=== PATIENT | male | born 1970 | race African-American/Black ===

== ENCOUNTER 2019-03-04 04:07 | Inpatient (IN) | payer BC ==
[~2019-03-04] VITALS: Ht 185.4 cm; Wt 105.3 kg
[2019-03-04] VITALS (9 sets, daily range): BP systolic 148–221; BP diastolic 85–113
[2019-03-04] MEDS ORDERED: IPRATRPIUM/ALBUTEROL 0.5/2.5MG 3 ML NEBU. NEB ONE (04:15)
[2019-03-04] MEDS ORDERED: NITROGLYCERIN OINT 1 GM PACKET. TP ONE (04:30)
[2019-03-04] MEDS ORDERED: ASPIRIN 325 MG TABLET PO ONE (04:30)
[2019-03-04 04:34] LABS: BASO # 0.1 x10^3/uL (0.0-0.2); BASO % 1 % (0-3); EOS # 0.1 x10^3/uL (0.0-0.7); EOS % 2 % (0-3); HEMATOCRIT 35.3 % (39.0-53.0); HEMOGLOBIN 11.3 g/dL (13.0-17.5); LYMPH # 1.9 x10^3/uL (1.0-4.8); LYMPH % 24 % (24-48); MEAN CORPUSCULAR HEMOGLOBIN 27 pg (25-35); MEAN CORPUSCULAR HGB CONC 32 g/dL (31-37); MEAN CORPUSCULAR VOLUME 83 fL (79-100); MONO # 0.6 x10^3/uL (0.0-1.1); MONO % 8 % (0-9); NEUT # 5.3 x10^3uL (1.8-7.7); NEUT % 66 % (31-73); PLATELET COUNT 142 x10^3/uL (140-400); RED BLOOD COUNT 4.25 x10^6/uL (4.30-5.70); WHITE BLOOD COUNT 8.1 x10^3/uL (4.0-11.0)
[2019-03-04 04:44] LABS: CALCIUM 8.5 mg/dL (8.5-10.1); CREATININE 5.4 mg/dL (0.7-1.3); GFR 11.3; POTASSIUM 3.1 mmol/L (3.5-5.1)
--- NOTE | 2019-03-04 04:50 | PHYS DOC ---
Past Medical History Past Medical History: Diabetes-Type II, Hypertension Past Surgical History: No Surgical History Smoking: Cigarettes Alcohol Use: Occasionally Drug Use: None Adult General Chief Complaint Chief Complaint: SHORTNESS OF BREATH HPI HPI Patient is a 48 year old male who presents with acute onset shortness of breath. Approximately 40 minutes ago, patient was watching TV when he had immediate difficulty breathing. He denies experiencing any chest pain or cough but does remember feeling fairly faint at onset. He is in visible distress with audible crackling during his respirations. Per report of patient's friend, patient is noncompliant with his "water pill" and does not manage his hypertension well. He is a smoker but denies any COPD or asthma. Patient has not had recent sick contacts and denies any complaints aside from shortness of breath at this time. Review of Systems Review of Systems Constitutional: Denies fever or chills [] Eyes: Denies blurred vision or diplopia [] HENT: Denies nasal congestion or sore throat [] Respiratory: Reports shortness of breath and dyspnea. Denies cough. [] Cardiovascular: Denies chest pain or palpitations [] GI: Denies abdominal pain, nausea, vomiting, or diarrhea [] Integument: Denies rash or skin lesions [] Neurologic: Denies headache, focal weakness or sensory changes [] Complete review of systems found to be within normal limits, except as documented in this note. Current Medications Current Medications Current Medications Medications (Trade) Dose Ordered Sig/Sakshi Start Time Stop Time Status Last Admin Dose Admin Albuterol/ Ipratropium (Duoneb) 3 ml 1X ONCE 03/04/19 04:15 03/04/19 04:26 DC 03/04/19 04:20 3 ML Aspirin (Karime Aspirin) 325 mg 1X ONCE 03/04/19 04:30 03/04/19 04:31 DC 03/04/19 04:30 325 MG Bumetanide (Bumex) 1 mg 1X ONCE 03/04/19 05:15 03/04/19 05:16 DC 03/04/19 05:23 1 MG Dextrose (Dextrose 50%-Water Syringe) 12.5 gm PRN Q15MIN PRN 03/04/19 05:00 Fentanyl Citrate (Fentanyl 2ml Vial) 50 mcg PRN Q2HR PRN 03/04/19 05:00 Heparin Sodium (Porcine) (Heparin Sodium) 4,000 unit 1X ONCE 03/04/19 05:15 03/04/19 05:16 DC 03/04/19 05:24 4,000 UNIT Heparin Sodium/ Dextrose 500 ml @ 0 mls/hr CONT PRN 03/04/19 05:15 03/04/19 05:25 20 MLS/HR Hydralazine HCl (Apresoline Inj) 20 mg 1X ONCE 03/04/19 05:15 03/04/19 05:16 DC Labetalol HCl (Normodyne Iv Push) 10 mg 1X ONCE 03/04/19 05:00 03/04/19 05:01 DC 03/04/19 05:40 10 MG Nitroglycerin (Nitro-Bid Oint) 1 inch 1X ONCE 03/04/19 04:30 03/04/19 04:31 DC 03/04/19 04:31 1 INCH Ondansetron HCl (Zofran) 4 mg PRN Q8HRS PRN 03/04/19 05:00 03/05/19 04:59 Potassium Chloride (Klor-Con) 20 meq 1X ONCE 03/04/19 05:15 03/04/19 05:16 DC 03/04/19 05:25 20 MEQ Allergies Allergies Allergies Coded Allergies Type Severity Reaction Last Updated Verified No Known Drug Allergies 03/04/19 No Physical Exam Physical Exam Constitutional: Patient with audible crackles during respiration and in obvious acute distress [] HENT: Normocephalic, atraumatic. [] Eyes: EOMI, conjunctiva normal, no discharge. [] Neck: Normal range of motion, no stridor. [] Cardiovascular: Tachycardia with regular rhythm and no murmur[] Lungs & Thorax: Diffuse crackles throughout b/l lung roche. [] Abdomen: Protuberant, soft and nontender [] Skin: Warm, dry, no erythema, no rash. [] Extremities: Radial pulses +2 b/l, cap refill < 2 seconds. [] Neurologic: Alert and oriented, normal motor function, normal sensory function, no focal deficits noted. [] Psychologic: Affect normal, judgement normal, mood anxious. [] Current Patient Data Vital Signs Vital Signs Date Time Temp Pulse Resp B/P (MAP) Pulse Ox O2 Delivery O2 Flow Rate FiO2 03/04/19 05:34 102 27 212/130 (157) 97 Nasal Cannula 2.0 03/04/19 04:15 98.0 98.0 Lab Values Laboratory Tests Test 03/04/19 04:25 White Blood Count 8.1 x10^3/uL (4.0-11.0) Red Blood Count 4.25 x10^6/uL (4.30-5.70) L Hemoglobin 11.3 g/dL (13.0-17.5) L Hematocrit 35.3 % (39.0-53.0) L Mean Corpuscular Volume 83 fL (79-100) Mean Corpuscular Hemoglobin 27 pg (25-35) Mean Corpuscular Hemoglobin Concent 32 g/dL (31-37) Red Cell Distribution Width 14.0 % (11.5-14.5) Platelet Count 142 x10^3/uL (140-400) Neutrophils (%) (Auto) 66 % (31-73) Lymphocytes (%) (Auto) 24 % (24-48) Monocytes (%) (Auto) 8 % (0-9) Eosinophils (%) (Auto) 2 % (0-3) Basophils (%) (Auto) 1 % (0-3) Neutrophils # (Auto) 5.3 x10^3uL (1.8-7.7) Lymphocytes # (Auto) 1.9 x10^3/uL (1.0-4.8) Monocytes # (Auto) 0.6 x10^3/uL (0.0-1.1) Eosinophils # (Auto) 0.1 x10^3/uL (0.0-0.7) Basophils # (Auto) 0.1 x10^3/uL (0.0-0.2) Sodium Level 143 mmol/L (136-145) Potassium Level 3.1 mmol/L (3.5-5.1) L Chloride Level 105 mmol/L (98-107) Carbon Dioxide Level 23 mmol/L (21-32) Anion Gap 15 (6-14) H Blood Urea Nitrogen 53 mg/dL (8-26) H Creatinine 5.4 mg/dL (0.7-1.3) H Estimated GFR (Cockcroft-Gault) 11.3 BUN/Creatinine Ratio 10 (6-20) Glucose Level 121 mg/dL (70-99) H Lactic Acid Level 1.4 mmol/L (0.4-2.0) Calcium Level 8.5 mg/dL (8.5-10.1) Magnesium Level 2.0 mg/dL (1.8-2.4) Total Bilirubin 0.3 mg/dL (0.2-1.0) Aspartate Amino Transferase (AST) 23 U/L (15-37) Alanine Aminotransferase (ALT) 29 U/L (16-63) Alkaline Phosphatase 84 U/L (46-116) Creatine Kinase 490 U/L (39-308) H Creatine Kinase MB (Mass) 5.6 ng/mL (0.0-3.6) H Creatine Kinase MB Relative Index 1.1 % (0-4) Troponin I Quantitative 0.192 ng/mL (0.000-0.055) GR-Awr-P-Type Natriuretic Peptide 6302 pg/mL (0-124) H Total Protein 8.2 g/dL (6.4-8.2) Albumin 3.5 g/dL (3.4-5.0) Albumin/Globulin Ratio 0.7 (1.0-1.7) L Laboratory Tests 03/04/19 04:25 Laboratory Tests 03/04/19 04:25 EKG EKG @ 0418: Sinus tachycardia with rate of 113. Normal axis. No Q waves present. ST depression and T inversions in leads I, II, aVL, V5 and V6. No ST elevation. [] Radiology/Procedures Radiology/Procedures Chest AP Only: Cardiomegaly with cephalization of pulmonary vasculature and prominent lung markings. Initial interpretation provided by ED physician. [] Course & Med Decision Making Course & Med Decision Making Pertinent Labs and Imaging studies reviewed. (See chart for details) Patient is a 48 year old male who presents to the ED with acute onset shortness of breath. Lung auscultation revealed diffuse crackles in both lung roche. EKG showed sinus tachycardia with rate of [address] depression and T inversion in I, II, aVL, V5 and V6 suggestive of ischemia. Troponin 0.192. CK-MB of 5.6. Pro-BNP 6302. Chest X-ray showed cardiomegaly with cephalization of pulmonary vasculature and prominent lung markings. Creatinine 5.4. K of 3.1. CBC unremarkable. Patient given labetalol without adequate reduction of blood pressure and was thus given hydralazine. Blood pressure currently 199/124 with HR of 88. Bumex given. Cardiology consulted who recommended initiation of heparin given elevated troponin. Discussed with patient that his symptoms and results likely represent flash pulmonary edema and myocardial strain. Patient requiring admission for further evaluation and treatment. Discussed with Dr. Cobian who is in agreement with admission. Discussed findings and plan with patient and family, who acknowledge understanding and agreement. [] Dragon Disclaimer Dragon Disclaimer This electronic medical record was generated, in whole or in part, using a voice recognition dictation system. Departure Departure Impression: Primary Impression: Shortness of breath Additional Impressions: Hypoxia Elevated troponin Hypokalemia Elevated serum creatinine Disposition: ADMITTED INPATIENT Admitting Physician: Other (Aranza) Condition: GUARDED Problem Qualifiers AGGIE ROSE DO March 04, 2019 04:49
[2019-03-04 04:52] LABS: ALBUMIN 3.5 g/dL (3.4-5.0); ALBUMIN/GLOBULIN RATIO 0.7 (1.0-1.7); TOTAL BILIRUBIN 0.3 mg/dL (0.2-1.0); TOTAL PROTEIN 8.2 g/dL (6.4-8.2)
[2019-03-04] MEDS ORDERED: LABETALOL 20 MG/4 ML DISP.SYRIN. IVP ONE (05:00)
[2019-03-04] MEDS ORDERED: ONDANSETRON PF 4 MG/2 ML VIAL. IV PRN (05:00)
[2019-03-04] MEDS ORDERED: DEXTROSE 50% 25 GM / 50ML DISP.SYRIN. IV PRN (05:00)
[2019-03-04] MEDS ORDERED: BUMETANIDE 1 MG/4 ML VIAL. IV ONE (05:15)
[2019-03-04] MEDS ORDERED: hydrALAZINE 20 MG/ML VIAL. IVP ONE (05:15)
[2019-03-04] MEDS ORDERED: HEPARIN for IV BOLUS 10,000 UNIT/10 ML VIAL. IV ONE (05:15)
[2019-03-04] MEDS ORDERED: POTASSIUM CHLORIDE 20 MEQ TABLET.ER. PO ONE (05:15)
[2019-03-04] MEDS: HEPARIN 25,000UTS/500ML PREMIX 500 ML IV PRN (05:25)
[2019-03-04 06:36] LABS: BILIRUBIN,URINE NEGATIVE (NEG); CLARITY,URINE CLEAR; COLOR,URINE YELLOW; NITRITE,URINE NEGATIVE (NEG); PH,URINE 5.5; PROTEIN,URINE 100 mg/dL (NEG-TRACE); UROBILINOGEN,URINE 0.2 mg/dL (0.2 mg/dL)
--- NOTE | 2019-03-04 06:48 | RAD ---
CHEST AP ONLY Clinical Indication: Dyspnea Comparison: None. Findings: Mildly tortuous thoracic aorta. Cardiac size upper limits of normal. Lungs are clear. There is no pneumothorax. No pleural effusion is appreciated. No acute bone abnormality. IMPRESSION: No acute cardiopulmonary process. Electronically signed by: Galileo Tinoco MD (03/04/2019 6:45 AM) [facility]
[2019-03-04 06:59] LABS: BARBITURATES NEG (NEG); BENZODIAZEPINES NEG (NEG); CANNABINOIDS NEG (NEG); COCAINE NEG (NEG); METHADONE NEG (NEG); OPIATES NEG (NEG); PHENCYCLIDINE NEG (NEG)
[2019-03-04 07:01] LABS: AMPHETAMINE/METHAMPHETAMINE NEG (NEG)
[2019-03-04 07:11] LABS: BACTERIA,URINE 0 /HPF (0-FEW); HYALINE CASTS, URINE OCCASIONAL /HPF; SQUAMOUS EPITHELIAL CELL,UR OCC /LPF; WBC,URINE OCC /HPF (0-4)
[2019-03-04] MEDS: IPRATRPIUM/ALBUTEROL 0.5/2.5MG 3 ML NEBU. NEB SCH ×2 (07:57→12:12)
[2019-03-04] MEDS: INSULIN LISPRO 300 UNITS/3 ML INSULN.PEN. SQ SCH ×3 (08:00→17:00)
--- NOTE | 2019-03-04 08:59 | NUR ---
nursing note patient states he has no history diabetes and does not want his blood sugar checked or insulin administered
[2019-03-04] MEDS: fentaNYL PF VIAL 100 MCG/2 ML VIAL IV PRN (09:41)
--- NOTE | 2019-03-04 09:52 | PDOC1 ---
History and Physical Date of Admission Date of Admission DATE: 03/04/19 TIME: 09:52 Identification/Chief Complaint Chief Complaint SEEN IN ER THIS AM ,,Patient is a 48 year old male who presents to the ED with acute onset shortness of breath. Lung auscultation revealed diffuse crackles in both lung roche. EKG showed sinus tachycardia with rate of [address] depression and T inversion in I, II, aVL, V5 and V6 suggestive of ischemia. Troponin 0.192. CK-MB of 5.6. Pro-BNP 6302. Chest X-ray showed cardiomegaly with cephalization of pulmonary vasculature and prominent lung markings. Creatinine 5.4. K of 3.1. CBC unremarkable. Patient given labetalol without adequate reduction of blood pressure and was thus given hydralazine. Blood pressure currently 199/124 with HR of 88. Bumex given. Cardiology consulted patient was watching TV when he had immediate difficulty breathing. He denies experiencing any chest pain or cough but does remember feeling fairly faint at onset. Per report of patient's friend, patient is noncompliant with his "water pill" and does not manage his hypertension well. He is a smoker but denies any COPD or asthma. 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[employer] Psych: Addictions Renal/: Chronic renal insuff, Chronic renal failure Dermatology: No pertinent hx Family History Family History: Alcohol Abuse, Hypertension Social History Smoke: <1 pack per day ALCOHOL: heavy Drugs: None Current Problem List Problem List Problems Medical Problems: (1) Elevated serum creatinine Status: Acute (2) Elevated troponin Status: Acute (3) Hypokalemia Status: Acute (4) Shortness of breath Status: Acute Current Medications Current Medications Current Medications Albuterol/ Ipratropium (Duoneb) 3 ml 1X ONCE NEB Last administered on 03/04/19at 04:20; Start 03/04/19 at 04:15; Stop 03/04/19 at 04:26; Status DC Nitroglycerin (Nitro-Bid Oint) 1 inch 1X ONCE TP Last administered on 03/04/19at 04:31; Start 03/04/19 at 04:30; Stop 03/04/19 at 04:31; Status DC Aspirin (Karime Aspirin) 325 mg 1X ONCE PO Last administered on 03/04/19 04:30; Start 03/04/19 at 04:30; Stop 03/04/19 at 04:31; Status DC Labetalol HCl (Normodyne Iv Push) 10 mg 1X ONCE IVP Last administered on 03/04/19at 05:40; Start 03/04/19 at 05:00; Stop 03/04/19 at 05:01; Status DC Ondansetron HCl (Zofran) 4 mg PRN Q8HRS PRN IV NAUSEA/VOMITING; Start 03/04/19 at 05:00; Stop 03/05/19 at 04:59 Fentanyl Citrate (Fentanyl 2ml Vial) 50 mcg PRN Q2HR PRN IV PAIN Last administered on 03/04/19at 09:41; Start 03/04/19 at 05:00 Albuterol/ Ipratropium (Duoneb) 3 ml RTQID NEB Last administered on 03/04/19at 07:57; Start 03/04/19 at 08:00; Stop 03/05/19 at 07:59 Insulin Human Lispro (HumaLOG) 0-5 UNITS TIDWMEALS SQ ; Start 03/04/19 at 08:00 Dextrose (Dextrose 50%-Water Syringe) 12.5 gm PRN Q15MIN PRN IV SEE COMMENTS; Start 03/04/19 at 05:00 Hydralazine HCl (Apresoline Inj) 20 mg 1X ONCE IVP Last administered on 03/04/19at 06:09; Start 03/04/19 at 05:15; Stop 03/04/19 at 05:16; Status DC Heparin Sodium (Porcine) (Heparin Sodium) 4,000 unit 1X ONCE IV Last administered on 03/04/19 05:24; Start 03/04/19 at 05:15; Stop 03/04/19 at 05:16; Status DC Heparin Sodium/ Dextrose 500 ml @ 0 mls/hr CONT PRN IV SEE I/O RECORD Last administered on 03/04/19at 05:25; Start 03/04/19 at 05:15 Potassium Chloride (Klor-Con) 20 meq 1X ONCE PO Last administered on 5/18/19at 05:25; Start 03/04/19 at 05:15; Stop 03/04/19 at 05:16; Status DC Bumetanide (Bumex) 1 mg 1X ONCE IV Last administered on 03/04/19at 05:23; Start 03/04/19 at 05:15; Stop 03/04/19 at 05:16; Status DC Allergies Allergies: Coded Allergies: No Known Drug Allergies (Unverified , 03/04/19) ROS Review of System Review of Systems Review of Systems Constitutional: Denies fever or chills [] Eyes: Denies blurred vision or diplopia [] HENT: Denies nasal congestion or sore throat [] Respiratory: Reports shortness of breath and dyspnea. Denies cough. [] Cardiovascular: Denies chest pain or palpitations [] GI: Denies abdominal pain, nausea, vomiting, or diarrhea [] Integument: Denies rash or skin lesions [] Neurologic: Denies headache, focal weakness or sensory changes [] 14 PT review of systems found to be within normal limits, except as documented Physical Exam Physical Exam Physical Exam Physical Exam Constitutional: Patient with audible crackles during respiration and in obvious acute distress [] HENT: Normocephalic, atraumatic. [] Eyes: EOMI, conjunctiva normal, no discharge. [] Neck: Normal range of motion, no stridor. [] Cardiovascular: Tachycardia with regular rhythm and no murmur[] Lungs & Thorax: Diffuse crackles throughout b/l lung roche. [] Abdomen: Protuberant, soft and nontender [] Skin: Warm, dry, no erythema, no rash. [] Extremities: Radial pulses +2 b/l, cap refill < 2 seconds. [] Neurologic: Alert and oriented, normal motor function, normal sensory function, no focal deficits noted. [] Psychologic: Affect normal, judgement normal, mood anxious. [] General: Alert, Oriented X3, Cooperative, mild distress HEENT: Atraumatic, EOMI, Mucous membr. moist/pink Heart: no thrills Breasts: Not examined Abdomen: Normal bowel sounds, Soft Rectal Exam: not examined Extremities: No cyanosis Neuro: Normal speech, Cranial nerves 3-12 NL Psych/Mental Status: Mental status NL, Mood NL Vitals Vitals Vital Signs Date Time Temp Pulse Resp B/P (MAP) Pulse Ox O2 Delivery O2 Flow Rate FiO2 03/04/19 09:41 16 95 Room Air 03/04/19 08:00 98.6 92 152/85 (107) 2.0 98.6 Labs Labs Laboratory Tests Test 03/04/19 04:25 03/04/19 06:10 03/04/19 07:35 White Blood Count 8.1 x10^3/uL (4.0-11.0) Red Blood Count 4.25 x10^6/uL (4.30-5.70) Hemoglobin 11.3 g/dL (13.0-17.5) Hematocrit 35.3 % (39.0-53.0) Mean Corpuscular Volume 83 fL (79-100) Mean Corpuscular Hemoglobin 27 pg (25-35) Mean Corpuscular Hemoglobin Concent 32 g/dL (31-37) Red Cell Distribution Width 14.0 % (11.5-14.5) Platelet Count 142 x10^3/uL (140-400) Neutrophils (%) (Auto) 66 % (31-73) Lymphocytes (%) (Auto) 24 % (24-48) Monocytes (%) (Auto) 8 % (0-9) Eosinophils (%) (Auto) 2 % (0-3) Basophils (%) (Auto) 1 % (0-3) Neutrophils # (Auto) 5.3 x10^3uL (1.8-7.7) Lymphocytes # (Auto) 1.9 x10^3/uL (1.0-4.8) Monocytes # (Auto) 0.6 x10^3/uL (0.0-1.1) Eosinophils # (Auto) 0.1 x10^3/uL (0.0-0.7) Basophils # (Auto) 0.1 x10^3/uL (0.0-0.2) Sodium Level 143 mmol/L (136-145) Potassium Level 3.1 mmol/L (3.5-5.1) Chloride Level 105 mmol/L (98-107) Carbon Dioxide Level 23 mmol/L (21-32) Anion Gap 15 (6-14) Blood Urea Nitrogen 53 mg/dL (8-26) Creatinine 5.4 mg/dL (0.7-1.3) Estimated GFR (Cockcroft-Gault) 11.3 BUN/Creatinine Ratio 10 (6-20) Glucose Level 121 mg/dL (70-99) Lactic Acid Level 1.4 mmol/L (0.4-2.0) Calcium Level 8.5 mg/dL (8.5-10.1) Magnesium Level 2.0 mg/dL (1.8-2.4) Total Bilirubin 0.3 mg/dL (0.2-1.0) Aspartate Amino Transf (AST/SGOT) 23 U/L (15-37) Alanine Aminotransferase (ALT/SGPT) 29 U/L (16-63) Alkaline Phosphatase 84 U/L (46-116) Creatine Kinase 490 U/L (39-308) Creatine Kinase MB (Mass) 5.6 ng/mL (0.0-3.6) Creatine Kinase MB Relative Index 1.1 % (0-4) Troponin I Quantitative 0.192 ng/mL (0.000-0.055) 0.175 ng/mL (0.000-0.055) XI-Brc-S-Type Natriuretic Peptide 6302 pg/mL (0-124) Total Protein 8.2 g/dL (6.4-8.2) Albumin 3.5 g/dL (3.4-5.0) Albumin/Globulin Ratio 0.7 (1.0-1.7) Urine Collection Type Unknown Urine Color Yellow Urine Clarity Clear Urine pH 5.5 Urine Specific [place] 1.010 Urine Protein 100 mg/dL (NEG-TRACE) Urine Glucose (UA) Negative mg/dL (NEG) Urine Ketones (Stick) Negative mg/dL (NEG) Urine Blood Small (NEG) Urine Nitrite Negative (NEG) Urine Bilirubin Negative (NEG) Urine Urobilinogen Dipstick 0.2 mg/dL (0.2 mg/dL) Urine Leukocyte Esterase Negative (NEG) Urine RBC 1-2 /HPF (0-2) Urine WBC Occ /HPF (0-4) Urine Squamous Epithelial Cells Occ /LPF Urine Bacteria 0 /HPF (0-FEW) Urine Hyaline Casts Occasional /HPF Urine Opiates Screen Neg (NEG) Urine Methadone Screen Neg (NEG) Urine Barbiturates Neg (NEG) Urine Phencyclidine Screen Neg (NEG) Urine Amphetamine/Methamphetamine Neg (NEG) Urine Benzodiazepines Screen Neg (NEG) Urine Cocaine Screen Neg (NEG) Urine Cannabinoids Screen Neg (NEG) Urine Ethyl Alcohol Pos (NEG) Laboratory Tests Test 03/04/19 04:25 03/04/19 06:10 03/04/19 07:35 White Blood Count 8.1 x10^3/uL (4.0-11.0) Red Blood Count 4.25 x10^6/uL (4.30-5.70) Hemoglobin 11.3 g/dL (13.0-17.5) Hematocrit 35.3 % (39.0-53.0) Mean Corpuscular Volume 83 fL (79-100) Mean Corpuscular Hemoglobin 27 pg (25-35) Mean Corpuscular Hemoglobin Concent 32 g/dL (31-37) Red Cell Distribution Width 14.0 % (11.5-14.5) Platelet Count 142 x10^3/uL (140-400) Neutrophils (%) (Auto) 66 % (31-73) Lymphocytes (%) (Auto) 24 % (24-48) Monocytes (%) (Auto) 8 % (0-9) Eosinophils (%) (Auto) 2 % (0-3) Basophils (%) (Auto) 1 % (0-3) Neutrophils # (Auto) 5.3 x10^3uL (1.8-7.7) Lymphocytes # (Auto) 1.9 x10^3/uL (1.0-4.8) Monocytes # (Auto) 0.6 x10^3/uL (0.0-1.1) Eosinophils # (Auto) 0.1 x10^3/uL (0.0-0.7) Basophils # (Auto) 0.1 x10^3/uL (0.0-0.2) Sodium Level 143 mmol/L (136-145) Potassium Level 3.1 mmol/L (3.5-5.1) Chloride Level 105 mmol/L (98-107) Carbon Dioxide Level 23 mmol/L (21-32) Anion Gap 15 (6-14) Blood Urea Nitrogen 53 mg/dL (8-26) Creatinine 5.4 mg/dL (0.7-1.3) Estimated GFR (Cockcroft-Gault) 11.3 BUN/Creatinine Ratio 10 (6-20) Glucose Level 121 mg/dL (70-99) Lactic Acid Level 1.4 mmol/L (0.4-2.0) Calcium Level 8.5 mg/dL (8.5-10.1) Magnesium Level 2.0 mg/dL (1.8-2.4) Total Bilirubin 0.3 mg/dL (0.2-1.0) Aspartate Amino Transf (AST/SGOT) 23 U/L (15-37) Alanine Aminotransferase (ALT/SGPT) 29 U/L (16-63) Alkaline Phosphatase 84 U/L (46-116) Creatine Kinase 490 U/L (39-308) Creatine Kinase MB (Mass) 5.6 ng/mL (0.0-3.6) Creatine Kinase MB Relative Index 1.1 % (0-4) Troponin I Quantitative 0.192 ng/mL (0.000-0.055) 0.175 ng/mL (0.000-0.055) TA-Itf-E-Type Natriuretic Peptide 6302 pg/mL (0-124) Total Protein 8.2 g/dL (6.4-8.2) Albumin 3.5 g/dL (3.4-5.0) Albumin/Globulin Ratio 0.7 (1.0-1.7) Urine Collection Type Unknown Urine Color Yellow Urine Clarity Clear Urine pH 5.5 Urine Specific [place] 1.010 Urine Protein 100 mg/dL (NEG-TRACE) Urine Glucose (UA) Negative mg/dL (NEG) Urine Ketones (Stick) Negative mg/dL (NEG) Urine Blood Small (NEG) Urine Nitrite Negative (NEG) Urine Bilirubin Negative (NEG) Urine Urobilinogen Dipstick 0.2 mg/dL (0.2 mg/dL) Urine Leukocyte Esterase Negative (NEG) Urine RBC 1-2 /HPF (0-2) Urine WBC Occ /HPF (0-4) Urine Squamous Epithelial Cells Occ /LPF Urine Bacteria 0 /HPF (0-FEW) Urine Hyaline Casts Occasional /HPF Urine Opiates Screen Neg (NEG) Urine Methadone Screen Neg (NEG) Urine Barbiturates Neg (NEG) Urine Phencyclidine Screen Neg (NEG) Urine Amphetamine/Methamphetamine Neg (NEG) Urine Benzodiazepines Screen Neg (NEG) Urine Cocaine Screen Neg (NEG) Urine Cannabinoids Screen Neg (NEG) Urine Ethyl Alcohol Pos (NEG) Images Images CHEST AP ONLY Clinical Indication: Dyspnea Comparison: None. Findings: Mildly tortuous thoracic aorta. Cardiac size upper limits of normal. Lungs are clear. There is no pneumothorax. No pleural effusion is appreciated. No acute bone abnormality. IMPRESSION: No acute cardiopulmonary process. Electronically signed by: Galileo Tinoco MD (03/04/2019 6:45 AM) [facility] VTE Prophylaxis Ordered VTE Prophylaxis Devices: Yes VTE Pharmacological Prophylaxi: Yes Assessment/Plan Assessment/Plan Assessment 1. Congestive heart failure, acute on chronic, flash nature of pulmonary edema, . Check 2-D echo to assess LV systolic function. 2. Non-STEMI most probably type II but significant coronary artery disease needs to be ruled out. Telemetry did not show any significant arrhythmias. We will consider cardiac catheterization pending nephrology clearance. If he is deemed high risk from their standpoint, we will plan for stress test. 3. Accelerated hypertension: Start Norvasc 4. Diabetes mellitus type 2: 5. END STAGE RENAL DISEASEnephrology consultation. 6. TOBACCO ABUSE 7. OBESITY BMI 31 plan renal arterial duplex scan to rule out renal artery stenosis LEONIE cardiac catheterization pending nephrology clearance begin dialysis LEONIE D/W DR PATRICK Check 2-D echo CARDIOLOGY CONSULT NEPHROLOGY CONSULT 114 MIN CC TIME VINCENT BRADFORD MD March 04, 2019 09:52
--- NOTE | 2019-03-04 09:59 | EKG ---
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
--- NOTE | 2019-03-04 10:40 | PDOC2 ---
CONSULT Date of Consult Date of Consult DATE: 03/04/19 TIME: 10:40 Reason for Consult Reason for Consult: CHF, elevated troponin level Referring Physician Referring Physician: Dr. Watson Identification/Chief Complaint Chief Complaint Shortness of breath Source Source: Chart review, Patient History of Present Illness Reason for Visit: 48-year-old male presented with sudden onset shortness of breath and retrosternal chest pressure that started while he was watching television. He denied any previous history of chest pain or dyspnea. He also denied any orthopnea/PND, palpitations or syncope. Past Medical History Past Medical History Hypertension Chronic renal insufficiency Diabetes mellitus type 2 Past Surgical History Past Surgical History: No pertinent history Family History Family History: Hypertension Social History Social History Patient admitted to smoking cigarettes and occasional use of alcohol but denied any drug abuse Current Problem List Problem List Problems Medical Problems: (1) Elevated serum creatinine Status: Acute (2) Elevated troponin Status: Acute (3) Hypokalemia Status: Acute (4) Shortness of breath Status: Acute Current Medications Current Medications Current Medications Albuterol/ Ipratropium (Duoneb) 3 ml 1X ONCE NEB Last administered on 03/04/19at 04:20; Start 03/04/19 at 04:15; Stop 03/04/19 at 04:26; Status DC Nitroglycerin (Nitro-Bid Oint) 1 inch 1X ONCE TP Last administered on 03/04/19at 04:31; Start 03/04/19 at 04:30; Stop 03/04/19 at 04:31; Status DC Aspirin (Karime Aspirin) 325 mg 1X ONCE PO Last administered on 03/04/19at 04:30; Start 03/04/19 at 04:30; Stop 03/04/19 at 04:31; Status DC Labetalol HCl (Normodyne Iv Push) 10 mg 1X ONCE IVP Last administered on 03/04/19at 05:40; Start 03/04/19 at 05:00; Stop 03/04/19 at 05:01; Status DC Ondansetron HCl (Zofran) 4 mg PRN Q8HRS PRN IV NAUSEA/VOMITING; Start 03/04/19 at 05:00; Stop 03/05/19 at 04:59 Fentanyl Citrate (Fentanyl 2ml Vial) 50 mcg PRN Q2HR PRN IV PAIN Last administered on 03/04/19at 09:41; Start 03/04/19 at 05:00 Albuterol/ Ipratropium (Duoneb) 3 ml RTQID NEB Last administered on 03/04/19at 07:57; Start 03/04/19 at 08:00; Stop 03/05/19 at 07:59 Insulin Human Lispro (HumaLOG) 0-5 UNITS TIDWMEALS SQ ; Start 03/04/19 at 08:00 Dextrose (Dextrose 50%-Water Syringe) 12.5 gm PRN Q15MIN PRN IV SEE COMMENTS; Start 03/04/19 at 05:00 Hydralazine HCl (Apresoline Inj) 20 mg 1X ONCE IVP Last administered on 03/04/19at 06:09; Start 03/04/19 at 05:15; Stop 03/04/19 at 05:16; Status DC Heparin Sodium (Porcine) (Heparin Sodium) 4,000 unit 1X ONCE IV Last administered on 03/04/19at 05:24; Start 03/04/19 at 05:15; Stop 03/04/19 at 05:16; Status DC Heparin Sodium/ Dextrose 500 ml @ 0 mls/hr CONT PRN IV SEE I/O RECORD Last administered on 03/04/19at 05:25; Start 03/04/19 at 05:15 Potassium Chloride (Klor-Con) 20 meq 1X ONCE PO Last administered on 03/04/19at 05:25; Start 03/04/19 at 05:15; Stop 03/04/19 at 05:16; Status DC Bumetanide (Bumex) 1 mg 1X ONCE IV Last administered on 03/04/19at 05:23; Start 03/04/19 at 05:15; Stop 03/04/19 at 05:16; Status DC Allergies Allergies: Coded Allergies: No Known Drug Allergies (Unverified , 03/04/19) ROS PSYCHOLOGICAL ROS: No: Hallucinations Eyes: No Loss of vision HEENT: No: Epistaxis Respiratory: No: Hemoptysis Cardiovascular: yes Chest Pain Gastrointestinal: No Vomiting Genitourinary: No Hematuria Neurological: No Seizures Skin: No Rash Physical Exam General: Alert, Oriented X3 HEENT: Atraumatic, PERRLA Lungs: Clear to auscultation Heart: Regular rate Abdomen: Soft, No tenderness Extremities: No edema Neuro: Normal speech Psych/Mental Status: Mood NL Vitals VITALS Vital Signs Date Time Temp Pulse Resp B/P (MAP) Pulse Ox O2 Delivery O2 Flow Rate FiO2 03/04/19 09:41 16 95 Room Air 03/04/19 08:00 98.6 92 152/85 (107) 2.0 98.6 Labs Labs Laboratory Tests Test 03/04/19 04:25 03/04/19 06:10 03/04/19 07:35 White Blood Count 8.1 x10^3/uL (4.0-11.0) Red Blood Count 4.25 x10^6/uL (4.30-5.70) Hemoglobin 11.3 g/dL (13.0-17.5) Hematocrit 35.3 % (39.0-53.0) Mean Corpuscular Volume 83 fL (79-100) Mean Corpuscular Hemoglobin 27 pg (25-35) Mean Corpuscular Hemoglobin Concent 32 g/dL (31-37) Red Cell Distribution Width 14.0 % (11.5-14.5) Platelet Count 142 x10^3/uL (140-400) Neutrophils (%) (Auto) 66 % (31-73) Lymphocytes (%) (Auto) 24 % (24-48) Monocytes (%) (Auto) 8 % (0-9) Eosinophils (%) (Auto) 2 % (0-3) Basophils (%) (Auto) 1 % (0-3) Neutrophils # (Auto) 5.3 x10^3uL (1.8-7.7) Lymphocytes # (Auto) 1.9 x10^3/uL (1.0-4.8) Monocytes # (Auto) 0.6 x10^3/uL (0.0-1.1) Eosinophils # (Auto) 0.1 x10^3/uL (0.0-0.7) Basophils # (Auto) 0.1 x10^3/uL (0.0-0.2) Sodium Level 143 mmol/L (136-145) Potassium Level 3.1 mmol/L (3.5-5.1) Chloride Level 105 mmol/L (98-107) Carbon Dioxide Level 23 mmol/L (21-32) Anion Gap 15 (6-14) Blood Urea Nitrogen 53 mg/dL (8-26) Creatinine 5.4 mg/dL (0.7-1.3) Estimated GFR (Cockcroft-Gault) 11.3 BUN/Creatinine Ratio 10 (6-20) Glucose Level 121 mg/dL (70-99) Lactic Acid Level 1.4 mmol/L (0.4-2.0) Calcium Level 8.5 mg/dL (8.5-10.1) Magnesium Level 2.0 mg/dL (1.8-2.4) Total Bilirubin 0.3 mg/dL (0.2-1.0) Aspartate Amino Transf (AST/SGOT) 23 U/L (15-37) Alanine Aminotransferase (ALT/SGPT) 29 U/L (16-63) Alkaline Phosphatase 84 U/L (46-116) Creatine Kinase 490 U/L (39-308) Creatine Kinase MB (Mass) 5.6 ng/mL (0.0-3.6) Creatine Kinase MB Relative Index 1.1 % (0-4) Troponin I Quantitative 0.192 ng/mL (0.000-0.055) 0.175 ng/mL (0.000-0.055) DS-Bnt-K-Type Natriuretic Peptide 6302 pg/mL (0-124) Total Protein 8.2 g/dL (6.4-8.2) Albumin 3.5 g/dL (3.4-5.0) Albumin/Globulin Ratio 0.7 (1.0-1.7) Urine Collection Type Unknown Urine Color Yellow Urine Clarity Clear Urine pH 5.5 Urine Specific [place] 1.010 Urine Protein 100 mg/dL (NEG-TRACE) Urine Glucose (UA) Negative mg/dL (NEG) Urine Ketones (Stick) Negative mg/dL (NEG) Urine Blood Small (NEG) Urine Nitrite Negative (NEG) Urine Bilirubin Negative (NEG) Urine Urobilinogen Dipstick 0.2 mg/dL (0.2 mg/dL) Urine Leukocyte Esterase Negative (NEG) Urine RBC 1-2 /HPF (0-2) Urine WBC Occ /HPF (0-4) Urine Squamous Epithelial Cells Occ /LPF Urine Bacteria 0 /HPF (0-FEW) Urine Hyaline Casts Occasional /HPF Urine Opiates Screen Neg (NEG) Urine Methadone Screen Neg (NEG) Urine Barbiturates Neg (NEG) Urine Phencyclidine Screen Neg (NEG) Urine Amphetamine/Methamphetamine Neg (NEG) Urine Benzodiazepines Screen Neg (NEG) Urine Cocaine Screen Neg (NEG) Urine Cannabinoids Screen Neg (NEG) Urine Ethyl Alcohol Pos (NEG) Laboratory Tests Test 03/04/19 04:25 03/04/19 06:10 03/04/19 07:35 White Blood Count 8.1 x10^3/uL (4.0-11.0) Red Blood Count 4.25 x10^6/uL (4.30-5.70) Hemoglobin 11.3 g/dL (13.0-17.5) Hematocrit 35.3 % (39.0-53.0) Mean Corpuscular Volume 83 fL (79-100) Mean Corpuscular Hemoglobin 27 pg (25-35) Mean Corpuscular Hemoglobin Concent 32 g/dL (31-37) Red Cell Distribution Width 14.0 % (11.5-14.5) Platelet Count 142 x10^3/uL (140-400) Neutrophils (%) (Auto) 66 % (31-73) Lymphocytes (%) (Auto) 24 % (24-48) Monocytes (%) (Auto) 8 % (0-9) Eosinophils (%) (Auto) 2 % (0-3) Basophils (%) (Auto) 1 % (0-3) Neutrophils # (Auto) 5.3 x10^3uL (1.8-7.7) Lymphocytes # (Auto) 1.9 x10^3/uL (1.0-4.8) Monocytes # (Auto) 0.6 x10^3/uL (0.0-1.1) Eosinophils # (Auto) 0.1 x10^3/uL (0.0-0.7) Basophils # (Auto) 0.1 x10^3/uL (0.0-0.2) Sodium Level 143 mmol/L (136-145) Potassium Level 3.1 mmol/L (3.5-5.1) Chloride Level 105 mmol/L (98-107) Carbon Dioxide Level 23 mmol/L (21-32) Anion Gap 15 (6-14) Blood Urea Nitrogen 53 mg/dL (8-26) Creatinine 5.4 mg/dL (0.7-1.3) Estimated GFR (Cockcroft-Gault) 11.3 BUN/Creatinine Ratio 10 (6-20) Glucose Level 121 mg/dL (70-99) Lactic Acid Level 1.4 mmol/L (0.4-2.0) Calcium Level 8.5 mg/dL (8.5-10.1) Magnesium Level 2.0 mg/dL (1.8-2.4) Total Bilirubin 0.3 mg/dL (0.2-1.0) Aspartate Amino Transf (AST/SGOT) 23 U/L (15-37) Alanine Aminotransferase (ALT/SGPT) 29 U/L (16-63) Alkaline Phosphatase 84 U/L (46-116) Creatine Kinase 490 U/L (39-308) Creatine Kinase MB (Mass) 5.6 ng/mL (0.0-3.6) Creatine Kinase MB Relative Index 1.1 % (0-4) Troponin I Quantitative 0.192 ng/mL (0.000-0.055) 0.175 ng/mL (0.000-0.055) PH-Phq-G-Type Natriuretic Peptide 6302 pg/mL (0-124) Total Protein 8.2 g/dL (6.4-8.2) Albumin 3.5 g/dL (3.4-5.0) Albumin/Globulin Ratio 0.7 (1.0-1.7) Urine Collection Type Unknown Urine Color Yellow Urine Clarity Clear Urine pH 5.5 Urine Specific [place] 1.010 Urine Protein 100 mg/dL (NEG-TRACE) Urine Glucose (UA) Negative mg/dL (NEG) Urine Ketones (Stick) Negative mg/dL (NEG) Urine Blood Small (NEG) Urine Nitrite Negative (NEG) Urine Bilirubin Negative (NEG) Urine Urobilinogen Dipstick 0.2 mg/dL (0.2 mg/dL) Urine Leukocyte Esterase Negative (NEG) Urine RBC 1-2 /HPF (0-2) Urine WBC Occ /HPF (0-4) Urine Squamous Epithelial Cells Occ /LPF Urine Bacteria 0 /HPF (0-FEW) Urine Hyaline Casts Occasional /HPF Urine Opiates Screen Neg (NEG) Urine Methadone Screen Neg (NEG) Urine Barbiturates Neg (NEG) Urine Phencyclidine Screen Neg (NEG) Urine Amphetamine/Methamphetamine Neg (NEG) Urine Benzodiazepines Screen Neg (NEG) Urine Cocaine Screen Neg (NEG) Urine Cannabinoids Screen Neg (NEG) Urine Ethyl Alcohol Pos (NEG) Assessment/Plan Assessment/Plan 1. Congestive heart failure, most probably acute on chronic, sudden onset. Presently better compensated. Continue gentle diuresis in lieu of elevated creatinine level. Due to the flash nature of pulmonary edema, we will obtain renal arterial duplex scan to rule out renal artery stenosis. Check 2-D echo to assess LV systolic function. 2. Non-STEMI most probably type II but significant coronary artery disease needs to be ruled out. Telemetry did not show any significant arrhythmias. We will consider cardiac catheterization pending nephrology clearance. If he is deemed high risk from their standpoint, we will plan for stress test. 3. Accelerated hypertension: Start Norvasc for better control. Rule out renal artery stenosis as stated above. 4. Diabetes mellitus type 2: Treat per IM 5. Renal insufficiency, most probably acute on chronic. Consider nephrology consultation. Thank you for your consultation ENA NORRIS MD March 04, 2019 10:40
[2019-03-04] MEDS: amLODIPine BESYLATE 10 MG TABLET PO SCH (11:35)
[2019-03-04] MEDS: hydrALAZINE 20 MG/ML VIAL. IVP PRN ×3 (11:36→21:36)
[2019-03-04] MEDS ORDERED: ANTI-COAG MONITOR BY PHARMACY. MC PRN (12:30)
[2019-03-05] MEDS: HEPARIN 25,000UTS/500ML PREMIX 500 ML IV PRN ×2 (01:06→16:50)
--- NOTE | 2019-03-05 01:08 | CONS ---
DATE OF CONSULTATION: NEPHROLOGY CONSULTATION REASON FOR CONSULTATION: Renal failure. REQUESTING PHYSICIAN: Dr. Watson. HISTORY OF PRESENT ILLNESS: This is a 48-year-old gentleman with history of known severe hypertension. He was followed by Dr. Florentino Parham's practice at [facility]. He states that he last saw Dr. Florentino Parham one year prior to this evaluation. He failed to follow up since then. At that time, his GFR was apparently 20 by his report. No diabetes. No nephrolithiasis or gross hematuria. The patient currently presents with hypertension, accelerated blood pressure, EKG changes and increased troponin, suggestive of ischemic cardiomyopathy. He is in need of cardiac catheterization. Current GFR is 11 mL per minute. PAST MEDICAL HISTORY: Hypertension, chronic kidney disease stage 4. ALLERGIES: None. MEDICATIONS: Reviewed. FAMILY HISTORY: Noncontributory. SOCIAL HISTORY: The patient resides with . Occasional alcohol use, smokes cigarettes. REVIEW OF SYSTEMS: No headache, sinus problem, nasal drainage, epistaxis or change in vision or hearing. No difficulty swallowing. No fever, chills, cough, sputum production or hemoptysis. No chest pain. He does have shortness of breath and dyspnea on exertion. No abdominal pain. No nausea, vomiting or diarrhea. No seizure or malignancies. PHYSICAL EXAMINATION: GENERAL APPEARANCE: The patient awake, conversant. HEENT: Clear. NECK: No increased JVD. No thyromegaly, mass or adenopathy. LUNGS: Decreased breath sounds at the bases; otherwise, clear. CARDIAC: Without S3 or rub. ABDOMEN: Soft, nontender. No bruits, obese. EXTREMITIES: With 1+ bilateral lower extremity edema, pitting. NEUROLOGIC: Nonfocal, nonlocalized. PSYCHIATRIC: Fair attention to detail, appropriate affect. LABORATORY DATA: Sodium 143, potassium 3.1, chloride 105, CO2 of 23, BUN 53, creatinine 5.4 and GFR is 11. Mag 2.0. Hemoglobin , hematocrit 35%. Urinalysis, specific gravity 1.010 and 100 mg percent protein. IMPRESSION: 1. Chronic kidney disease secondary to hypertension and nephrosclerosis, currently end-stage renal disease status. 2. Hypertension with poor control on presentation. 3. Possible ischemic cardiomyopathy. DISCUSSION AND RECOMMENDATIONS: The patient is currently in end-stage renal disease status. Discussed need for initiation of dialysis or earlier . Also discussed that when cardiac catheterization is pursued, it will worsen his renal function further. He is undecided. If he is not willing to proceed with dialysis, we would recommend not proceeding with cardiac catheterization. AGGIE PATRICK MD DR: RICK/nkechi JOB#: [id number] / [id number]
[2019-03-05 03:17] VITALS: BP 184/96
[2019-03-05] MEDS: hydrALAZINE 20 MG/ML VIAL. IVP PRN ×2 (03:20→08:27)
[2019-03-05 04:26] LABS: BASO % 0 % (0-3); EOS # 0.1 x10^3/uL (0.0-0.7); EOS % 1 % (0-3); HEMATOCRIT 32.7 % (39.0-53.0); HEMOGLOBIN 10.4 g/dL (13.0-17.5); LYMPH # 1.4 x10^3/uL (1.0-4.8); LYMPH % 17 % (24-48); MEAN CORPUSCULAR HEMOGLOBIN 27 pg (25-35); MEAN CORPUSCULAR HGB CONC 32 g/dL (31-37); MEAN CORPUSCULAR VOLUME 83 fL (79-100); MONO # 0.9 x10^3/uL (0.0-1.1); MONO % 11 % (0-9); NEUT # 5.9 x10^3uL (1.8-7.7); NEUT % 71 % (31-73); PLATELET COUNT 140 x10^3/uL (140-400); RED BLOOD COUNT 3.92 x10^6/uL (4.30-5.70); RED CELL DISTRIBUTION WIDTH 14.4 % (11.5-14.5); WHITE BLOOD COUNT 8.3 x10^3/uL (4.0-11.0)
[2019-03-05 04:46] LABS: ALBUMIN 3.1 g/dL (3.4-5.0); ALBUMIN/GLOBULIN RATIO 0.8 (1.0-1.7); CALCIUM 8.8 mg/dL (8.5-10.1); POTASSIUM 3.6 mmol/L (3.5-5.1); TOTAL BILIRUBIN 0.4 mg/dL (0.2-1.0); TOTAL PROTEIN 6.8 g/dL (6.4-8.2)
[2019-03-05 04:52] LABS: CHOLESTEROL/HDL RATIO 3.5
[2019-03-05] MEDS ORDERED: HEPARIN for IV BOLUS 10,000 UNIT/10 ML VIAL. IV PRN (05:00)
[2019-03-05 08:00] VITALS: BP 201/110
[2019-03-05] MEDS: INSULIN LISPRO 300 UNITS/3 ML INSULN.PEN. SQ SCH ×3 (08:00→17:00)
[2019-03-05] MEDS: amLODIPine BESYLATE 10 MG TABLET PO SCH (08:27)
--- NOTE | 2019-03-05 08:56 | PDOC ---
PROGRESS NOTES History of Present Illness History of Present Illness VTE Prophylaxis Ordered VTE Prophylaxis Devices: Yes VTE Pharmacological Prophylaxi: Yes Assessment/Plan Assessment/Plan Assessment 1. Congestive heart failure, acute on chronic, flash nature of pulmonary edema, . Check 2-D echo to assess LV systolic function. 2. Non-STEMI most probably type II but significant coronary artery disease needs to be ruled out. Telemetry did not show any significant arrhythmias. We will consider cardiac catheterization pending nephrology clearance. If he is deemed high risk from their standpoint, we will plan for stress test. 3. Accelerated hypertension: Start Norvasc 4. Diabetes mellitus type 2: 5. END STAGE RENAL DISEASEnephrology consultation. 6. TOBACCO ABUSE 7. OBESITY BMI 31 8. hypertensive urgency 9. hx noncompliance 10. alcohol binge drinking hx plan renal arterial duplex scan to rule out renal artery stenosis LEONIE cardiac catheterization pending nephrology clearance begin dialysis LEONIE D/W DR PATRICK Check 2-D echo CARDIOLOGY CONSULT NEPHROLOGY CONSULT add catapress 0.2mg po tid hydralazine 20mg iv q 4 hrs prn bp support alcohol withdrawal precautions 43 MIN CC TIME Vitals Vitals Vital Signs Date Time Temp Pulse Resp B/P (MAP) Pulse Ox O2 Delivery O2 Flow Rate FiO2 03/05/19 08:27 102 201/110 03/05/19 08:00 98.4 17 98 Room Air 98.4 03/04/19 08:00 2.0 Physical Exam General: Alert, Oriented X3, Cooperative, mild distress Heart: Regular rate, Normal S1 Lungs: Clear Abdomen: Normal bowel sounds, Soft Extremities: No clubbing, No cyanosis Labs LABS Laboratory Tests Test 03/04/19 10:35 03/04/19 18:35 03/05/19 04:00 Heparin Anti-Xa Act, Unfractionated 0.38 IU/mL (0.30-0.70) 0.34 IU/mL (0.30-0.70) 0.14 IU/mL (0.30-0.70) Troponin I Quantitative 0.172 ng/mL (0.000-0.055) White Blood Count 8.3 x10^3/uL (4.0-11.0) Red Blood Count 3.92 x10^6/uL (4.30-5.70) Hemoglobin 10.4 g/dL (13.0-17.5) Hematocrit 32.7 % (39.0-53.0) Mean Corpuscular Volume 83 fL (79-100) Mean Corpuscular Hemoglobin 27 pg (25-35) Mean Corpuscular Hemoglobin Concent 32 g/dL (31-37) Red Cell Distribution Width 14.4 % (11.5-14.5) Platelet Count 140 x10^3/uL (140-400) Neutrophils (%) (Auto) 71 % (31-73) Lymphocytes (%) (Auto) 17 % (24-48) Monocytes (%) (Auto) 11 % (0-9) Eosinophils (%) (Auto) 1 % (0-3) Basophils (%) (Auto) 0 % (0-3) Neutrophils # (Auto) 5.9 x10^3uL (1.8-7.7) Lymphocytes # (Auto) 1.4 x10^3/uL (1.0-4.8) Monocytes # (Auto) 0.9 x10^3/uL (0.0-1.1) Eosinophils # (Auto) 0.1 x10^3/uL (0.0-0.7) Basophils # (Auto) 0.0 x10^3/uL (0.0-0.2) Sodium Level 143 mmol/L (136-145) Potassium Level 3.6 mmol/L (3.5-5.1) Chloride Level 106 mmol/L (98-107) Carbon Dioxide Level 23 mmol/L (21-32) Anion Gap 14 (6-14) Blood Urea Nitrogen 51 mg/dL (8-26) Creatinine 5.0 mg/dL (0.7-1.3) Estimated GFR (Cockcroft-Gault) 15.0 BUN/Creatinine Ratio 10 (6-20) Glucose Level 116 mg/dL (70-99) Calcium Level 8.8 mg/dL (8.5-10.1) Total Bilirubin 0.4 mg/dL (0.2-1.0) Aspartate Amino Transf (AST/SGOT) 19 U/L (15-37) Alanine Aminotransferase (ALT/SGPT) 22 U/L (16-63) Alkaline Phosphatase 71 U/L (46-116) Total Protein 6.8 g/dL (6.4-8.2) Albumin 3.1 g/dL (3.4-5.0) Albumin/Globulin Ratio 0.8 (1.0-1.7) Triglycerides Level 115 mg/dL (0-150) Cholesterol Level 184 mg/dL (0-200) LDL Cholesterol, Calculated 108 mg/dL (0-100) VLDL Cholesterol, Calculated 23 mg/dL (0-40) Non-HDL Cholesterol Calculated 131 mg/dL (0-129) HDL Cholesterol 53 mg/dL (40-60) Cholesterol/HDL Ratio 3.5 Assessment and Plan Assessmemt and Plan Problems Medical Problems: (1) Elevated serum creatinine Status: Acute (2) Elevated troponin Status: Acute (3) Hypokalemia Status: Acute (4) Shortness of breath Status: Acute Comment Review of Relevant I have reviewed the following items susan (where applicable) has been applied. Labs Laboratory Tests Test 03/04/19 04:25 03/04/19 06:10 03/04/19 07:35 03/04/19 10:35 White Blood Count 8.1 x10^3/uL (4.0-11.0) Red Blood Count 4.25 x10^6/uL (4.30-5.70) Hemoglobin 11.3 g/dL (13.0-17.5) Hematocrit 35.3 % (39.0-53.0) Mean Corpuscular Volume 83 fL (79-100) Mean Corpuscular Hemoglobin 27 pg (25-35) Mean Corpuscular Hemoglobin Concent 32 g/dL (31-37) Red Cell Distribution Width 14.0 % (11.5-14.5) Platelet Count 142 x10^3/uL (140-400) Neutrophils (%) (Auto) 66 % (31-73) Lymphocytes (%) (Auto) 24 % (24-48) Monocytes (%) (Auto) 8 % (0-9) Eosinophils (%) (Auto) 2 % (0-3) Basophils (%) (Auto) 1 % (0-3) Neutrophils # (Auto) 5.3 x10^3uL (1.8-7.7) Lymphocytes # (Auto) 1.9 x10^3/uL (1.0-4.8) Monocytes # (Auto) 0.6 x10^3/uL (0.0-1.1) Eosinophils # (Auto) 0.1 x10^3/uL (0.0-0.7) Basophils # (Auto) 0.1 x10^3/uL (0.0-0.2) Sodium Level 143 mmol/L (136-145) Potassium Level 3.1 mmol/L (3.5-5.1) Chloride Level 105 mmol/L (98-107) Carbon Dioxide Level 23 mmol/L (21-32) Anion Gap 15 (6-14) Blood Urea Nitrogen 53 mg/dL (8-26) Creatinine 5.4 mg/dL (0.7-1.3) Estimated GFR (Cockcroft-Gault) 11.3 BUN/Creatinine Ratio 10 (6-20) Glucose Level 121 mg/dL (70-99) Lactic Acid Level 1.4 mmol/L (0.4-2.0) Calcium Level 8.5 mg/dL (8.5-10.1) Magnesium Level 2.0 mg/dL (1.8-2.4) Total Bilirubin 0.3 mg/dL (0.2-1.0) Aspartate Amino Transf (AST/SGOT) 23 U/L (15-37) Alanine Aminotransferase (ALT/SGPT) 29 U/L (16-63) Alkaline Phosphatase 84 U/L (46-116) Creatine Kinase 490 U/L (39-308) Creatine Kinase MB (Mass) 5.6 ng/mL (0.0-3.6) Creatine Kinase MB Relative Index 1.1 % (0-4) Troponin I Quantitative 0.192 ng/mL (0.000-0.055) 0.175 ng/mL (0.000-0.055) 0.172 ng/mL (0.000-0.055) ES-Wur-P-Type Natriuretic Peptide 6302 pg/mL (0-124) Total Protein 8.2 g/dL (6.4-8.2) Albumin 3.5 g/dL (3.4-5.0) Albumin/Globulin Ratio 0.7 (1.0-1.7) Urine Collection Type Unknown Urine Color Yellow Urine Clarity Clear Urine pH 5.5 Urine Specific [place] 1.010 Urine Protein 100 mg/dL (NEG-TRACE) Urine Glucose (UA) Negative mg/dL (NEG) Urine Ketones (Stick) Negative mg/dL (NEG) Urine Blood Small (NEG) Urine Nitrite Negative (NEG) Urine Bilirubin Negative (NEG) Urine Urobilinogen Dipstick 0.2 mg/dL (0.2 mg/dL) Urine Leukocyte Esterase Negative (NEG) Urine RBC 1-2 /HPF (0-2) Urine WBC Occ /HPF (0-4) Urine Squamous Epithelial Cells Occ /LPF Urine Bacteria 0 /HPF (0-FEW) Urine Hyaline Casts Occasional /HPF Urine Opiates Screen Neg (NEG) Urine Methadone Screen Neg (NEG) Urine Barbiturates Neg (NEG) Urine Phencyclidine Screen Neg (NEG) Urine Amphetamine/Methamphetamine Neg (NEG) Urine Benzodiazepines Screen Neg (NEG) Urine Cocaine Screen Neg (NEG) Urine Cannabinoids Screen Neg (NEG) Urine Ethyl Alcohol Pos (NEG) Heparin Anti-Xa Act, Unfractionated 0.38 IU/mL (0.30-0.70) Test 03/04/19 18:35 03/05/19 04:00 Heparin Anti-Xa Act, Unfractionated 0.34 IU/mL (0.30-0.70) 0.14 IU/mL (0.30-0.70) White Blood Count 8.3 x10^3/uL (4.0-11.0) Red Blood Count 3.92 x10^6/uL (4.30-5.70) Hemoglobin 10.4 g/dL (13.0-17.5) Hematocrit 32.7 % (39.0-53.0) Mean Corpuscular Volume 83 fL (79-100) Mean Corpuscular Hemoglobin 27 pg (25-35) Mean Corpuscular Hemoglobin Concent 32 g/dL (31-37) Red Cell Distribution Width 14.4 % (11.5-14.5) Platelet Count 140 x10^3/uL (140-400) Neutrophils (%) (Auto) 71 % (31-73) Lymphocytes (%) (Auto) 17 % (24-48) Monocytes (%) (Auto) 11 % (0-9) Eosinophils (%) (Auto) 1 % (0-3) Basophils (%) (Auto) 0 % (0-3) Neutrophils # (Auto) 5.9 x10^3uL (1.8-7.7) Lymphocytes # (Auto) 1.4 x10^3/uL (1.0-4.8) Monocytes # (Auto) 0.9 x10^3/uL (0.0-1.1) Eosinophils # (Auto) 0.1 x10^3/uL (0.0-0.7) Basophils # (Auto) 0.0 x10^3/uL (0.0-0.2) Sodium Level 143 mmol/L (136-145) Potassium Level 3.6 mmol/L (3.5-5.1) Chloride Level 106 mmol/L (98-107) Carbon Dioxide Level 23 mmol/L (21-32) Anion Gap 14 (6-14) Blood Urea Nitrogen 51 mg/dL (8-26) Creatinine 5.0 mg/dL (0.7-1.3) Estimated GFR (Cockcroft-Gault) 15.0 BUN/Creatinine Ratio 10 (6-20) Glucose Level 116 mg/dL (70-99) Calcium Level 8.8 mg/dL (8.5-10.1) Total Bilirubin 0.4 mg/dL (0.2-1.0) Aspartate Amino Transf (AST/SGOT) 19 U/L (15-37) Alanine Aminotransferase (ALT/SGPT) 22 U/L (16-63) Alkaline Phosphatase 71 U/L (46-116) Total Protein 6.8 g/dL (6.4-8.2) Albumin 3.1 g/dL (3.4-5.0) Albumin/Globulin Ratio 0.8 (1.0-1.7) Triglycerides Level 115 mg/dL (0-150) Cholesterol Level 184 mg/dL (0-200) LDL Cholesterol, Calculated 108 mg/dL (0-100) VLDL Cholesterol, Calculated 23 mg/dL (0-40) Non-HDL Cholesterol Calculated 131 mg/dL (0-129) HDL Cholesterol 53 mg/dL (40-60) Cholesterol/HDL Ratio 3.5 Laboratory Tests Test 03/04/19 10:35 03/04/19 18:35 03/05/19 04:00 Heparin Anti-Xa Act, Unfractionated 0.38 IU/mL (0.30-0.70) 0.34 IU/mL (0.30-0.70) 0.14 IU/mL (0.30-0.70) Troponin I Quantitative 0.172 ng/mL (0.000-0.055) White Blood Count 8.3 x10^3/uL (4.0-11.0) Red Blood Count 3.92 x10^6/uL (4.30-5.70) Hemoglobin 10.4 g/dL (13.0-17.5) Hematocrit 32.7 % (39.0-53.0) Mean Corpuscular Volume 83 fL (79-100) Mean Corpuscular Hemoglobin 27 pg (25-35) Mean Corpuscular Hemoglobin Concent 32 g/dL (31-37) Red Cell Distribution Width 14.4 % (11.5-14.5) Platelet Count 140 x10^3/uL (140-400) Neutrophils (%) (Auto) 71 % (31-73) Lymphocytes (%) (Auto) 17 % (24-48) Monocytes (%) (Auto) 11 % (0-9) Eosinophils (%) (Auto) 1 % (0-3) Basophils (%) (Auto) 0 % (0-3) Neutrophils # (Auto) 5.9 x10^3uL (1.8-7.7) Lymphocytes # (Auto) 1.4 x10^3/uL (1.0-4.8) Monocytes # (Auto) 0.9 x10^3/uL (0.0-1.1) Eosinophils # (Auto) 0.1 x10^3/uL (0.0-0.7) Basophils # (Auto) 0.0 x10^3/uL (0.0-0.2) Sodium Level 143 mmol/L (136-145) Potassium Level 3.6 mmol/L (3.5-5.1) Chloride Level 106 mmol/L (98-107) Carbon Dioxide Level 23 mmol/L (21-32) Anion Gap 14 (6-14) Blood Urea Nitrogen 51 mg/dL (8-26) Creatinine 5.0 mg/dL (0.7-1.3) Estimated GFR (Cockcroft-Gault) 15.0 BUN/Creatinine Ratio 10 (6-20) Glucose Level 116 mg/dL (70-99) Calcium Level 8.8 mg/dL (8.5-10.1) Total Bilirubin 0.4 mg/dL (0.2-1.0) Aspartate Amino Transf (AST/SGOT) 19 U/L (15-37) Alanine Aminotransferase (ALT/SGPT) 22 U/L (16-63) Alkaline Phosphatase 71 U/L (46-116) Total Protein 6.8 g/dL (6.4-8.2) Albumin 3.1 g/dL (3.4-5.0) Albumin/Globulin Ratio 0.8 (1.0-1.7) Triglycerides Level 115 mg/dL (0-150) Cholesterol Level 184 mg/dL (0-200) LDL Cholesterol, Calculated 108 mg/dL (0-100) VLDL Cholesterol, Calculated 23 mg/dL (0-40) Non-HDL Cholesterol Calculated 131 mg/dL (0-129) HDL Cholesterol 53 mg/dL (40-60) Cholesterol/HDL Ratio 3.5 Microbiology 03/04/19 Blood Culture - Preliminary, Resulted NO GROWTH AFTER 1 DAY Medications Current Medications Albuterol/ Ipratropium (Duoneb) 3 ml 1X ONCE NEB Last administered on 03/04/19at 04:20; Start 03/04/19 at 04:15; Stop 03/04/19 at 04:26; Status DC Nitroglycerin (Nitro-Bid Oint) 1 inch 1X ONCE TP Last administered on 03/04at 04:31; Start 03/04/19 at 04:30; Stop 03/04/19 at 04:31; Status DC Aspirin (Karime Aspirin) 325 mg 1X ONCE PO Last administered on 03/04/19at 04:30; Start 03/04/19 at 04:30; Stop 03/04/19 at 04:31; Status DC Labetalol HCl (Normodyne Iv Push) 10 mg 1X ONCE IVP Last administered on 03/04/19at 05:40; Start 03/04/19 at 05:00; Stop 03/04/19 at 05:01; Status DC Ondansetron HCl (Zofran) 4 mg PRN Q8HRS PRN IV NAUSEA/VOMITING; Start 03/04/19 at 05:00; Stop 03/05/19 at 04:59; Status DC Fentanyl Citrate (Fentanyl 2ml Vial) 50 mcg PRN Q2HR PRN IV PAIN Last administered on 03/04/19at 09:41; Start 03/04/19 at 05:00 Albuterol/ Ipratropium (Duoneb) 3 ml RTQID NEB Last administered on 03/04/19at 07:57; Start 03/04/19 at 08:00; Stop 03/04/19 at 12:15; Status DC Insulin Human Lispro (HumaLOG) 0-5 UNITS TIDWMEALS SQ ; Start 03/04/19 at 08:00 Dextrose (Dextrose 50%-Water Syringe) 12.5 gm PRN Q15MIN PRN IV SEE COMMENTS; Start 03/04/19 at 05:00 Hydralazine HCl (Apresoline Inj) 20 mg 1X ONCE IVP Last administered on at 06:09; Start 03/04/19 at 05:15; Stop 03/04/19 at 05:16; Status DC Heparin Sodium (Porcine) (Heparin Sodium) 4,000 unit 1X ONCE IV Last administered on 03/04/19at 05:24; Start 03/04/19 at 05:15; Stop 03/04/19 at 05:16; Status DC Heparin Sodium/ Dextrose 500 ml @ 0 mls/hr CONT PRN IV SEE I/O RECORD Last administered on 03/05/19at 01:06; Start 03/04/19 at 05:15 Potassium Chloride (Klor-Con) 20 meq 1X ONCE PO Last administered on 03/04/19at 05:25; Start 03/04/19 at 05:15; Stop 03/04/19 at 05:16; Status DC Bumetanide (Bumex) 1 mg 1X ONCE IV Last administered on 03/04/19at 05:23; Start 03/04/19 at 05:15; Stop 03/04/19 at 05:16; Status DC Amlodipine Besylate (Norvasc) 10 mg DAILY PO Last administered on 03/05/19at 08:27; Start 03/04/19 at 11:30 Hydralazine HCl (Apresoline Inj) 10 mg PRN Q6HRS PRN IVP ELEVATED BP Last administered on 03/04/19at 17:24; Start 03/04/19 at 11:30; Stop 03/04/19 at 18:28; Status DC Info (Anti-Coagulation Monitoring By Pharmacy) 1 each PRN DAILY PRN MC SEE COMMENTS; Start 03/04/19 at 12:30 Hydralazine HCl (Apresoline Inj) 20 mg PRN Q4HRS PRN IVP ELEVATED BP Last administered on 03/05/19at 08:27; Start 03/04/19 at 18:30 Heparin Sodium (Porcine) (Heparin Sodium) 2,650 unit PRN Q6HRS PRN IV FOR UFH LEVEL LESS THAN 0.2 Last administered on 03/05/19at 05:07; Start 03/05/19 at 05:00 Vitals/I & O Vital Sign - Last 24 Hours 03/04/19 03/04/19 03/04/19 03/04/19 09:00 09:41 10:11 11:35 Pulse 92 88 Resp 14 16 14 B/P (MAP) 184/113 Pulse Ox 95 O2 Delivery Room Air Room Air Nasal Cannula 03/04/19 03/04/19 03/04/19 03/04/19 11:36 12:00 16:00 17:24 Temp 98.7 98.5 98.7 98.5 Pulse 86 98 99 94 Resp 14 20 B/P (MAP) 184/113 165/105 (125) 177/105 (129) 183/107 O2 Delivery Room Air Room Air 03/04/19 03/04/19 03/04/19 03/04/19 19:00 20:00 21:00 21:36 Temp 98.1 98.1 Pulse 98 102 108 105 Resp 18 19 B/P (MAP) 167/93 (117) 192/113 (139) 214/103 (140) 234/96 Pulse Ox 99 98 98 O2 Delivery Room Air Room Air Room Air 03/04/19 03/04/19 03/05/19 03/05/19 22:00 23:53 03:17 03:20 Temp 98.3 98.3 Pulse 108 108 104 104 Resp 22 20 16 B/P (MAP) 221/92 (135) 168/97 (120) 184/96 (125) 184/96 Pulse Ox 97 99 98 O2 Delivery Room Air Room Air Room Air 03/05/19 03/05/19 03/05/19 08:00 08:27 08:27 Temp 98.4 98.4 Pulse 102 102 102 Resp 17 B/P (MAP) 201/110 (140) 201/110 201/110 Pulse Ox 98 O2 Delivery Room Air Intake and Output 03/04/19 03/04/19 03/05/19 14:59 22:59 06:59 Intake Total 600 ml 600 ml 973 ml Output Total 500 ml Balance 100 ml 600 ml 973 ml VINCENT BRADFORD MD March 05, 2019 08:56
--- NOTE | 2019-03-05 09:01 | PDOC ---
PROGRESS NOTES Subjective Subjective Denied any chest pain. Dyspnea improved. Objective Objective Vital Signs Date Time Temp Pulse Resp B/P (MAP) Pulse Ox O2 Delivery O2 Flow Rate FiO2 03/05/19 08:27 102 201/110 03/05/19 08:00 98.4 17 98 Room Air 98.4 03/04/19 08:00 2.0 Intake and Output 03/05/19 06:59 Intake Total 2173 ml Output Total 500 ml Balance 1673 ml Intake Oral 1600 ml IV Total 573 ml Output Urine Total 500 ml # Voids 6 Physical Exam Abdomen: Normal bowel sounds, Soft Heart: Regular rate Extremities: No cyanosis General: Alert, Oriented X3, Cooperative, mild distress HEENT: Atraumatic, EOMI, Mucous membr. moist/pink Lungs: Clear to auscultation Neuro: Normal speech, Cranial nerves 3-12 NL Psych/Mental Status: Mental status NL, Mood NL Assessment Assessment 1. Congestive heart failure, most probably acute on chronic, sudden onset. Presently better compensated. Renal arterial duplex scan to rule out renal artery stenosis and 2-D echo to assess LV systolic function are pending. 2. Non-STEMI most probably type II but significant coronary artery disease needs to be ruled out. Telemetry did not show any significant arrhythmias. Plan for cardiac catheterization and possible angioplasty tomorrow. 3. Accelerated hypertension: Blood pressure continues to be elevated. Start labetalol for better control. 4. Diabetes mellitus type 2: Treat per IM 5. Renal insufficiency, most probably acute on chronic. Nephrology team planning initiation of hemodialysis tomorrow. Plan Plan of Care Problems Medical Problems: (1) Elevated serum creatinine Status: Acute (2) Elevated troponin Status: Acute (3) Hypokalemia Status: Acute (4) Shortness of breath Status: Acute Comment Review of Relevant I have reviewed the following items susan (where applicable) has been applied. Labs Laboratory Tests Test 03/04/19 10:35 03/04/19 18:35 03/05/19 04:00 Heparin Anti-Xa Act, Unfractionated 0.38 IU/mL (0.30-0.70) 0.34 IU/mL (0.30-0.70) 0.14 IU/mL (0.30-0.70) Troponin I Quantitative 0.172 ng/mL (0.000-0.055) White Blood Count 8.3 x10^3/uL (4.0-11.0) Red Blood Count 3.92 x10^6/uL (4.30-5.70) Hemoglobin 10.4 g/dL (13.0-17.5) Hematocrit 32.7 % (39.0-53.0) Mean Corpuscular Volume 83 fL (79-100) Mean Corpuscular Hemoglobin 27 pg (25-35) Mean Corpuscular Hemoglobin Concent 32 g/dL (31-37) Red Cell Distribution Width 14.4 % (11.5-14.5) Platelet Count 140 x10^3/uL (140-400) Neutrophils (%) (Auto) 71 % (31-73) Lymphocytes (%) (Auto) 17 % (24-48) Monocytes (%) (Auto) 11 % (0-9) Eosinophils (%) (Auto) 1 % (0-3) Basophils (%) (Auto) 0 % (0-3) Neutrophils # (Auto) 5.9 x10^3uL (1.8-7.7) Lymphocytes # (Auto) 1.4 x10^3/uL (1.0-4.8) Monocytes # (Auto) 0.9 x10^3/uL (0.0-1.1) Eosinophils # (Auto) 0.1 x10^3/uL (0.0-0.7) Basophils # (Auto) 0.0 x10^3/uL (0.0-0.2) Sodium Level 143 mmol/L (136-145) Potassium Level 3.6 mmol/L (3.5-5.1) Chloride Level 106 mmol/L (98-107) Carbon Dioxide Level 23 mmol/L (21-32) Anion Gap 14 (6-14) Blood Urea Nitrogen 51 mg/dL (8-26) Creatinine 5.0 mg/dL (0.7-1.3) Estimated GFR (Cockcroft-Gault) 15.0 BUN/Creatinine Ratio 10 (6-20) Glucose Level 116 mg/dL (70-99) Calcium Level 8.8 mg/dL (8.5-10.1) Total Bilirubin 0.4 mg/dL (0.2-1.0) Aspartate Amino Transf (AST/SGOT) 19 U/L (15-37) Alanine Aminotransferase (ALT/SGPT) 22 U/L (16-63) Alkaline Phosphatase 71 U/L (46-116) Total Protein 6.8 g/dL (6.4-8.2) Albumin 3.1 g/dL (3.4-5.0) Albumin/Globulin Ratio 0.8 (1.0-1.7) Triglycerides Level 115 mg/dL (0-150) Cholesterol Level 184 mg/dL (0-200) LDL Cholesterol, Calculated 108 mg/dL (0-100) VLDL Cholesterol, Calculated 23 mg/dL (0-40) Non-HDL Cholesterol Calculated 131 mg/dL (0-129) HDL Cholesterol 53 mg/dL (40-60) Cholesterol/HDL Ratio 3.5 Microbiology 03/04/19 Blood Culture - Preliminary, Resulted NO GROWTH AFTER 1 DAY Medications Current Medications Amlodipine Besylate (Norvasc) 10 mg DAILY PO Last administered on 03/05/19at 08:27; Start 03/04/19 at 11:30 Clonidine HCl (Catapres) 0.2 mg Q8HRS PO ; Start 03/05/19 at 14:00 Heparin Sodium (Porcine) (Heparin Sodium) 2,650 unit PRN Q6HRS PRN IV FOR UFH LEVEL LESS THAN 0.2 Last administered on 03/05/19at 05:07; Start 03/05/19 at 05:00 Hydralazine HCl (Apresoline Inj) 10 mg PRN Q6HRS PRN IVP ELEVATED BP Last administered on 03/04/19at 17:24; Start 03/04/19 at 11:30; Stop 03/04/19 at 18:28; Status DC Hydralazine HCl (Apresoline Inj) 20 mg PRN Q4HRS PRN IVP ELEVATED BP Last administered on 03/05/19at 08:27; Start 03/04/19 at 18:30 Info (Anti-Coagulation Monitoring By Pharmacy) 1 each PRN DAILY PRN [facility] SEE COMMENTS; Start 03/04/19 at 12:30 Vitals/I & O Vital Sign - Last 24 Hours 03/04/19 03/04/19 03/04/19 03/04/19 09:41 10:11 11:35 11:36 Pulse 88 86 Resp 16 14 B/P (MAP) 184/113 184/113 Pulse Ox 95 O2 Delivery Room Air Nasal Cannula 03/04/19 03/04/19 03/04/19 03/04/19 12:00 16:00 17:24 19:00 Temp 98.7 98.5 98.1 98.7 98.5 98.1 Pulse 98 99 94 98 Resp 18 B/P (MAP) 165/105 (125) 177/105 (129) 183/107 167/93 (117) Pulse Ox 99 O2 Delivery Room Air Room Air Room Air 03/04/19 03/04/19 03/04/19 03/04/19 20:00 21:00 21:36 22:00 Pulse 102 108 105 108 Resp B/P (MAP) 192/113 (139) 214/103 (140) 234/96 221/92 (135) Pulse Ox 98 98 97 O2 Delivery Room Air Room Air Room Air 03/04/19 03/05/19 03/05/19 03/05/19 23:53 03:17 03:20 08:00 Temp 98.3 98.4 98.3 98.4 Pulse 108 104 104 102 Resp 17 B/P (MAP) 168/97 (120) 184/96 (125) 184/96 201/110 (140) Pulse Ox 99 98 98 O2 Delivery Room Air Room Air Room Air 03/05/19 03/05/19 08:27 08:27 Pulse 102 102 B/P (MAP) 201/110 201/110 Intake and Output 03/04/19 03/04/19 03/05/19 14:59 22:59 06:59 Intake Total 600 ml 600 ml 973 ml Output Total 500 ml Balance 100 ml 600 ml 973 ml ENA NORRIS MD March 05, 2019 09:01
--- NOTE | 2019-03-05 09:26 | NUR ---
pt again refused fingerstick. insulin nonadmin
[2019-03-05] MEDS ORDERED: LORazepam 1 MG TABLET PO PRN (11:00)
[2019-03-05 12:00] VITALS: BP 204/108
[2019-03-05] MEDS: LABETALOL HCL 200 MG TABLET PO SCH ×2 (12:07→21:08)
[2019-03-05] MEDS: cloNIDine HCL 0.2 MG TABLET PO SCH ×2 (13:05→22:19)
[2019-03-05 16:02] VITALS: BP 139/77
[2019-03-05 19:00] VITALS: BP 137/84
[2019-03-05 22:35] VITALS: BP 129/83
[2019-03-06] VITALS (13 sets, daily range): BP systolic 110–156; BP diastolic 55–104
[2019-03-06 05:30] LABS: BASO # 0.1 x10^3/uL (0.0-0.2); BASO % 1 % (0-3); EOS # 0.1 x10^3/uL (0.0-0.7); EOS % 2 % (0-3); HEMOGLOBIN 9.5 g/dL (13.0-17.5); LYMPH # 1.7 x10^3/uL (1.0-4.8); LYMPH % 28 % (24-48); MEAN CORPUSCULAR HEMOGLOBIN 27 pg (25-35); MEAN CORPUSCULAR HGB CONC 32 g/dL (31-37); MEAN CORPUSCULAR VOLUME 84 fL (79-100); MONO # 0.8 x10^3/uL (0.0-1.1); MONO % 13 % (0-9); NEUT # 3.4 x10^3uL (1.8-7.7); NEUT % 56 % (31-73); PLATELET COUNT 117 x10^3/uL (140-400); RED BLOOD COUNT 3.57 x10^6/uL (4.30-5.70); RED CELL DISTRIBUTION WIDTH 14.4 % (11.5-14.5); WHITE BLOOD COUNT 6.1 x10^3/uL (4.0-11.0)
[2019-03-06] MEDS: cloNIDine HCL 0.2 MG TABLET PO SCH ×3 (05:30→22:10)
[2019-03-06 05:44] LABS: ALBUMIN 2.7 g/dL (3.4-5.0); ALBUMIN/GLOBULIN RATIO 0.8 (1.0-1.7); CALCIUM 8.6 mg/dL (8.5-10.1); CREATININE 5.4 mg/dL (0.7-1.3); GFR 13.7; POTASSIUM 3.6 mmol/L (3.5-5.1); TOTAL BILIRUBIN 0.3 mg/dL (0.2-1.0); TOTAL PROTEIN 6.3 g/dL (6.4-8.2)
[2019-03-06] MEDS ORDERED: IOHEXOL 300 MG/ML 100ML VIAL. ONE (07:46)
[2019-03-06] MEDS ORDERED: LIDOCAINE 1% PF 2 ML VIAL. ONE (07:46)
[2019-03-06] MEDS: INSULIN LISPRO 300 UNITS/3 ML INSULN.PEN. SQ SCH ×3 (08:00→17:00)
[2019-03-06] MEDS ORDERED: LIDOCAINE WITH 8.4% SOD BICARB 3 ML DISP.SYRIN. INJ ONE (08:15)
--- NOTE | 2019-03-06 08:21 | CARD ---
MR#: [id number] Date of Study: 03/05/2019 Ordering Physician: ENA PEREZ, Referring Physician: DANIA ZELAYA Tech: Ester Ndiaye RDCS APPROVED REPORT EXAM: Two-dimensional and M-mode echocardiogram with Doppler and color Doppler. Other Information Quality : GoodHR: 99bpm Rhythm : NSR INDICATION Congestive Heart Failure 2D DIMENSIONS Left Atrium(2D)6.4 (1.6-4.0cm)IVSd1.8 (0.7-1.1cm) Aortic Root(2D)2.5 (2.0-3.7cm)LVDd6.0 (3.9-5.9cm) LVOT Diameter2.5 (1.8-2.4cm)PWd1.8 (0.7-1.1cm) LVDs3.8 (2.5-4.0cm)FS (%) 37.0 % SV120.5 mlLVEF(%)66.0 (>50%) Aortic Valve AoV Peak Roni.196.0cm/sAoV VTI32.7cm AO Peak GR.15.4mmHgLVOT Peak Roni.169.2cm/s AO Mean GR.10mmHgAVA (VMAX)4.20cm2 Mitral Valve MV E Ibcpmobd578.2cm/sMV DECEL SQCS480vw MV A Deddxolz49.0cm/sE/A Ratio1.5 MV A [id number] TDI Lateral E' P. V5.00cm/sMedial E' P. V5.00cm/s E/Lateral E'23.0E/Medial E'23.0 Pulmonary Valve PV Peak Tnyttysh000.6cm/s Tricuspid Valve TR P. Vhvesmap443lr/sRAP [id number] TR Peak Gr.54uwBmJQEG04evZn Pulmonary Vein S1 Dziozbej52.1cm/sD2 Aczyczvq34.2cm/s LEFT VENTRICLE The Left Ventricle is moderately dilated. There is moderate to severe concentric left ventricular hyp ertrophy. The left ventricular systolic function is normal. The ejection fraction is estimated at 65- 70%. There is normal LV segmental wall motion. Transmitral Doppler flow pattern is Grade II-pseudonor mal filling dynamics. No left ventricle thrombus noted on this study. There is no ventricular septal defect visualized. There is no left ventricular aneurysm. There is no mass noted in the left ventricl e. RIGHT VENTRICLE The right ventricle is normal size. There is normal right ventricular wall thickness. The right ventr icular systolic function is normal. ATRIA The left atrium is severely dilated. The right atrium size is normal. The interatrial septum is intac t with no evidence for an atrial septal defect or patent foramen ovale as noted on 2-D or Doppler [place] ging. AORTIC VALVE The aortic valve is normal in structure and function. Doppler and Color Flow revealed no significant aortic regurgitation. There is no significant aortic valvular stenosis. There is no aortic valvular v egetation. MITRAL VALVE The mitral valve is normal in structure and function. There is no evidence of mitral valve prolapse. There is no mitral valve stenosis. Doppler and Color Flow revealed mild mitral regurgitation. TRICUSPID VALVE The tricuspid valve is normal in structure and function. Doppler and Color Flow revealed mild tricusp id regurgitation. There is no tricuspid valve prolapse or vegetation. There is no tricuspid valve [place] nosis. PULMONIC VALVE The pulmonary valve is normal in structure and function. Doppler and Color Flow revealed no pulmonic valvular regurgitation. There is no pulmonic valvular stenosis. GREAT VESSELS The aortic root is normal in size. The ascending aorta is normal in size. The IVC is normal in size a nd collapses >50% with inspiration. PERICARDIAL EFFUSION There is no pleural effusion. There is no evidence of significant pericardial effusion. Critical Notification Critical Value: No <Conclusion> The left ventricular systolic function is normal. The ejection fraction is estimated at 65-70%. There is normal LV segmental wall motion. There is moderate to severe concentric left ventricular hypertrophy. The left atrium is severely dilated. Moderate left ventricular diastolic dysfunction. Mild mitral regurgitation. Mild tricuspid regurgitation. There is no evidence of significant pericardial effusion. Signed by : Ena Perez, Electronically Approved : 03/06/2019 08:21:04
[2019-03-06] MEDS: HEPARIN 25,000UTS/500ML PREMIX 500 ML IV PRN (08:23)
--- NOTE | 2019-03-06 09:29 | RAD ---
Portable chest, 03/06/2019: HISTORY: Check catheter placement Comparison is made to a study from 03/04/2019. A right jugular dialysis type catheter has been inserted extending into the superior aspect the right atrium. The heart is enlarged with prominence of the left ventricle. There is tortuosity of the thoracic aorta. The pulmonary vascularity is within normal limits. No pulmonary infiltrate is seen. There is no evidence of pleural fluid or pneumothorax. IMPRESSION: 1. A right jugular dialysis type catheter extends into the superior aspect of the right atrium. 2. Cardiomegaly. 3. No acute abnormality Electronically signed by: Twin Richardson MD (03/06/2019 9:26 AM) [facility]
--- NOTE | 2019-03-06 09:49 | PDOC ---
PROGRESS NOTES History of Present Illness History of Present Illness VTE Prophylaxis Ordered VTE Prophylaxis Devices: Yes VTE Pharmacological Prophylaxi: Yes Assessment/Plan Assessment/Plan Assessment 1. Congestive heart failure, acute on chronic, flash nature of pulmonary edema, . Check 2-D echo to assess LV systolic function. 2. Non-STEMI most probably type II but significant coronary artery disease needs to be ruled out. Telemetry did not show any significant arrhythmias. We will consider cardiac catheterization pending nephrology clearance. If he is deemed high risk from their standpoint, we will plan for stress test. 3. Accelerated hypertension: Start Norvasc 4. Diabetes mellitus type 2: 5. END STAGE RENAL DISEASEnephrology consultation. 6. TOBACCO ABUSE 7. OBESITY BMI 31 8. hypertensive urgency 9. hx noncompliance 10. alcohol binge drinking hx 11. Successful ultrasound-guided placement of right internal jugular temporary dialysis catheter 03/06 plan renal arterial duplex scan to rule out renal artery stenosis LEONIE cardiac catheterization 03/06 NO CRITICAL STENOSIS begin dialysis LEONIE D/W DR PATRICK Check 2-D echo CARDIOLOGY CONSULT NEPHROLOGY CONSULT add catapress 0.2mg po tid hydralazine 20mg iv q 4 hrs prn bp support alcohol withdrawal precautions 36 MIN CC TIME Vitals Vitals Vital Signs Date Time Temp Pulse Resp B/P (MAP) Pulse Ox O2 Delivery O2 Flow Rate FiO2 03/06/19 07:30 97.7 80 16 140/88 (105) 97 Room Air 97.7 Physical Exam General: Alert, Oriented X3, Cooperative, No acute distress, mild distress Heart: Regular rate, Normal S1 Lungs: Clear Abdomen: Normal bowel sounds, Soft, No tenderness Extremities: No clubbing, No cyanosis Labs LABS Procedure: Ultrasound-guided placement of right internal jugular temporary dialysis catheter 03/06/2019 10:29 AM Clinical Indication: Acute renal failure Discussion: The risks and benefits of the procedure were discussed the patient and/or their outside dealer sales representative. Informed consent was obtained. A timeout procedure was performed. All elements of maximal sterile barrier technique including the use of a cap, mask, sterile gown, sterile gloves, large sterile sheet, appropriate hand hygiene, and 2% chlorhexidine for cutaneous antisepsis (or acceptable alternative antiseptic per current guidelines) were followed for this procedure. The patient was prepped and draped in the usual sterile fashion. Ultrasound interrogation of the right neck revealed patency and compressibility of the right internal jugular vein. A 21-gauge micropuncture was then used to gain access to this vein under ultrasound guidance. A hard copy ultrasound image was recorded. A guidewire was advanced centrally. 5 [place] sheath was placed. Over a wire following dilatation, a dual-lumen temporary dialysis catheter was advanced centrally. Catheter was found to flush and aspirate normally. Follow-up chest radiograph demonstrates tip at the cavoatrial junction. Catheter secured in place and a sterile dressing was applied. No immediate complications were identified. Impression: Successful ultrasound-guided placement of right internal jugular temporary dialysis catheter DICTATED and SIGNED BY: KE RIOJAS MD Procedures Left heart catheterization Selective coronary angiogram Aortic root injection The patient is a 48-year-old male who was admitted with episodes of chest pain and shortness of breath, renal failure and a mildly elevated troponin. Echocardiogram showed normal LV systolic function. Secondary to the patient's elevated troponin and chest pain a cardiac catheterization was recommended. Risks and benefits were discussed with the patient. He did request anesthesiology assistance secondary to severe anxiety. He agreed to proceed with cardiac catheterization with anesthesiology assistance. After informed consent was obtained the patient was prepared the usual manner with Betadine, sterile draping and local anesthetic. The anesthesiology service was present and administered sedation as required. An 18-gauge needle was used to enter the right femoral artery, a wire placed and a 6 [place] sheath placed over the wire. With all exchanges over a J-wire, a 6 [place] JL4 diagnostic catheter was advanced to the ascending aorta. It proved to be too small to cleanly engage the left main and was replaced with a JL 5. Sequential injections in various views were obtained. A 6 [place] Fletcher right diagnostic catheter was used to engage the right coronary artery system and sequential injections in various views were obtained. A pigtail catheter was advanced to the ascending aorta and then the left ventricle. Pressures were obtained. Pullback pressures were measured. A 30 GREEK aortic root injection was performed. The catheter was removed from the patient. Injection the sheath showed normal placement. The sheath was removed and sealed with an Angio-Seal product. The patient was moved to the holding area in stable condition. Findings. Hemodynamics. LV pressure of 110/14, 26. Aortic root pressure of 108/78. Coronaries. Left main. The left main was a very large vessel with no lesions. Left anterior descending. The LAD was a large vessel with normal distribution. It had no lesions. Left circumflex. The left circumflex is a moderately large vessel. It had no lesions. Right coronary artery. The right coronary was a large dominant vessel. It had no lesions. Aortic root injection. The aortic root showed a mildly dilated aortic root with trace insufficiency. <Conclusion> Large coronary arteries with no angiographic evidence of coronary artery disease. Elevated LVEDP. Mildly dilated aortic root. Laboratory Tests Test 03/05/19 11:15 03/05/19 17:05 03/06/19 04:30 03/06/19 04:36 Heparin Anti-Xa Act, Unfractionated 0.54 IU/mL (0.30-0.70) 0.54 IU/mL (0.30-0.70) 0.56 IU/mL (0.30-0.70) White Blood Count 6.1 x10^3/uL (4.0-11.0) Red Blood Count 3.57 x10^6/uL (4.30-5.70) Hemoglobin 9.5 g/dL (13.0-17.5) Hematocrit 30.0 % (39.0-53.0) Mean Corpuscular Volume 84 fL (79-100) Mean Corpuscular Hemoglobin 27 pg (25-35) Mean Corpuscular Hemoglobin Concent 32 g/dL (31-37) Red Cell Distribution Width 14.4 % (11.5-14.5) Platelet Count 117 x10^3/uL (140-400) Neutrophils (%) (Auto) 56 % (31-73) Lymphocytes (%) (Auto) 28 % (24-48) Monocytes (%) (Auto) 13 % (0-9) Eosinophils (%) (Auto) 2 % (0-3) Basophils (%) (Auto) 1 % (0-3) Neutrophils # (Auto) 3.4 x10^3uL (1.8-7.7) Lymphocytes # (Auto) 1.7 x10^3/uL (1.0-4.8) Monocytes # (Auto) 0.8 x10^3/uL (0.0-1.1) Eosinophils # (Auto) 0.1 x10^3/uL (0.0-0.7) Basophils # (Auto) 0.1 x10^3/uL (0.0-0.2) Sodium Level 141 mmol/L (136-145) Potassium Level 3.6 mmol/L (3.5-5.1) Chloride Level 106 mmol/L (98-107) Carbon Dioxide Level 24 mmol/L (21-32) Anion Gap 11 (6-14) Blood Urea Nitrogen 48 mg/dL (8-26) Creatinine 5.4 mg/dL (0.7-1.3) Estimated GFR (Cockcroft-Gault) 13.7 BUN/Creatinine Ratio 9 (6-20) Glucose Level 111 mg/dL (70-99) Calcium Level 8.6 mg/dL (8.5-10.1) Total Bilirubin 0.3 mg/dL (0.2-1.0) Aspartate Amino Transf (AST/SGOT) 15 U/L (15-37) Alanine Aminotransferase (ALT/SGPT) 19 U/L (16-63) Alkaline Phosphatase 59 U/L (46-116) Total Protein 6.3 g/dL (6.4-8.2) Albumin 2.7 g/dL (3.4-5.0) Albumin/Globulin Ratio 0.8 (1.0-1.7) Test 03/06/19 09:07 Glucose (Fingerstick) 120 mg/dL (70-99) Assessment and Plan Assessmemt and Plan Problems Medical Problems: (1) Elevated serum creatinine Status: Acute (2) Elevated troponin Status: Acute (3) Hypokalemia Status: Acute (4) Shortness of breath Status: Acute Comment Review of Relevant I have reviewed the following items susan (where applicable) has been applied. Labs Laboratory Tests Test 03/04/19 10:35 03/04/19 18:35 03/05/19 04:00 03/05/19 11:15 Heparin Anti-Xa Act, Unfractionated 0.38 IU/mL (0.30-0.70) 0.34 IU/mL (0.30-0.70) 0.14 IU/mL (0.30-0.70) 0.54 IU/mL (0.30-0.70) Troponin I Quantitative 0.172 ng/mL (0.000-0.055) White Blood Count 8.3 x10^3/uL (4.0-11.0) Red Blood Count 3.92 x10^6/uL (4.30-5.70) Hemoglobin 10.4 g/dL (13.0-17.5) Hematocrit 32.7 % (39.0-53.0) Mean Corpuscular Volume 83 fL (79-100) Mean Corpuscular Hemoglobin 27 pg (25-35) Mean Corpuscular Hemoglobin Concent 32 g/dL (31-37) Red Cell Distribution Width 14.4 % (11.5-14.5) Platelet Count 140 x10^3/uL (140-400) Neutrophils (%) (Auto) 71 % (31-73) Lymphocytes (%) (Auto) 17 % (24-48) Monocytes (%) (Auto) 11 % (0-9) Eosinophils (%) (Auto) 1 % (0-3) Basophils (%) (Auto) 0 % (0-3) Neutrophils # (Auto) 5.9 x10^3uL (1.8-7.7) Lymphocytes # (Auto) 1.4 x10^3/uL (1.0-4.8) Monocytes # (Auto) 0.9 x10^3/uL (0.0-1.1) Eosinophils # (Auto) 0.1 x10^3/uL (0.0-0.7) Basophils # (Auto) 0.0 x10^3/uL (0.0-0.2) Sodium Level 143 mmol/L (136-145) Potassium Level 3.6 mmol/L (3.5-5.1) Chloride Level 106 mmol/L (98-107) Carbon Dioxide Level 23 mmol/L (21-32) Anion Gap 14 (6-14) Blood Urea Nitrogen 51 mg/dL (8-26) Creatinine 5.0 mg/dL (0.7-1.3) Estimated GFR (Cockcroft-Gault) 15.0 BUN/Creatinine Ratio 10 (6-20) Glucose Level 116 mg/dL (70-99) Calcium Level 8.8 mg/dL (8.5-10.1) Total Bilirubin 0.4 mg/dL (0.2-1.0) Aspartate Amino Transf (AST/SGOT) 19 U/L (15-37) Alanine Aminotransferase (ALT/SGPT) 22 U/L (16-63) Alkaline Phosphatase 71 U/L (46-116) Total Protein 6.8 g/dL (6.4-8.2) Albumin 3.1 g/dL (3.4-5.0) Albumin/Globulin Ratio 0.8 (1.0-1.7) Triglycerides Level 115 mg/dL (0-150) Cholesterol Level 184 mg/dL (0-200) LDL Cholesterol, Calculated 108 mg/dL (0-100) VLDL Cholesterol, Calculated 23 mg/dL (0-40) Non-HDL Cholesterol Calculated 131 mg/dL (0-129) HDL Cholesterol 53 mg/dL (40-60) Cholesterol/HDL Ratio 3.5 Test 03/05/19 17:05 03/06/19 04:30 03/06/19 04:36 03/06/19 09:07 Heparin Anti-Xa Act, Unfractionated 0.54 IU/mL (0.30-0.70) 0.56 IU/mL (0.30-0.70) White Blood Count 6.1 x10^3/uL (4.0-11.0) Red Blood Count 3.57 x10^6/uL (4.30-5.70) Hemoglobin 9.5 g/dL (13.0-17.5) Hematocrit 30.0 % (39.0-53.0) Mean Corpuscular Volume 84 fL (79-100) Mean Corpuscular Hemoglobin 27 pg (25-35) Mean Corpuscular Hemoglobin Concent 32 g/dL (31-37) Red Cell Distribution Width 14.4 % (11.5-14.5) Platelet Count 117 x10^3/uL (140-400) Neutrophils (%) (Auto) 56 % (31-73) Lymphocytes (%) (Auto) 28 % (24-48) Monocytes (%) (Auto) 13 % (0-9) Eosinophils (%) (Auto) 2 % (0-3) Basophils (%) (Auto) 1 % (0-3) Neutrophils # (Auto) 3.4 x10^3uL (1.8-7.7) Lymphocytes # (Auto) 1.7 x10^3/uL (1.0-4.8) Monocytes # (Auto) 0.8 x10^3/uL (0.0-1.1) Eosinophils # (Auto) 0.1 x10^3/uL (0.0-0.7) Basophils # (Auto) 0.1 x10^3/uL (0.0-0.2) Sodium Level 141 mmol/L (136-145) Potassium Level 3.6 mmol/L (3.5-5.1) Chloride Level 106 mmol/L (98-107) Carbon Dioxide Level 24 mmol/L (21-32) Anion Gap 11 (6-14) Blood Urea Nitrogen 48 mg/dL (8-26) Creatinine 5.4 mg/dL (0.7-1.3) Estimated GFR (Cockcroft-Gault) 13.7 BUN/Creatinine Ratio 9 (6-20) Glucose Level 111 mg/dL (70-99) Calcium Level 8.6 mg/dL (8.5-10.1) Total Bilirubin 0.3 mg/dL (0.2-1.0) Aspartate Amino Transf (AST/SGOT) 15 U/L (15-37) Alanine Aminotransferase (ALT/SGPT) 19 U/L (16-63) Alkaline Phosphatase 59 U/L (46-116) Total Protein 6.3 g/dL (6.4-8.2) Albumin 2.7 g/dL (3.4-5.0) Albumin/Globulin Ratio 0.8 (1.0-1.7) Glucose (Fingerstick) 120 mg/dL (70-99) Laboratory Tests Test 03/05/19 11:15 03/05/19 17:05 03/06/19 04:30 03/06/19 04:36 Heparin Anti-Xa Act, Unfractionated 0.54 IU/mL (0.30-0.70) 0.54 IU/mL (0.30-0.70) 0.56 IU/mL (0.30-0.70) White Blood Count 6.1 x10^3/uL (4.0-11.0) Red Blood Count 3.57 x10^6/uL (4.30-5.70) Hemoglobin 9.5 g/dL (13.0-17.5) Hematocrit 30.0 % (39.0-53.0) Mean Corpuscular Volume 84 fL (79-100) Mean Corpuscular Hemoglobin 27 pg (25-35) Mean Corpuscular Hemoglobin Concent 32 g/dL (31-37) Red Cell Distribution Width 14.4 % (11.5-14.5) Platelet Count 117 x10^3/uL (140-400) Neutrophils (%) (Auto) 56 % (31-73) Lymphocytes (%) (Auto) 28 % (24-48) Monocytes (%) (Auto) 13 % (0-9) Eosinophils (%) (Auto) 2 % (0-3) Basophils (%) (Auto) 1 % (0-3) Neutrophils # (Auto) 3.4 x10^3uL (1.8-7.7) Lymphocytes # (Auto) 1.7 x10^3/uL (1.0-4.8) Monocytes # (Auto) 0.8 x10^3/uL (0.0-1.1) Eosinophils # (Auto) 0.1 x10^3/uL (0.0-0.7) Basophils # (Auto) 0.1 x10^3/uL (0.0-0.2) Sodium Level 141 mmol/L (136-145) Potassium Level 3.6 mmol/L (3.5-5.1) Chloride Level 106 mmol/L (98-107) Carbon Dioxide Level 24 mmol/L (21-32) Anion Gap 11 (6-14) Blood Urea Nitrogen 48 mg/dL (8-26) Creatinine 5.4 mg/dL (0.7-1.3) Estimated GFR (Cockcroft-Gault) 13.7 BUN/Creatinine Ratio 9 (6-20) Glucose Level 111 mg/dL (70-99) Calcium Level 8.6 mg/dL (8.5-10.1) Total Bilirubin 0.3 mg/dL (0.2-1.0) Aspartate Amino Transf (AST/SGOT) 15 U/L (15-37) Alanine Aminotransferase (ALT/SGPT) 19 U/L (16-63) Alkaline Phosphatase 59 U/L (46-116) Total Protein 6.3 g/dL (6.4-8.2) Albumin 2.7 g/dL (3.4-5.0) Albumin/Globulin Ratio 0.8 (1.0-1.7) Test 03/06/19 09:07 Glucose (Fingerstick) 120 mg/dL (70-99) Microbiology 03/04/19 Blood Culture - Preliminary, Resulted NO GROWTH AFTER 2 DAYS Medications Current Medications Albuterol/ Ipratropium (Duoneb) 3 ml 1X ONCE NEB Last administered on 03/04/19at 04:20; Start 03/04/19 at 04:15; Stop 03/04/19 at 04:26; Status DC Nitroglycerin (Nitro-Bid Oint) 1 inch 1X ONCE TP Last administered on 03/04/19at 04:31; Start 03/04/19 at 04:30; Stop 03/04/19 at 04:31; Status DC Aspirin (Karime Aspirin) 325 mg 1X ONCE PO Last administered on 03/04/19at 04:30; Start 03/04/19 at 04:30; Stop 03/04/19 at 04:31; Status DC Labetalol HCl (Normodyne Iv Push) 10 mg 1X ONCE IVP Last administered on 03/04/19at 05:40; Start 03/04/19 at 05:00; Stop 03/04/19 at 05:01; Status DC Ondansetron HCl (Zofran) 4 mg PRN Q8HRS PRN IV NAUSEA/VOMITING; Start 03/04/19 at 05:00; Stop 03/05/19 at 04:59; Status DC Fentanyl Citrate (Fentanyl 2ml Vial) 50 mcg PRN Q2HR PRN IV PAIN Last administered on 03/04/19at 09:41; Start 03/04/19 at 05:00 Albuterol/ Ipratropium (Duoneb) 3 ml RTQID NEB Last administered on 03/04/19at 07:57; Start 03/04/19 at 08:00; Stop 03/04/19 at 12:15; Status DC Insulin Human Lispro (HumaLOG) 0-5 UNITS TIDWMEALS SQ ; Start 03/04/19 at 08:00 Dextrose (Dextrose 50%-Water Syringe) 12.5 gm PRN Q15MIN PRN IV SEE COMMENTS; Start 03/04/19 at 05:00 Hydralazine HCl (Apresoline Inj) 20 mg 1X ONCE IVP Last administered on 03/04/19at 06:09; Start 03/04/19 at 05:15; Stop 03/04/19 at 05:16; Status DC Heparin Sodium (Porcine) (Heparin Sodium) 4,000 unit 1X ONCE IV Last administered on 03/04/19 05:24; Start 03/04/19 at 05:15; Stop 03/04/19 at 05:16; Status DC Heparin Sodium/ Dextrose 500 ml @ 0 mls/hr CONT PRN IV SEE I/O RECORD Last administered on 03/06/19 08:23; Start 03/04/19 at 05:15 Potassium Chloride (Klor-Con) 20 meq 1X ONCE PO Last administered on 03/04/19 05:25; Start 03/04/19 at 05:15; Stop 03/04/19 at 05:16; Status DC Bumetanide (Bumex) 1 mg 1X ONCE IV Last administered on 03/04/19 05:23; S tart 03/04/19 at 05:15; Stop 03/04/19 at 05:16; Status DC Amlodipine Besylate (Norvasc) 10 mg DAILY PO Last administered on 03/05/19 08:27; Start 03/04/19 at 11:30 Hydralazine HCl (Apresoline Inj) 10 mg PRN Q6HRS PRN IVP ELEVATED BP Last administered on 03/04/19 17:24; Start 03/04/19 at 11:30; Stop 03/04/19 at 18:28; Status DC Info (Anti-Coagulation Monitoring By Pharmacy) 1 each PRN DAILY PRN MC SEE COMMENTS Last administered on 03/05/19at 14:30; Start 03/04/19 at 12:30 Hydralazine HCl (Apresoline Inj) 20 mg PRN Q4HRS PRN IVP ELEVATED BP Last administered on 03/05/19 08:27; Start 03/04/19 at 18:30 Heparin Sodium (Porcine) (Heparin Sodium) 2,650 unit PRN Q6HRS PRN IV FOR UFH LEVEL LESS THAN 0.2 Last administered on 03/05/19 05:07; Start 03/05/19 at 05:00 Clonidine HCl (Catapres) 0.2 mg Q8HRS PO Last administered on 03/06/19 05:30; Start 03/05/19 at 14:00 Folic Acid (Folic Acid) 1 mg DAILY PO ; Start 03/06/19 at 09:00 Thiamine HCl 100 mg DAILY IM ; Start 03/06/19 at 09:00; Stop 03/11/19 at 08:59 Lorazepam (Ativan) 4 mg PRN Q1HR PRN PO For CIWA 8-14; Start 03/05/19 at 11:00 Lorazepam (Ativan Inj) 2 mg PRN Q1HR PRN IV For CIWA 8-14; Start 03/05/19 at 11:00 Lorazepam (Ativan Inj) 2 mg PRN Q15MIN PRN IV SEE COMMENTS; Start 03/05/19 at 11:00 Lorazepam (Ativan Inj) 4 mg PRN Q15MIN PRN IV SEE COMMENTS; Start 03/05/19 at 11:00 Labetalol HCl (Trandate) 200 mg BID PO Last administered on 03/05/19at 21:08; Start 03/05/19 at 11:45 Lidocaine HCl (Xylocaine-Mpf 1% 2ml Vial) 2 ml STK-MED ONCE .ROUTE ; Start 02/16 at 07:46; Stop 03/06/19 at 07:47; Status DC Iohexol (Omnipaque 300 Mg/ml) 100 ml STK-MED ONCE .ROUTE ; Start 03/06/19 at 0 7:46; Stop 03/06/19 at 07:47; Status DC Heparin Sodium/ Sodium Chloride 1,000 ml @ As Directed STK-MED ONCE .ROUTE ; Start 03/06/19 at 07:46; Stop 03/06/19 at 07:47; Status DC Lidocaine/Sodium Bicarbonate (Buffered Lidocaine 1%) 3 ml 1X ONCE INJ Last administered on 03/06/19at 08:37; Start 03/06/19 at 08:15; Stop 03/06/19 at 08:18; Status DC Vitals/I & O Vital Sign - Last 24 Hours 03/05/19 03/05/19 03/05/19 03/05/19 12:00 12:07 13:05 16:02 Temp 97.8 98.0 97.8 98.0 Pulse 102 103 103 79 Resp 15 B/P (MAP) 204/108 (140) 204/108 204/108 139/77 (97) Pulse Ox 98 99 O2 Delivery Room Air Room Air 03/05/19 03/05/19 03/05/19 03/05/19 19:00 21:08 22:19 22:35 Temp 98.3 98.2 98.3 98.2 Pulse 84 86 80 74 Resp 18 18 B/P (MAP) 137/84 (101) 137/84 129/83 129/83 (98) Pulse Ox 98 98 O2 Delivery Room Air Room Air 03/06/19 03/06/19 03/06/19 03:30 05:30 07:30 Temp 98.3 97.7 98.3 97.7 Pulse 83 83 80 Resp 16 16 B/P (MAP) 126/69 (88) 126/69 140/88 (105) Pulse Ox 97 97 O2 Delivery Room Air Room Air Intake and Output 03/05/19 03/05/19 03/06/19 15:00 23:00 07:00 Intake Total 300 ml 1348 ml 769 ml Balance 300 ml 1348 ml 769 ml VINCENT BRADFORD MD March 06, 2019 09:49
[2019-03-06] MEDS ORDERED: MIDAZOLAM HCL/PF 5 MG/5 ML VIAL. ONE (10:30)
[2019-03-06] MEDS ORDERED: fentaNYL PF VIAL 100 MCG/2 ML VIAL ONE ×2 (10:30→11:10)
--- NOTE | 2019-03-06 10:36 | RAD ---
Procedure: Ultrasound-guided placement of right internal jugular temporary dialysis catheter 03/06/2019 10:29 AM Clinical Indication: Acute renal failure Discussion: The risks and benefits of the procedure were discussed the patient and/or their entry level marketing representative. Informed consent was obtained. A timeout procedure was performed. All elements of maximal sterile barrier technique including the use of a cap, mask, sterile gown, sterile gloves, large sterile sheet, appropriate hand hygiene, and 2% chlorhexidine for cutaneous antisepsis (or acceptable alternative antiseptic per current guidelines) were followed for this procedure. The patient was prepped and draped in the usual sterile fashion. Ultrasound interrogation of the right neck revealed patency and compressibility of the right internal jugular vein. A 21-gauge micropuncture was then used to gain access to this vein under ultrasound guidance. A hard copy ultrasound image was recorded. A guidewire was advanced centrally. 5 [place] sheath was placed. Over a wire following dilatation, a dual-lumen temporary dialysis catheter was advanced centrally. Catheter was found to flush and aspirate normally. Follow-up chest radiograph demonstrates tip at the cavoatrial junction. Catheter secured in place and a sterile dressing was applied. No immediate complications were identified. Impression: Successful ultrasound-guided placement of right internal jugular temporary dialysis catheter
[2019-03-06] MEDS ORDERED: LIDOCAINE 1% Multi-Dose 20 ML VIAL. ONE (10:44)
--- NOTE | 2019-03-06 10:56 | PDOC ---
SUBJECTIVE ROS s/p cardiac cath earlier today, states he is very hungry . No other complaints OBJECTIVE Vital Signs Vital Signs Date Time Temp Pulse Resp B/P (MAP) Pulse Ox O2 Delivery O2 Flow Rate FiO2 03/06/19 08:00 Room Air 03/06/19 07:30 97.7 80 16 140/88 (105) 97 97.7 I & 0 Intake and Output 03/06/19 06:59 Intake Total 2417 ml Balance 2417 ml Intake Oral 1600 ml IV Total 469 ml Other 348 ml # Voids 7 # Bowel Movements 1 PHYSICAL EXAM Physical Exam GEN: NAD HEN: Om moist NECK: supple CVS: RRR RESP: CTA, No acc muscle use GI: BS + ve, NO Bruit, Non Tender, Non Distended : No Miguel DIAGNOSIS/ASSESSMENT Assessment & Plan Chronic kidney disease secondary to hypertension and nephrosclerosis, currently end-stage renal disease status. Pt has been refusing initiation of HD ,Agreed this am Temp HD cath placed (not Tunnelled as pt was on Heparin ) E-Lytes and acid base stable Initiate HD today , 1st treatment as ordered, No UF Congestive heart failure, most probably acute on chronic, sudden onset. compensated currently NSTEMI- S/P Cardiac cath this am Anemia- Noted drop in Hg Per primary Accelerated hypertension: Blood pressure continues to be elevated. Start labetalol for better control. Renal arterial duplex pending Cardiology managing Diabetes mellitus type 2: Per Primary COMMENT/RELEVANT DATA Meds Current Medications Medications (Trade) Dose Ordered Sig/Sakshi Start Time Stop Time Status Last Admin Dose Admin Albuterol/ Ipratropium (Duoneb) 3 ml RTQID 03/04/19 08:00 03/04/19 12:15 DC 03/04/19 07:57 3 ML Amlodipine Besylate (Norvasc) 10 mg DAILY 03/04/19 11:30 03/05/19 08:27 10 MG Aspirin (Karime Aspirin) 325 mg 1X ONCE 03/04/19 04:30 03/04/19 04:31 DC 03/04/19 04:30 325 MG Bumetanide (Bumex) 1 mg 1X ONCE 03/04/19 05:15 03/04/19 05:16 DC 03/04/19 05:23 1 MG Clonidine HCl (Catapres) 0.2 mg Q8HRS 03/05/19 14:00 03/06/19 05:30 0.2 MG Dextrose (Dextrose 50%-Water Syringe) 12.5 gm PRN Q15MIN PRN 03/04/19 05:00 Fentanyl Citrate (Fentanyl 2ml Vial) 100 mcg STK-MED ONCE 03/06/19 10:30 03/06/19 10:31 DC Folic Acid (Folic Acid) 1 mg DAILY 03/06/19 09:00 Heparin Sodium (Porcine) (Heparin Sodium) 2,650 unit PRN Q6HRS PRN 03/05/19 05:00 03/05/19 05:07 2,650 UNIT Heparin Sodium/ Dextrose 500 ml @ 0 mls/hr CONT PRN 03/04/19 05:15 03/06/19 08:23 30 MLS/HR Heparin Sodium/ Sodium Chloride 1,000 ml @ As Directed STK-MED ONCE 03/06/19 07:46 03/06/19 07:47 DC Hydralazine HCl (Apresoline Inj) 20 mg PRN Q4HRS PRN 03/04/19 18:30 03/05/19 08:27 20 MG Info (Anti-Coagulation Monitoring By Pharmacy) 1 each PRN DAILY PRN 03/04/19 12:30 03/05/19 14:30 1 EACH Insulin Human Lispro (HumaLOG) 0-5 UNITS TIDWMEALS 03/04/19 08:00 Iohexol (Omnipaque 300 Mg/ml) 100 ml STK-MED ONCE 03/06/19 07:46 03/06/19 07:47 DC Labetalol HCl (Normodyne Iv Push) 10 mg 1X ONCE 03/04/19 05:00 03/04/19 05:01 DC 03/04/19 05:40 10 MG Labetalol HCl (Trandate) 200 mg BID 03/05/19 11:45 03/05/19 21:08 200 MG Lidocaine HCl (Lidocaine 1% 20ml Vial) 20 ml STK-MED ONCE 03/06/19 10:44 03/06/19 10:45 DC Lidocaine HCl (Xylocaine-Mpf 1% 2ml Vial) 2 ml STK-MED ONCE 03/06/19 07:46 03/06/19 07:47 DC Lidocaine/Sodium Bicarbonate (Buffered Lidocaine 1%) 3 ml 1X ONCE 03/06/19 08:15 03/06/19 08:18 DC 03/06/19 08:37 3 ML Lorazepam (Ativan Inj) 4 mg PRN Q15MIN PRN 03/05/19 11:00 Lorazepam (Ativan) 4 mg PRN Q1HR PRN 03/05/19 11:00 Midazolam HCl (Versed) 5 mg STK-MED ONCE 03/06/19 10:30 03/06/19 10:31 DC Nitroglycerin (Nitro-Bid Oint) 1 inch 1X ONCE 03/04/19 04:30 03/04/19 04:31 DC 03/04/19 04:31 1 INCH Ondansetron HCl (Zofran) 4 mg PRN Q8HRS PRN 03/04/19 05:00 03/05/19 04:59 DC Potassium Chloride (Klor-Con) 20 meq 1X ONCE 03/04/19 05:15 03/04/19 05:16 DC 03/04/19 05:25 20 MEQ Thiamine HCl 100 mg DAILY 03/06/19 09:00 03/11/19 08:59 Lab Laboratory Tests Test 03/05/19 11:15 03/05/19 17:05 03/06/19 04:30 03/06/19 04:36 Heparin Anti-Xa Act, Unfractionated 0.54 IU/mL (0.30-0.70) 0.54 IU/mL (0.30-0.70) 0.56 IU/mL (0.30-0.70) White Blood Count 6.1 x10^3/uL (4.0-11.0) Red Blood Count 3.57 x10^6/uL (4.30-5.70) Hemoglobin 9.5 g/dL (13.0-17.5) Hematocrit 30.0 % (39.0-53.0) Mean Corpuscular Volume 84 fL (79-100) Mean Corpuscular Hemoglobin 27 pg (25-35) Mean Corpuscular Hemoglobin Concent 32 g/dL (31-37) Red Cell Distribution Width 14.4 % (11.5-14.5) Platelet Count 117 x10^3/uL (140-400) Neutrophils (%) (Auto) 56 % (31-73) Lymphocytes (%) (Auto) 28 % (24-48) Monocytes (%) (Auto) 13 % (0-9) Eosinophils (%) (Auto) 2 % (0-3) Basophils (%) (Auto) 1 % (0-3) Neutrophils # (Auto) 3.4 x10^3uL (1.8-7.7) Lymphocytes # (Auto) 1.7 x10^3/uL (1.0-4.8) Monocytes # (Auto) 0.8 x10^3/uL (0.0-1.1) Eosinophils # (Auto) 0.1 x10^3/uL (0.0-0.7) Basophils # (Auto) 0.1 x10^3/uL (0.0-0.2) Sodium Level 141 mmol/L (136-145) Potassium Level 3.6 mmol/L (3.5-5.1) Chloride Level 106 mmol/L (98-107) Carbon Dioxide Level 24 mmol/L (21-32) Anion Gap 11 (6-14) Blood Urea Nitrogen 48 mg/dL (8-26) Creatinine 5.4 mg/dL (0.7-1.3) Estimated GFR (Cockcroft-Gault) 13.7 BUN/Creatinine Ratio 9 (6-20) Glucose Level 111 mg/dL (70-99) Calcium Level 8.6 mg/dL (8.5-10.1) Total Bilirubin 0.3 mg/dL (0.2-1.0) Aspartate Amino Transf (AST/SGOT) 15 U/L (15-37) Alanine Aminotransferase (ALT/SGPT) 19 U/L (16-63) Alkaline Phosphatase 59 U/L (46-116) Total Protein 6.3 g/dL (6.4-8.2) Albumin 2.7 g/dL (3.4-5.0) Albumin/Globulin Ratio 0.8 (1.0-1.7) Test 03/06/19 09:07 Glucose (Fingerstick) 120 mg/dL (70-99) Results All relevant outside records, renal labs, imaging studies, telemetry/EKG's were reviewed. DON PENNINGTON MD March 06, 2019 10:56
[2019-03-06] MEDS ORDERED: PROPOFOL 60 ML IV ONE (11:09)
--- NOTE | 2019-03-06 11:09 | PDOC ---
MODERATE SEDATION ASSESSMENT RISKS/ALTERNATIVES Risks/Alternatives Risks and alternatives of this type of sedation and procedure discussed with: RISK/ALTERNATIVES: Patient H & P ON CHART H & P H & P on chart and reviewed for co-morbid conditions and appropriate labs. H&P ON CHART: Yes STATUS PREG STATUS ASSESSED: N/A MEDS/ALLERGIES REVIEWED Meds/Allergies Reviewed Medications and Allergies including time and route of recently administered narcotics and sedatives. MEDS/ALLERGIES REVIEWED: Yes ASA RATING ASA RATING: II AIRWAY ASSESSMENT Airway Assessment Airway patency, oral function limitations, presence of caps, crowns, dentures, partials, and ability to extend neck assessed. AIRWAY ASSESSMENT: Yes MALLAMPATI SCORE MALLAMPATI SCORE: II PRE-SEDATION ASSESSMENT PRE-SEDATION ASSESSMENT: Yes TRAVIS GORDILLO MD March 06, 2019 11:09
[2019-03-06] MEDS ORDERED: MIDAZOLAM HCL/PF 2 MG/2 ML VIAL. ONE (11:10)
[2019-03-06] MEDS ORDERED: fentaNYL PF VIAL 100 MCG/2 ML VIAL IV PRN ×2 (11:15)
[2019-03-06] MEDS ORDERED: PROCHLORPERAZINE 10 MG/2 ML VIAL. IV PRN (11:15)
[2019-03-06] MEDS ORDERED: MORPHINE SULFATE 2 MG/ML VIAL. IV PRN (11:15)
[2019-03-06] MEDS ORDERED: ONDANSETRON PF 4 MG/2 ML VIAL. IV PRN (11:15)
[2019-03-06] MEDS ORDERED: HYDROmorphone 2 MG/ML VIAL IV PRN (11:15)
[2019-03-06] MEDS ORDERED: IV RINGERS,LACTATED 1000ML 1,000 ML IV SCH (11:30)
[2019-03-06] MEDS ORDERED: LIDOCAINE 1% Multi-Dose 20 ML VIAL. INJ ONE (11:45)
[2019-03-06] MEDS ORDERED: IOHEXOL 300 MG/ML 100ML VIAL. IART ONE (11:45)
[2019-03-06] MEDS ORDERED: CONTRAST GIVEN. MC PRN (12:00)
--- NOTE | 2019-03-06 13:10 | CARD ---
MR#: [id number] Date of Study: 03/06/2019 Ordering Physician: ENA NORRIS, Referring Physician: Gela CASTRO: Cristine Barnes RT (R) APPROVED REPORT Procedures Left heart catheterization Selective coronary angiogram Aortic root injection The patient is a 48-year-old male who was admitted with episodes of chest pain and shortness of breat h, renal failure and a mildly elevated troponin. Echocardiogram showed normal LV systolic function. S econdary to the patient's elevated troponin and chest pain a cardiac catheterization was recommende d. Risks and benefits were discussed with the patient. He did request anesthesiology assistance chrystal das to severe anxiety. He agreed to proceed with cardiac catheterization with anesthesiology assista jovani. After informed consent was obtained the patient was prepared the usual manner with Betadine, sterile draping and local anesthetic. The anesthesiology service was present and administered sedation as req uired. An 18-gauge needle was used to enter the right femoral artery, a wire placed and a 6 [place] sh eath placed over the wire. With all exchanges over a J-wire, a 6 [place] JL4 diagnostic catheter was advanced to the ascending aorta. It proved to be too small to cleanly engage the left main and was re placed with a JL 5. Sequential injections in various views were obtained. A 6 [place] Fletcher right d iagnostic catheter was used to engage the right coronary artery system and sequential injections in v arious views were obtained. A pigtail catheter was advanced to the ascending aorta and then the left ventricle. Pressures were obtained. Pullback pressures were measured. A 30 AAMNDEEP aortic root injection was performed. The catheter was removed from the patient. Injection the sheath showed normal placeme nt. The sheath was removed and sealed with an Angio-Seal product. The patient was moved to the [facility] in stable condition. Findings. Hemodynamics. LV pressure of 110/14, 26. Aortic root pressure of 108/78. Coronaries. Left main. The left main was a very large vessel with no lesions. Left anterior descending. The LAD was a large vessel with normal distribution. It had no lesions. Left circumflex. The left circumflex is a moderately large vessel. It had no lesions. Right coronary artery. The right coronary was a large dominant vessel. It had no lesions. Aortic root injection. The aortic root showed a mildly dilated aortic root with trace insufficiency. <Conclusion> Large coronary arteries with no angiographic evidence of coronary artery disease. Elevated LVEDP. Mildly dilated aortic root. Signed by : Cezar Vallejo MD Electronically Approved : 03/06/2019 13:10:08
[2019-03-06] MEDS ORDERED: 0.9 % SODIUM CHLORIDE 10 ML DISP.SYRIN. IV PRN ×3 (13:15→14:30)
[2019-03-06] MEDS ORDERED: NITROGLYCERIN SUBLINGUAL 0.4 MG BOTTLE OF 25. SL PRN (13:15)
[2019-03-06] MEDS ORDERED: IV NORMAL SALINE 1000ML BAG 1,000 ML IV PRN ×2 (14:22)
[2019-03-06] MEDS ORDERED: DIALYSIS PATIENT. MC PRN ×2 (14:30)
[2019-03-06] MEDS ORDERED: ALBUMIN HUMAN 25% 200 ML IV PRN (14:30)
--- NOTE | 2019-03-06 14:49 | NUR ---
SS following for discharge planning. SS reviewed pt chart. Pt is from home. No discharge needs noted at this time. SS will continue to follow for discharge planning.
[2019-03-06] MEDS: FOLIC ACID 1 MG TABLET. PO SCH (15:21)
[2019-03-06] MEDS: amLODIPine BESYLATE 10 MG TABLET PO SCH (15:22)
[2019-03-06] MEDS: LABETALOL HCL 200 MG TABLET PO SCH ×2 (15:23→20:48)
[2019-03-06] MEDS: THIAMINE IM 200 MG/2 ML VIAL. IM SCH (15:24)
[2019-03-06] MEDS: fentaNYL PF VIAL 100 MCG/2 ML VIAL IV PRN ×2 (15:37→21:21)
--- NOTE | 2019-03-06 15:52 | NUR ---
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 Will continue to monitor.
--- NOTE | 2019-03-07 00:10 | NUR ---
This should be for 2359 and not 1159. Will document on 9. Addendum: 03/07/19 at 0011 by JALYN GARAY RN RN Amended: Links added.
[2019-03-07] MEDS: fentaNYL PF VIAL 100 MCG/2 ML VIAL IV PRN ×2 (00:30→20:47)
--- NOTE | 2019-03-07 02:32 | NUR ---
Pt Heparin drip was discontinued prior to my shift. Co-signed with Kelly HANDLEY to End infusion.
[2019-03-07 03:03] VITALS: BP 117/77
[2019-03-07 04:45] LABS: BASO % 1 % (0-3); EOS # 0.2 x10^3/uL (0.0-0.7); EOS % 3 % (0-3); HEMATOCRIT 30.5 % (39.0-53.0); HEMOGLOBIN 9.8 g/dL (13.0-17.5); LYMPH # 1.1 x10^3/uL (1.0-4.8); LYMPH % 19 % (24-48); MEAN CORPUSCULAR HEMOGLOBIN 27 pg (25-35); MEAN CORPUSCULAR HGB CONC 32 g/dL (31-37); MEAN CORPUSCULAR VOLUME 84 fL (79-100); MONO # 0.6 x10^3/uL (0.0-1.1); MONO % 11 % (0-9); NEUT # 3.7 x10^3uL (1.8-7.7); NEUT % 66 % (31-73); PLATELET COUNT 108 x10^3/uL (140-400); RED BLOOD COUNT 3.63 x10^6/uL (4.30-5.70); RED CELL DISTRIBUTION WIDTH 14.4 % (11.5-14.5); WHITE BLOOD COUNT 5.6 x10^3/uL (4.0-11.0)
[2019-03-07 05:17] LABS: ALBUMIN 2.7 g/dL (3.4-5.0); ALBUMIN/GLOBULIN RATIO 0.7 (1.0-1.7); CALCIUM 8.8 mg/dL (8.5-10.1); CREATININE 3.9 mg/dL (0.7-1.3); POTASSIUM 3.9 mmol/L (3.5-5.1); TOTAL BILIRUBIN 0.2 mg/dL (0.2-1.0); TOTAL PROTEIN 6.7 g/dL (6.4-8.2)
[2019-03-07] MEDS: cloNIDine HCL 0.2 MG TABLET PO SCH ×3 (05:57→20:46)
[2019-03-07 07:00] VITALS: BP 138/91
[2019-03-07] MEDS ORDERED: IV NORMAL SALINE 1000ML BAG 1,000 ML IV PRN ×2 (07:31)
[2019-03-07] MEDS ORDERED: DIALYSIS PATIENT. MC PRN (07:45)
[2019-03-07] MEDS ORDERED: ALBUMIN HUMAN 25% 200 ML IV PRN (07:45)
[2019-03-07] MEDS ORDERED: 0.9 % SODIUM CHLORIDE 10 ML DISP.SYRIN. IV PRN ×2 (07:45)
[2019-03-07] MEDS ORDERED: diphenhydrAMINE 50 MG/ML VIAL IV PRN ×2 (07:45)
[2019-03-07] MEDS ORDERED: ACETAMINOPHEN 500 MG TABLET PO PRN (07:45)
[2019-03-07] MEDS: INSULIN LISPRO 300 UNITS/3 ML INSULN.PEN. SQ SCH ×3 (08:00→17:00)
[2019-03-07] MEDS: THIAMINE IM 200 MG/2 ML VIAL. IM SCH (09:00)
--- NOTE | 2019-03-07 09:19 | PDOC ---
PROGRESS NOTES History of Present Illness History of Present Illness VTE Prophylaxis Ordered VTE Prophylaxis Devices: Yes VTE Pharmacological Prophylaxi: Yes Assessment/Plan Assessment/Plan Assessment 1. Congestive heart failure, acute on chronic, flash nature of pulmonary edema, . Check 2-D echo to assess LV systolic function. 2. Non-STEMI most probably type II but significant coronary artery disease needs to be ruled out. Telemetry did not show any significant arrhythmias. We will consider cardiac catheterization pending nephrology clearance. If he is deemed high risk from their standpoint, we will plan for stress test. 3. Accelerated hypertension: Start Norvasc 4. Diabetes mellitus type 2: 5. END STAGE RENAL DISEASEnephrology consultation. 6. TOBACCO ABUSE 7. OBESITY BMI 31 8. hypertensive urgency 9. hx noncompliance 10. alcohol binge drinking hx 11. Successful ultrasound-guided placement of right internal jugular temporary dialysis catheter 03/06 plan renal arterial duplex scan to rule out renal artery stenosis LEONIE cardiac catheterization 03/06 NO CRITICAL STENOSIS begin dialysis LEONIE D/W DR PATRICK Check 2-D echo CARDIOLOGY CONSULT NEPHROLOGY CONSULT cont catapress 0.2mg po tid hydralazine 20mg iv q 4 hrs prn bp support alcohol withdrawal precautions HD today( 2nd treatment) , Tolerating well 39 MIN CC TIME Vitals Vitals Vital Signs Date Time Temp Pulse Resp B/P (MAP) Pulse Ox O2 Delivery O2 Flow Rate FiO2 03/07/19 07:00 98.3 76 21 138/91 (107) 95 Room Air 98.3 03/06/19 12:30 2.0 Physical Exam General: Alert, Oriented X3, Cooperative, No acute distress, mild distress Heart: Regular rate, Normal S1 Lungs: Clear Abdomen: Normal bowel sounds, Soft, No tenderness Extremities: No clubbing, No cyanosis Labs LABS Laboratory Tests Test 03/06/19 09:30 03/06/19 13:00 03/06/19 15:21 03/06/19 18:03 Nasal Screen MRSA (PCR) Negative (Negative) Heparin Anti-Xa Act, Unfractionated 0.13 IU/mL (0.30-0.70) Hepatitis B Surface Antigen Nonreactive (Nonreactive) Hepatitis B Surface Antibody Nonreactive Glucose (Fingerstick) 95 mg/dL (70-99) 114 mg/dL (70-99) Test 03/06/19 20:46 03/07/19 04:05 Glucose (Fingerstick) 104 mg/dL (70-99) White Blood Count 5.6 x10^3/uL (4.0-11.0) Red Blood Count 3.63 x10^6/uL (4.30-5.70) Hemoglobin 9.8 g/dL (13.0-17.5) Hematocrit 30.5 % (39.0-53.0) Mean Corpuscular Volume 84 fL (79-100) Mean Corpuscular Hemoglobin 27 pg (25-35) Mean Corpuscular Hemoglobin Concent 32 g/dL (31-37) Red Cell Distribution Width 14.4 % (11.5-14.5) Platelet Count 108 x10^3/uL (140-400) Neutrophils (%) (Auto) 66 % (31-73) Lymphocytes (%) (Auto) 19 % (24-48) Monocytes (%) (Auto) 11 % (0-9) Eosinophils (%) (Auto) 3 % (0-3) Basophils (%) (Auto) 1 % (0-3) Neutrophils # (Auto) 3.7 x10^3uL (1.8-7.7) Lymphocytes # (Auto) 1.1 x10^3/uL (1.0-4.8) Monocytes # (Auto) 0.6 x10^3/uL (0.0-1.1) Eosinophils # (Auto) 0.2 x10^3/uL (0.0-0.7) Basophils # (Auto) 0.0 x10^3/uL (0.0-0.2) Sodium Level 140 mmol/L (136-145) Potassium Level 3.9 mmol/L (3.5-5.1) Chloride Level 103 mmol/L (98-107) Carbon Dioxide Level 27 mmol/L (21-32) Anion Gap 10 (6-14) Blood Urea Nitrogen 30 mg/dL (8-26) Creatinine 3.9 mg/dL (0.7-1.3) Estimated GFR (Cockcroft-Gault) 20.0 BUN/Creatinine Ratio 8 (6-20) Glucose Level 113 mg/dL (70-99) Calcium Level 8.8 mg/dL (8.5-10.1) Total Bilirubin 0.2 mg/dL (0.2-1.0) Aspartate Amino Transf (AST/SGOT) 18 U/L (15-37) Alanine Aminotransferase (ALT/SGPT) 20 U/L (16-63) Alkaline Phosphatase 60 U/L (46-116) Total Protein 6.7 g/dL (6.4-8.2) Albumin 2.7 g/dL (3.4-5.0) Albumin/Globulin Ratio 0.7 (1.0-1.7) Assessment and Plan Assessmemt and Plan Problems Medical Problems: (1) Elevated serum creatinine Status: Acute (2) Elevated troponin Status: Acute (3) Hypokalemia Status: Acute (4) Shortness of breath Status: Acute Comment Review of Relevant I have reviewed the following items susan (where applicable) has been applied. Labs Laboratory Tests Test 03/05/19 11:15 03/05/19 17:05 03/06/19 04:30 03/06/19 04:36 Heparin Anti-Xa Act, Unfractionated 0.54 IU/mL (0.30-0.70) 0.54 IU/mL (0.30-0.70) 0.56 IU/mL (0.30-0.70) White Blood Count 6.1 x10^3/uL (4.0-11.0) Red Blood Count 3.57 x10^6/uL (4.30-5.70) Hemoglobin 9.5 g/dL (13.0-17.5) Hematocrit 30.0 % (39.0-53.0) Mean Corpuscular Volume 84 fL (79-100) Mean Corpuscular Hemoglobin 27 pg (25-35) Mean Corpuscular Hemoglobin Concent 32 g/dL (31-37) Red Cell Distribution Width 14.4 % (11.5-14.5) Platelet Count 117 x10^3/uL (140-400) Neutrophils (%) (Auto) 56 % (31-73) Lymphocytes (%) (Auto) 28 % (24-48) Monocytes (%) (Auto) 13 % (0-9) Eosinophils (%) (Auto) 2 % (0-3) Basophils (%) (Auto) 1 % (0-3) Neutrophils # (Auto) 3.4 x10^3uL (1.8-7.7) Lymphocytes # (Auto) 1.7 x10^3/uL (1.0-4.8) Monocytes # (Auto) 0.8 x10^3/uL (0.0-1.1) Eosinophils # (Auto) 0.1 x10^3/uL (0.0-0.7) Basophils # (Auto) 0.1 x10^3/uL (0.0-0.2) Sodium Level 141 mmol/L (136-145) Potassium Level 3.6 mmol/L (3.5-5.1) Chloride Level 106 mmol/L (98-107) Carbon Dioxide Level 24 mmol/L (21-32) Anion Gap 11 (6-14) Blood Urea Nitrogen 48 mg/dL (8-26) Creatinine 5.4 mg/dL (0.7-1.3) Estimated GFR (Cockcroft-Gault) 13.7 BUN/Creatinine Ratio 9 (6-20) Glucose Level 111 mg/dL (70-99) Calcium Level 8.6 mg/dL (8.5-10.1) Total Bilirubin 0.3 mg/dL (0.2-1.0) Aspartate Amino Transf (AST/SGOT) 15 U/L (15-37) Alanine Aminotransferase (ALT/SGPT) 19 U/L (16-63) Alkaline Phosphatase 59 U/L (46-116) Total Protein 6.3 g/dL (6.4-8.2) Albumin 2.7 g/dL (3.4-5.0) Albumin/Globulin Ratio 0.8 (1.0-1.7) Test 03/06/19 09:07 03/06/19 09:30 03/06/19 13:00 03/06/19 15:21 Glucose (Fingerstick) 120 mg/dL (70-99) 95 mg/dL (70-99) Nasal Screen MRSA (PCR) Negative (Negative) Heparin Anti-Xa Act, Unfractionated 0.13 IU/mL (0.30-0.70) Hepatitis B Surface Antigen Nonreactive (Nonreactive) Hepatitis B Surface Antibody Nonreactive Test 03/06/19 18:03 03/06/19 20:46 03/07/19 04:05 Glucose (Fingerstick) 114 mg/dL (70-99) 104 mg/dL (70-99) White Blood Count 5.6 x10^3/uL (4.0-11.0) Red Blood Count 3.63 x10^6/uL (4.30-5.70) Hemoglobin 9.8 g/dL (13.0-17.5) Hematocrit 30.5 % (39.0-53.0) Mean Corpuscular Volume 84 fL (79-100) Mean Corpuscular Hemoglobin 27 pg (25-35) Mean Corpuscular Hemoglobin Concent 32 g/dL (31-37) Red Cell Distribution Width 14.4 % (11.5-14.5) Platelet Count 108 x10^3/uL (140-400) Neutrophils (%) (Auto) 66 % (31-73) Lymphocytes (%) (Auto) 19 % (24-48) Monocytes (%) (Auto) 11 % (0-9) Eosinophils (%) (Auto) 3 % (0-3) Basophils (%) (Auto) 1 % (0-3) Neutrophils # (Auto) 3.7 x10^3uL (1.8-7.7) Lymphocytes # (Auto) 1.1 x10^3/uL (1.0-4.8) Monocytes # (Auto) 0.6 x10^3/uL (0.0-1.1) Eosinophils # (Auto) 0.2 x10^3/uL (0.0-0.7) Basophils # (Auto) 0.0 x10^3/uL (0.0-0.2) Sodium Level 140 mmol/L (136-145) Potassium Level 3.9 mmol/L (3.5-5.1) Chloride Level 103 mmol/L (98-107) Carbon Dioxide Level 27 mmol/L (21-32) Anion Gap 10 (6-14) Blood Urea Nitrogen 30 mg/dL (8-26) Creatinine 3.9 mg/dL (0.7-1.3) Estimated GFR (Cockcroft-Gault) 20.0 BUN/Creatinine Ratio 8 (6-20) Glucose Level 113 mg/dL (70-99) Calcium Level 8.8 mg/dL (8.5-10.1) Total Bilirubin 0.2 mg/dL (0.2-1.0) Aspartate Amino Transf (AST/SGOT) 18 U/L (15-37) Alanine Aminotransferase (ALT/SGPT) 20 U/L (16-63) Alkaline Phosphatase 60 U/L (46-116) Total Protein 6.7 g/dL (6.4-8.2) Albumin 2.7 g/dL (3.4-5.0) Albumin/Globulin Ratio 0.7 (1.0-1.7) Laboratory Tests Test 03/06/19 09:30 03/06/19 13:00 03/06/19 15:21 03/06/19 18:03 Nasal Screen MRSA (PCR) Negative (Negative) Heparin Anti-Xa Act, Unfractionated 0.13 IU/mL (0.30-0.70) Hepatitis B Surface Antigen Nonreactive (Nonreactive) Hepatitis B Surface Antibody Nonreactive Glucose (Fingerstick) 95 mg/dL (70-99) 114 mg/dL (70-99) Test 03/06/19 20:46 03/07/19 04:05 Glucose (Fingerstick) 104 mg/dL (70-99) White Blood Count 5.6 x10^3/uL (4.0-11.0) Red Blood Count 3.63 x10^6/uL (4.30-5.70) Hemoglobin 9.8 g/dL (13.0-17.5) Hematocrit 30.5 % (39.0-53.0) Mean Corpuscular Volume 84 fL (79-100) Mean Corpuscular Hemoglobin 27 pg (25-35) Mean Corpuscular Hemoglobin Concent 32 g/dL (31-37) Red Cell Distribution Width 14.4 % (11.5-14.5) Platelet Count 108 x10^3/uL (140-400) Neutrophils (%) (Auto) 66 % (31-73) Lymphocytes (%) (Auto) 19 % (24-48) Monocytes (%) (Auto) 11 % (0-9) Eosinophils (%) (Auto) 3 % (0-3) Basophils (%) (Auto) 1 % (0-3) Neutrophils # (Auto) 3.7 x10^3uL (1.8-7.7) Lymphocytes # (Auto) 1.1 x10^3/uL (1.0-4.8) Monocytes # (Auto) 0.6 x10^3/uL (0.0-1.1) Eosinophils # (Auto) 0.2 x10^3/uL (0.0-0.7) Basophils # (Auto) 0.0 x10^3/uL (0.0-0.2) Sodium Level 140 mmol/L (136-145) Potassium Level 3.9 mmol/L (3.5-5.1) Chloride Level 103 mmol/L (98-107) Carbon Dioxide Level 27 mmol/L (21-32) Anion Gap 10 (6-14) Blood Urea Nitrogen 30 mg/dL (8-26) Creatinine 3.9 mg/dL (0.7-1.3) Estimated GFR (Cockcroft-Gault) 20.0 BUN/Creatinine Ratio 8 (6-20) Glucose Level 113 mg/dL (70-99) Calcium Level 8.8 mg/dL (8.5-10.1) Total Bilirubin 0.2 mg/dL (0.2-1.0) Aspartate Amino Transf (AST/SGOT) 18 U/L (15-37) Alanine Aminotransferase (ALT/SGPT) 20 U/L (16-63) Alkaline Phosphatase 60 U/L (46-116) Total Protein 6.7 g/dL (6.4-8.2) Albumin 2.7 g/dL (3.4-5.0) Albumin/Globulin Ratio 0.7 (1.0-1.7) Microbiology 03/04/19 Blood Culture - Preliminary, Resulted NO GROWTH AFTER 3 DAYS Medications Current Medications Albuterol/ Ipratropium (Duoneb) 3 ml 1X ONCE NEB Last administered on 03/04/19at 04:20; Start 03/04/19 at 04:15; Stop 03/04/19 at 04:26; Status DC Nitroglycerin (Nitro-Bid Oint) 1 inch 1X ONCE TP Last administered on 03/04/19at 04:31; Start 03/04/19 at 04:30; Stop 03/04/19 at 04:31; Status DC Aspirin (Karime Aspirin) 325 mg 1X ONCE PO Last administered on 03/04/19at 04:3 0; Start 03/04/19 at 04:30; Stop 03/04/19 at 04:31; Status DC Labetalol HCl (Normodyne Iv Push) 10 mg 1X ONCE IVP Last administered on 03/04/19at 05:40; Start 03/04/19 at 05:00; Stop 03/04/19 at 05:01; Status DC Ondansetron HCl (Zofran) 4 mg PRN Q8HRS PRN IV NAUSEA/VOMITING; Start 03/04/19 at 05:00; Stop 03/05/19 at 04:59; Status DC Fentanyl Citrate (Fentanyl 2ml Vial) 50 mcg PRN Q2HR PRN IV PAIN Last administered on 03/07/19at 00:30; Start 03/04/19 at 05:00 Albuterol/ Ipratropium (Duoneb) 3 ml RTQID NEB Last administered on 03/04/19at 07:57; Start 03/04/19 at 08:00; Stop 03/04/19 at 12:15; Status DC Insulin Human Lispro (HumaLOG) 0-5 UNITS TIDWMEALS SQ ; Start 03/04/19 at 08:00 Dextrose (Dextrose 50%-Water Syringe) 12.5 gm PRN Q15MIN PRN IV SEE COMMENTS; Start 03/04/19 at 05:00 Hydralazine HCl (Apresoline Inj) 20 mg 1X ONCE IVP Last administered on 03/04/19at 06:09; Start 03/04/19 at 05:15; Stop 03/04/19 at 05:16; Status DC Heparin Sodium (Porcine) (Heparin Sodium) 4,000 unit 1X ONCE IV Last admin istered on 03/04/19at 05:24; Start 03/04/19 at 05:15; Stop 03/04/19 at 05:16; Status DC Heparin Sodium/ Dextrose 500 ml @ 0 mls/hr CONT PRN IV SEE I/O RECORD Last administered on 03/06/19at 08:23; Start 03/04/19 at 05:15; Stop 03/06/19 at 15:54; Status DC Potassium Chloride (Klor-Con) 20 meq 1X ONCE PO Last administered on 03/04/19at 05:25; Start 03/04/19 at 05:15; Stop 03/04/19 at 05:16; Status DC Bumetanide (Bumex) 1 mg 1X ONCE IV Last administered on 03/04/19at 05:23; Start 03/04/19 at 05:15; Stop 03/04/19 at 05:16; Status DC Amlodipine Besylate (Norvasc) 10 mg DAILY PO Last administered on 03/06/19at 15:22; Start 03/04/19 at 11:30 Hydralazine HCl (Apresoline Inj) 10 mg PRN Q6HRS PRN IVP ELEVATED BP Last administered on 03/04/19at 17:24; Start 03/04/19 at 11:30; Stop 03/04/19 at 18:28; Status DC Info (Anti-Coagulation Monitoring By Pharmacy) 1 each PRN DAILY PRN MC SEE COMM ENTS Last administered on 03/05/19at 14:30; Start 03/04/19 at 12:30 Hydralazine HCl (Apresoline Inj) 20 mg PRN Q4HRS PRN IVP ELEVATED BP Last administered on 03/05/19 08:27; Start 03/04/19 at 18:30 Heparin Sodium (Porcine) (Heparin Sodium) 2,650 unit PRN Q6HRS PRN IV FOR UFH LEVEL LESS THAN 0.2 Last administered on 03/05/19at 05:07; Start 03/05/19 at 05:00 Clonidine HCl (Catapres) 0.2 mg Q8HRS PO Last administered on 03/07/19 05:57; Start 03/05/19 at 14:00 Folic Acid (Folic Acid) 1 mg DAILY PO Last administered on 03/06/19at 15:21; Start 03/06/19 at 09:00 Thiamine HCl 100 mg DAILY IM ; Start 03/06/19 at 09:00; Stop 03/11/19 at 08:59 Lorazepam (Ativan) 4 mg PRN Q1HR PRN PO For CIWA 8-14; Start 03/05/19 at 11:00 Lorazepam (Ativan Inj) 2 mg PRN Q1HR PRN IV For CIWA 8-14; Start 03/05/19 at 11:00 Lorazepam (Ativan Inj) 2 mg PRN Q15MIN PRN IV SEE COMMENTS; Start 03/05/19 at 11:00 Lorazepam (Ativan Inj) 4 mg PRN Q15MIN PRN IV SEE COMMENTS; Start 03/05/19 at 11:00 Labetalol HCl (Trandate) 200 mg BID PO Last administered on 03/06/19at 20:48; Start 03/05/19 at 11:45 Lidocaine HCl (Xylocaine-Mpf 1% 2ml Vial) 2 ml STK-MED ONCE .ROUTE ; Start 03/06/19 at 07:46; Stop 03/06/19 at 07:47; Status DC Iohexol (Omnipaque 300 Mg/ml) 100 ml STK-MED ONCE .ROUTE ; Start 03/06/19 at 07:46; Stop 03/06/19 at 07:47; Status DC Heparin Sodium/ Sodium Chloride 1,000 ml @ As Directed STK-MED ONCE .ROUTE ; S tart 03/06/19 at 07:46; Stop 03/06/19 at 07:47; Status DC Lidocaine/Sodium Bicarbonate (Buffered Lidocaine 1%) 3 ml 1X ONCE INJ Last administered on 03/06/19at 08:37; Start 03/06/19 at 08:15; Stop 03/06/19 at 08:18; Status DC Midazolam HCl (Versed) 5 mg STK-MED ONCE .ROUTE ; Start 03/06/19 at 10:30; Stop 03/06/19 at 10:31; Status DC Fentanyl Citrate (Fentanyl 2ml Vial) 100 mcg STK-MED ONCE .ROUTE ; Start 03/06/19 at 10:30; Stop 03/06/19 at 10:31; Status DC Lidocaine HCl (Lidocaine 1% 20ml Vial) 20 ml STK-MED ONCE .ROUTE ; Start 03/06/19 at 10:44; Stop 03/06/19 at 10:45; Status DC Heparin Sodium/ Sodium Chloride 500 ml @ As Directed STK-MED ONCE .ROUTE ; Start 03/06/19 at 10:44; Stop 03/06/19 at 10:45; Status DC Ondansetron HCl (Zofran) 4 mg PRN Q6HRS PRN IV NAUSEA/VOMITING; Start 03/06/19 at 11:15; Stop 03/06/19 at 21:00; Status DC Fentanyl Citrate (Fentanyl 2ml Vial) 25 mcg PRN Q5MIN PRN IV MILD PAIN 1-3; Start 03/06/19 at 11:15; Stop 03/06/19 at 21:00; Status DC Fentanyl Citrate (Fentanyl 2ml Vial) 50 mcg PRN Q5MIN PRN IV MODERATE TO SEVERE PAIN; Start 03/06/19 at 11:15; Stop 03/06/19 at 21:00; Status DC Morphine Sulfate (Morphine Sulfate) 1 mg PRN Q10MIN PRN IV SEVERE PAIN 7-10; Start 03/06/19 at 11:15; Stop 03/06/19 at 21:00; Status DC Ringer's Solution 1,000 ml @ 30 mls/hr Q24H IV ; Start 03/06/19 at 11:30; Stop 03/06/19 at 15:51; Status DC Hydromorphone HCl (Dilaudid) 0.5 mg PRN Q10MIN PRN IV SEV PAIN, Second choice; Start 03/06/19 at 11:15; Stop 03/06/19 at 21:00; Status DC Prochlorperazine Edisylate (Compazine) 5 mg PACU PRN PRN IV NAUSEA, MRX1; Start 03/06/19 at 11:15; Stop 03/06/19 at 21:00; Status DC Propofol 60 ml @ As Directed STK-MED ONCE IV ; Start 03/06/19 at 11:09; Stop 03/06/19 at 11:10; Status DC Midazolam HCl (Versed) 2 mg STK-MED ONCE .ROUTE ; Start 03/06/19 at 11:10; Stop 03/06/19 at 11:11; Status DC Fentanyl Citrate (Fentanyl 2ml Vial) 100 mcg STK-MED ONCE .ROUTE ; Start 03/06/19 at 11:10; Stop 03/06/19 at 11:11; Status DC Heparin Sodium/ Sodium Chloride (HEPARIN for ARTERIAL LINE FLUSH) 1,000 unit 1X ONCE IART Last administered on 03/06/19at 11:57; Start 03/06/19 at 11:45; Stop 03/06/19 at 11:48; Status DC Heparin Sodium/ Sodium Chloride (HEPARIN for ARTERIAL LINE FLUSH) 1,000 unit 1X ONCE IART Last administered on 03/06/19at 11:58; Start 03/06/19 at 11:45; Stop 03/06/19 at 11:48; Status DC Iohexol (Omnipaque 300 Mg/ml) 100 ml 1X ONCE IART Last administered on 03/06/19at 11:58; Start 03/06/19 at 11:45; Stop 03/06/19 at 11:48; Status DC Lidocaine HCl (Lidocaine 1% 20ml Vial) 20 ml 1X ONCE INJ Last administered on 03/06/19at 11:58; Start 03/06/19 at 11:45; Stop 03/06/19 at 11:48; Status DC Info (CONTRAST GIVEN -- Rx MONITORING) 1 each PRN DAILY PRN MC SEE COMMENTS; Start 03/06/19 at 12:00; Stop 03/08/19 at 11:59 Sodium Chloride (Normal Saline Flush) 3 ml QSHIFT PRN IV AFTER MEDS AND BLOOD DRAWS; Start 03/06/19 at 13:15 Nitroglycerin (Nitrostat) 0.4 mg PRN Q5MIN PRN SL CHEST PAIN; Start 03/06/19 at 13:15 Sodium Chloride 1,000 ml @ 1,000 mls/hr Q1H PRN IV hypotension; Start 03/06/19 at 14:22; Stop 03/06/19 at 20:21; Status DC Albumin Human 200 ml @ 200 mls/hr 1X PRN PRN IV Hypotension; Start 03/06/19 at 14:30; Stop 03/06/19 at 20:29; Status DC Sodium Chloride (Normal Saline Flush) 10 ml 1X PRN PRN IV AP catheter pack; Start 03/06/19 at 14:30; Stop 03/07/19 at 14:29 Sodium Chloride (Normal Saline Flush) 10 ml 1X PRN PRN IV MATERIAL WORKER catheter pack; Start 03/06/19 at 14:30; Stop 03/07/19 at 14:29 Sodium Chloride 1,000 ml @ 400 mls/hr Q2H30M PRN IV PATENCY; Start 03/06/19 at 14:22; Stop 03/07/19 at 02:21; Status DC Info (PHARMACY MONITORING -- do not chart) 1 each PRN DAILY PRN MC SEE TORY TS; Start 03/06/19 at 14:30; Status UNV Info (PHARMACY MONITORING -- do not chart) 1 each PRN DAILY PRN MC SEE COMMENTS; Start 03/06/19 at 14:30 Sodium Chloride 1,000 ml @ 1,000 mls/hr Q1H PRN IV hypotension; Start 03/07/19 at 07:31; Stop 03/07/19 at 13:30 Albumin Human 200 ml @ 200 mls/hr 1X PRN PRN IV Hypotension; Start 03/07/19 at 07:45; Stop 03/07/19 at 13:44 Acetaminophen (Tylenol) 500 mg 1X PRN PRN PO MILD PAIN / TEMP; Start 03/07/19 at 07:45; Stop 03/08/19 at 07:44 Diphenhydramine HCl (Benadryl) 25 mg 1X PRN PRN IV ITCHING; Start 03/07/19 at 07:45; Stop 03/08/19 at 07:44 Diphenhydramine HCl (Benadryl) 25 mg 1X PRN PRN IV ITCHING; Start 03/07/19 at 07:45; Stop 03/08/19 at 07:44 Sodium Chloride (Normal Saline Flush) 10 ml 1X PRN PRN IV AP catheter pack; Start 03/07/19 at 07:45; Stop 03/08/19 at 07:44 Sodium Chloride (Normal Saline Flush) 10 ml 1X PRN PRN IV MATERIAL WORKER catheter pack; Start 03/07/19 at 07:45; Stop 03/08/19 at 07:44 Sodium Chloride 1,000 ml @ 400 mls/hr Q2H30M PRN IV PATENCY; Start 03/07/19 at 07:31; Stop 03/07/19 at 19:30 Info (PHARMACY MONITORING -- do not chart) 1 each PRN DAILY PRN MC SEE COMMENTS; Start 03/07/19 at 07:45; Status UNV Vitals/I & O Vital Sign - Last 24 Hours 03/06/19 03/06/19 03/06/19 03/06/19 12:00 12:07 12:30 12:30 Temp 97.9 98.1 97.9 98.1 Pulse 78 76 78 Resp 12 14 16 B/P (MAP) 132/84 (100) 132/84 143/95 (111) Pulse Ox 99 97 100 O2 Delivery Nasal Cannula Nasal Cannula Nasal Cannula Nasal Cannula O2 Flow Rate 2.0 2 2.0 2.0 03/06/19 03/06/19 03/06/19 03/06/19 13:00 14:00 15:00 15:22 Temp 98.1 97.9 97.9 98.1 97.9 97.9 Pulse 79 80 80 82 Resp 16 18 18 B/P (MAP) 141/100 (114) 152/101 (118) 149/104 (119) 149/104 Pulse Ox 96 98 97 O2 Delivery Room Air Room Air Room Air 03/06/19 03/06/19 03/06/19 03/06/19 15:23 15:23 15:30 15:37 Temp 98.7 98.7 Pulse 82 82 80 Resp 18 B/P (MAP) 149/104 149/104 156/104 (121) Pulse Ox 99 O2 Delivery Room Air Room Air 03/06/19 03/06/19 03/06/19 03/06/19 16:00 19:00 20:16 20:20 Temp 98.7 98.0 98.7 98.0 Pulse 73 75 78 Resp 18 25 B/P (MAP) 128/87 (101) 136/80 (98) 138/91 (107) Pulse Ox 96 98 O2 Delivery Room Air Room Air Room Air Room Air 03/06/19 03/06/19 03/06/19 03/06/19 20:48 21:21 22:10 23:07 Temp 97.9 97.9 Pulse 78 77 74 Resp 17 B/P (MAP) 138/91 116/79 110/68 (82) Pulse Ox 97 O2 Delivery Room Air Room Air 03/07/19 03/07/19 03/07/19 03/07/19 00:30 01:02 03:03 05:57 Temp 98.1 98.1 Pulse 70 82 Resp 15 15 B/P (MAP) 117/77 (90) 132/73 Pulse Ox 97 O2 Delivery Room Air Room Air Room Air 03/07/19 07:00 Temp 98.3 98.3 Pulse 76 Resp 21 B/P (MAP) 138/91 (107) Pulse Ox 95 O2 Delivery Room Air Intake and Output 03/06/19 03/06/19 03/07/19 14:59 22:59 06:59 Intake Total 20 ml 240 ml 150 ml Output Total 500 ml Balance -480 ml 240 ml 150 ml VINCENT BRADFORD MD March 07, 2019 09:19
--- NOTE | 2019-03-07 09:50 | EKG ---
[facility] [address] [place] [address] Test Date: 2019-03-04 Test Time: 09:37:16 Pat Name: INES BERNAL Department: Room: 111 1 Gender: M Drier: SB : 1970 Requested By: ENA PEREZ Order Number: [id number] Reading MD: Ena Perez Measurements Intervals [place] Rate: 93 P: 116 DE: 166 QRS: 11 QRSD: 96 T: 174 QT: 398 QTc: 498 Interpretive Statements SINUS RHYTHM LVH WITH REPOLARIZATION ABNORMALITY PROLONGED QT ABNORMAL ECG Electronically Signed On 03-24-2019 12:40:55 CDT by Ena Perez
--- NOTE | 2019-03-07 11:25 | PDOC ---
SUBJECTIVE ROS Seen on HD , 2 nd treatment. No concerns or complaints voiced by pt OBJECTIVE Vital Signs Vital Signs Date Time Temp Pulse Resp B/P (MAP) Pulse Ox O2 Delivery O2 Flow Rate FiO2 03/07/19 08:00 Room Air 2.0 03/07/19 07:00 98.3 76 21 138/91 (107) 95 98.3 I & 0 Intake and Output 03/07/19 06:59 Intake Total 410 ml Output Total 500 ml Balance -90 ml Intake Oral 410 ml Output Urine Total 500 ml # Voids 1 PHYSICAL EXAM Physical Exam GEN: NAD HEN: Om moist NECK: supple CVS: RRR RESP: CTA, No acc muscle use GI: BS + ve, NO Bruit, Non Tender, Non Distended : No Miguel DIAGNOSIS/ASSESSMENT Assessment & Plan New Onset ESRD - secondary to hypertension and nephrosclerosis, Initiated HD 03/06, Tolerated well Seen on HD today( 2nd treatment) , Tolerating well Continue as ordered, Dw [employer] Account[employer] Access - currently Temp HD cath Ordered Tunnelled Dialysis cath for tomorrow SW for OP chair time Congestive heart failure, most probably acute on chronic, sudden onset. compensated currently NSTEMI- S/P Cardiac cath 03/06 Large coronary arteries with no angiographic evidence of coronary artery dise ase. Anemia- stable Per primary Accelerated hypertension: Blood pressure continues to be elevated. Start labetalol for better control. Renal arterial duplex report pending Cardiology managing Diabetes mellitus type 2: Per Primary Dw pt and RN COMMENT/RELEVANT DATA Meds Current Medications Medications (Trade) Dose Ordered Sig/Sakshi Start Time Stop Time Status Last Admin Dose Admin Acetaminophen (Tylenol) 500 mg 1X PRN PRN 03/07/19 07:45 03/08/19 07:44 Albumin Human 200 ml @ 200 mls/hr 1X PRN PRN 03/07/19 07:45 03/07/19 13:44 Albuterol/ Ipratropium (Duoneb) 3 ml RTQID 03/04/19 08:00 03/04/19 12:15 DC 03/04/19 07:57 3 ML Amlodipine Besylate (Norvasc) 10 mg DAILY 03/04/19 11:30 03/06/19 15:22 10 MG Aspirin (Karime Aspirin) 325 mg 1X ONCE 03/04/19 04:30 03/04/19 04:31 DC 03/04/19 04:30 325 MG Bumetanide (Bumex) 1 mg 1X ONCE 03/04/19 05:15 03/04/19 05:16 DC 03/04/19 05:23 1 MG Clonidine HCl (Catapres) 0.2 mg Q8HRS 03/05/19 14:00 03/07/19 05:57 0.2 MG Dextrose (Dextrose 50%-Water Syringe) 12.5 gm PRN Q15MIN PRN 03/04/19 05:00 Diphenhydramine HCl (Benadryl) 25 mg 1X PRN PRN 03/07/19 07:45 03/08/19 07:44 Fentanyl Citrate (Fentanyl 2ml Vial) 100 mcg STK-MED ONCE 03/06/19 11:10 03/06/19 11:11 DC Folic Acid (Folic Acid) 1 mg DAILY 03/06/19 09:00 03/06/19 15:21 1 MG Heparin Sodium (Porcine) (Heparin Sodium) 2,650 unit PRN Q6HRS PRN 03/05/19 05:00 03/07/19 11:17 DC 03/05/19 05:07 2,650 UNIT Heparin Sodium/ Dextrose 500 ml @ 0 mls/hr CONT PRN 03/04/19 05:15 03/06/19 15:54 DC 03/06/19 08:23 30 MLS/HR Heparin Sodium/ Sodium Chloride (HEPARIN for ARTERIAL LINE FLUSH) 1,000 unit 1X ONCE 03/06/19 11:45 03/06/19 11:48 DC 03/06/19 11:58 1,000 UNIT Hydralazine HCl (Apresoline Inj) 20 mg PRN Q4HRS PRN 03/04/19 18:30 03/05/19 08:27 20 MG Hydromorphone HCl (Dilaudid) 0.5 mg PRN Q10MIN PRN 03/06/19 11:15 03/06/19 21:00 DC Info (Anti-Coagulation Monitoring By Pharmacy) 1 each PRN DAILY PRN 03/04/19 12:30 03/07/19 11:18 DC 03/05/19 14:30 1 EACH Info (CONTRAST GIVEN -- Rx MONITORING) 1 each PRN DAILY PRN 03/06/19 12:00 03/08/19 11:59 Info (PHARMACY MONITORING -- do not chart) 1 each PRN DAILY PRN 03/07/19 07:45 UNV Insulin Human Lispro (HumaLOG) 0-5 UNITS TIDWMEALS 03/04/19 08:00 Iohexol (Omnipaque 300 Mg/ml) 100 ml 1X ONCE 03/06/19 11:45 03/06/19 11:48 DC 03/06/19 11:58 127 ML Labetalol HCl (Normodyne Iv Push) 10 mg 1X ONCE 03/04/19 05:00 03/04/19 05:01 DC 03/04/19 05:40 10 MG Labetalol HCl (Trandate) 200 mg BID 03/05/19 11:45 03/06/19 20:48 200 MG Lidocaine HCl (Lidocaine 1% 20ml Vial) 20 ml 1X ONCE 03/06/19 11:45 03/06/19 11:48 DC 03/06/19 11:58 18 ML Lidocaine HCl (Xylocaine-Mpf 1% 2ml Vial) 2 ml STK-MED ONCE 03/06/19 07:46 03/06/19 07:47 DC Lidocaine/Sodium Bicarbonate (Buffered Lidocaine 1%) 3 ml 1X ONCE 03/06/19 08:15 03/06/19 08:18 DC 03/06/19 08:37 3 ML Lorazepam (Ativan Inj) 4 mg PRN Q15MIN PRN 03/05/19 11:00 Lorazepam (Ativan) 4 mg PRN Q1HR PRN 03/05/19 11:00 Midazolam HCl (Versed) 2 mg STK-MED ONCE 03/06/19 11:10 03/06/19 11:11 DC Morphine Sulfate (Morphine Sulfate) 1 mg PRN Q10MIN PRN 03/06/19 11:15 03/06/19 21:00 DC Nitroglycerin (Nitro-Bid Oint) 1 inch 1X ONCE 03/04/19 04:30 03/04/19 04:31 DC 03/04/19 04:31 1 INCH Nitroglycerin (Nitrostat) 0.4 mg PRN Q5MIN PRN 03/06/19 13:15 Ondansetron HCl (Zofran) 4 mg PRN Q6HRS PRN 03/06/19 11:15 03/06/19 21:00 DC Potassium Chloride (Klor-Con) 20 meq 1X ONCE 03/04/19 05:15 03/04/19 05:16 DC 03/04/19 05:25 20 MEQ Prochlorperazine Edisylate (Compazine) 5 mg PACU PRN PRN 03/06/19 11:15 03/06/19 21:00 DC Propofol 60 ml @ As Directed STK-MED ONCE 03/06/19 11:09 03/06/19 11:10 DC Ringer's Solution 1,000 ml @ 30 mls/hr Q24H 03/06/19 11:30 03/06/19 15:51 DC Sodium Chloride 1,000 ml @ 400 mls/hr Q2H30M PRN 03/07/19 07:31 03/07/19 19:30 Sodium Chloride (Normal Saline Flush) 10 ml 1X PRN PRN 03/07/19 07:45 03/08/19 07:44 Thiamine HCl 100 mg DAILY 03/06/19 09:00 03/11/19 08:59 Lab Laboratory Tests Test 03/06/19 13:00 03/06/19 15:21 03/06/19 18:03 03/06/19 20:46 Heparin Anti-Xa Act, Unfractionated 0.13 IU/mL (0.30-0.70) Hepatitis B Surface Antigen Nonreactive (Nonreactive) Hepatitis B Surface Antibody Nonreactive Hepatitis B Core Total Antibody Negative (Negative) Glucose (Fingerstick) 95 mg/dL (70-99) 114 mg/dL (70-99) 104 mg/dL (70-99) Test 03/07/19 04:05 White Blood Count 5.6 x10^3/uL (4.0-11.0) Red Blood Count 3.63 x10^6/uL (4.30-5.70) Hemoglobin 9.8 g/dL (13.0-17.5) Hematocrit 30.5 % (39.0-53.0) Mean Corpuscular Volume 84 fL (79-100) Mean Corpuscular Hemoglobin 27 pg (25-35) Mean Corpuscular Hemoglobin Concent 32 g/dL (31-37) Red Cell Distribution Width 14.4 % (11.5-14.5) Platelet Count 108 x10^3/uL (140-400) Neutrophils (%) (Auto) 66 % (31-73) Lymphocytes (%) (Auto) 19 % (24-48) Monocytes (%) (Auto) 11 % (0-9) Eosinophils (%) (Auto) 3 % (0-3) Basophils (%) (Auto) 1 % (0-3) Neutrophils # (Auto) 3.7 x10^3uL (1.8-7.7) Lymphocytes # (Auto) 1.1 x10^3/uL (1.0-4.8) Monocytes # (Auto) 0.6 x10^3/uL (0.0-1.1) Eosinophils # (Auto) 0.2 x10^3/uL (0.0-0.7) Basophils # (Auto) 0.0 x10^3/uL (0.0-0.2) Sodium Level 140 mmol/L (136-145) Potassium Level 3.9 mmol/L (3.5-5.1) Chloride Level 103 mmol/L (98-107) Carbon Dioxide Level 27 mmol/L (21-32) Anion Gap 10 (6-14) Blood Urea Nitrogen 30 mg/dL (8-26) Creatinine 3.9 mg/dL (0.7-1.3) Estimated GFR (Cockcroft-Gault) 20.0 BUN/Creatinine Ratio 8 (6-20) Glucose Level 113 mg/dL (70-99) Calcium Level 8.8 mg/dL (8.5-10.1) Total Bilirubin 0.2 mg/dL (0.2-1.0) Aspartate Amino Transf (AST/SGOT) 18 U/L (15-37) Alanine Aminotransferase (ALT/SGPT) 20 U/L (16-63) Alkaline Phosphatase 60 U/L (46-116) Total Protein 6.7 g/dL (6.4-8.2) Albumin 2.7 g/dL (3.4-5.0) Albumin/Globulin Ratio 0.7 (1.0-1.7) Results All relevant outside records, renal labs, imaging studies, telemetry/EKG's were reviewed. DON PENNINGTON MD March 07, 2019 11:25
[2019-03-07] MEDS: FOLIC ACID 1 MG TABLET. PO SCH (12:18)
[2019-03-07] MEDS: amLODIPine BESYLATE 10 MG TABLET PO SCH (12:20)
[2019-03-07] MEDS: LABETALOL HCL 200 MG TABLET PO SCH ×2 (12:20→20:46)
[2019-03-07 14:56] VITALS: BP 125/69
--- NOTE | 2019-03-07 15:10 | NUR ---
SS following up with discharge planning. SS received notification that pt would need OPHD set up. SS phoned and faxed referral to [facility], ext [phone]; fax [phone]. SS will continue to follow for chair time and discharge planning.
[2019-03-07 16:50] VITALS: BP 109/73
[2019-03-07 19:55] VITALS: BP 122/84
--- NOTE | 2019-03-07 21:53 | RAD ---
MR#: [id number] Date of Study: 03/04/2019 Ordering Physician: ENA NORRIS, Referring Physician: DANIA ZELAYA Tech: Johanny Cerrato BS, RTR, RDMS, RVT APPROVED REPORT Patient Location: IN-PATIENT Indications Uncontrolled HTN Risk Factors Hypertension Renal Artery Doppler Right Renal Artery Left Renal Arter y Proximal Proximal 108.2/19.1 cm/sec Mid 105.4/21.8 cm/secMid Distal 94.6/26.2 cm/secDistal 92.7/31.8 cm/sec Renal/Aorta Ratio 0.70Renal/Aorta Ratio 0.72 Prox. Resistive Index Prox. Resistive Index 0.82 Mid Resistive Index 0.79Mid Resistive Index Distal Resistive Index 0.72Distal Resistive Index 0.66 Renal Measurements RightLeft Kidney Bphvhj77.9 cm cmKidney Rtburb27.4 cm cm Right Additional FindingsLeft Additional Findings Findings Grayscale images of the bilateral kidneys demonstrate increased echogenicity likely related to medica l renal disease. There are 2 simple cyst noted on the right and left kidneys. On the right sided james ures approximately 1 cm and on the left side measures approximately 0.8 cm. Normal renal to aortic ratios are noted. The visualization of the proximal and middle right and left renal arteries respectively is limited. O verall the images are limited due to bowel gas obstruction. Nonetheless, no significant velocity acceleration is noted. Normal renal to aortic ratios. Overall no significant renal artery stenosis. Critical Notification Critical Value: No <Conclusion> 1. No significant renal artery stenosis 2. Simple cysts noted in the kidneys 3. Technically difficult study Signed by : Gildardo Riggs, Electronically Approved : 03/07/2019 21:52:53
[2019-03-07 23:53] VITALS: BP 124/86
[2019-03-08] VITALS (13 sets, daily range): BP systolic 122–158; BP diastolic 80–105
[2019-03-08] MEDS: cloNIDine HCL 0.2 MG TABLET PO SCH ×3 (06:00→19:46)
[2019-03-08 06:50] LABS: BASO # 0.1 x10^3/uL (0.0-0.2); BASO % 1 % (0-3); EOS # 0.2 x10^3/uL (0.0-0.7); EOS % 3 % (0-3); HEMATOCRIT 31.7 % (39.0-53.0); HEMOGLOBIN 10.3 g/dL (13.0-17.5); LYMPH # 1.5 x10^3/uL (1.0-4.8); LYMPH % 20 % (24-48); MEAN CORPUSCULAR HEMOGLOBIN 27 pg (25-35); MEAN CORPUSCULAR HGB CONC 33 g/dL (31-37); MEAN CORPUSCULAR VOLUME 83 fL (79-100); MONO # 0.9 x10^3/uL (0.0-1.1); MONO % 12 % (0-9); NEUT # 4.7 x10^3uL (1.8-7.7); NEUT % 65 % (31-73); PLATELET COUNT 108 x10^3/uL (140-400); WHITE BLOOD COUNT 7.3 x10^3/uL (4.0-11.0)
[2019-03-08 07:53] LABS: ALBUMIN 2.8 g/dL (3.4-5.0); ALBUMIN/GLOBULIN RATIO 0.7 (1.0-1.7); GFR 19.4; POTASSIUM 4.1 mmol/L (3.5-5.1); TOTAL BILIRUBIN 0.3 mg/dL (0.2-1.0)
[2019-03-08] MEDS: INSULIN LISPRO 300 UNITS/3 ML INSULN.PEN. SQ SCH ×3 (08:00→17:00)
[2019-03-08] MEDS ORDERED: ALPRAZolam 0.25 MG TABLET PO PRN (08:15)
[2019-03-08] MEDS: amLODIPine BESYLATE 10 MG TABLET PO SCH (09:00)
[2019-03-08] MEDS: LABETALOL HCL 200 MG TABLET PO SCH ×2 (09:00→19:47)
[2019-03-08 09:07] LABS: PROTHROMBIN TIME PATIENT 13.2 SEC (11.7-14.0)
[2019-03-08] MEDS: fentaNYL PF VIAL 100 MCG/2 ML VIAL IV PRN ×2 (09:19→18:13)
--- NOTE | 2019-03-08 09:47 | PDOC ---
PROGRESS NOTES Chief Complaint Chief Complaint NEW ESRD-outpatient dialysis being set up NSTEMI CHF Tobaccoism Alcohol use Anemia of chronic disease DM 2 - good control now Accelerated hypertension POA-resolved Noncompliance per documentation History of Present Illness History of Present Illness He has no complaints Transferred out of ICU for the above diagnosis-new dialysis, accelerated hypertension etc. We are waiting for chair time He already has a temporary HD catheter on the right subclavian PLAN: Will DC once chair time has been set up rx will be on chart Vitals Vitals Vital Signs Date Time Temp Pulse Resp B/P (MAP) Pulse Ox O2 Delivery O2 Flow Rate FiO2 03/08/19 09:19 18 99 Room Air 03/08/19 07:00 98.7 80 126/91 (103) 98.7 03/07/19 08:00 2.0 Physical Exam General: Alert, Oriented X3, Cooperative, No acute distress, mild distress Heart: Regular rate, Normal S1 Lungs: Clear Abdomen: Normal bowel sounds, Soft, No tenderness Extremities: No clubbing, No cyanosis Labs LABS Laboratory Tests Test 03/07/19 12:22 03/07/19 21:01 03/08/19 05:15 03/08/19 07:07 Glucose (Fingerstick) 90 mg/dL (70-99) 97 mg/dL (70-99) 126 mg/dL (70-99) White Blood Count 7.3 x10^3/uL (4.0-11.0) Red Blood Count 3.80 x10^6/uL (4.30-5.70) Hemoglobin 10.3 g/dL (13.0-17.5) Hematocrit 31.7 % (39.0-53.0) Mean Corpuscular Volume 83 fL (79-100) Mean Corpuscular Hemoglobin 27 pg (25-35) Mean Corpuscular Hemoglobin Concent 33 g/dL (31-37) Red Cell Distribution Width 14.0 % (11.5-14.5) Platelet Count 108 x10^3/uL (140-400) Neutrophils (%) (Auto) 65 % (31-73) Lymphocytes (%) (Auto) 20 % (24-48) Monocytes (%) (Auto) 12 % (0-9) Eosinophils (%) (Auto) 3 % (0-3) Basophils (%) (Auto) 1 % (0-3) Neutrophils # (Auto) 4.7 x10^3uL (1.8-7.7) Lymphocytes # (Auto) 1.5 x10^3/uL (1.0-4.8) Monocytes # (Auto) 0.9 x10^3/uL (0.0-1.1) Eosinophils # (Auto) 0.2 x10^3/uL (0.0-0.7) Basophils # (Auto) 0.1 x10^3/uL (0.0-0.2) Sodium Level 140 mmol/L (136-145) Potassium Level 4.1 mmol/L (3.5-5.1) Chloride Level 103 mmol/L (98-107) Carbon Dioxide Level 27 mmol/L (21-32) Anion Gap 10 (6-14) Blood Urea Nitrogen 31 mg/dL (8-26) Creatinine 4.0 mg/dL (0.7-1.3) Estimated GFR (Cockcroft-Gault) 19.4 BUN/Creatinine Ratio 8 (6-20) Glucose Level 111 mg/dL (70-99) Calcium Level 9.0 mg/dL (8.5-10.1) Total Bilirubin 0.3 mg/dL (0.2-1.0) Aspartate Amino Transf (AST/SGOT) 29 U/L (15-37) Alanine Aminotransferase (ALT/SGPT) 32 U/L (16-63) Alkaline Phosphatase 61 U/L (46-116) Total Protein 7.0 g/dL (6.4-8.2) Albumin 2.8 g/dL (3.4-5.0) Albumin/Globulin Ratio 0.7 (1.0-1.7) Test 03/08/19 08:25 Prothrombin Time 13.2 SEC (11.7-14.0) Prothromb Time International Ratio 1.0 (0.8-1.1) Activated Partial Thromboplast Time 27 SEC (24-38) Review of Systems Review of Systems A 14 point ROS was completed with the following noted as positive: Other systems reviewed and negative. \CONSTITUTIONAL: No fever or chills EYES: No recent changes SKIN: No rash or itching CARDIOVASCULAR: No chest pain, syncope, palpitations, or edema RESPIRATORY: No SOB or cough GASTROINTESTINAL: No nausea, vomiting or abdominal pain NEUROLOGICAL: No headaches or weakness ENDOCRINE: No cold or heat intolerance GENITOURINARY: No urgency or frequency of urination MUSCULOSKELETAL: No back pain or joint pain LYMPHATICS: No enlarged lymph nodes PSYCHIATRIC: No anxiety or depression Assessment and Plan Assessmemt and Plan Problems Medical Problems: (1) Elevated serum creatinine Status: Acute (2) Elevated troponin Status: Acute (3) Hypokalemia Status: Acute (4) Shortness of breath Status: Acute Comment Review of Relevant I have reviewed the following items susan (where applicable) has been applied. Labs Laboratory Tests Test 03/06/19 13:00 03/06/19 15:21 03/06/19 18:03 03/06/19 20:46 Heparin Anti-Xa Act, Unfractionated 0.13 IU/mL (0.30-0.70) Hepatitis B Surface Antigen Nonreactive (Nonreactive) Hepatitis B Surface Antibody Nonreactive Hepatitis B Core Total Antibody Negative (Negative) Glucose (Fingerstick) 95 mg/dL (70-99) 114 mg/dL (70-99) 104 mg/dL (70-99) Test 03/07/19 04:05 03/07/19 12:22 03/07/19 21:01 03/08/19 05:15 White Blood Count 5.6 x10^3/uL (4.0-11.0) 7.3 x10^3/uL (4.0-11.0) Red Blood Count 3.63 x10^6/uL (4.30-5.70) 3.80 x10^6/uL (4.30-5.70) Hemoglobin 9.8 g/dL (13.0-17.5) 10.3 g/dL (13.0-17.5) Hematocrit 30.5 % (39.0-53.0) 31.7 % (39.0-53.0) Mean Corpuscular Volume 84 fL (79-100) 83 fL (79-100) Mean Corpuscular Hemoglobin 27 pg (25-35) 27 pg (25-35) Mean Corpuscular Hemoglobin Concent 32 g/dL (31-37) 33 g/dL (31-37) Red Cell Distribution Width 14.4 % (11.5-14.5) 14.0 % (11.5-14.5) Platelet Count 108 x10^3/uL (140-400) 108 x10^3/uL (140-400) Neutrophils (%) (Auto) 66 % (31-73) 65 % (31-73) Lymphocytes (%) (Auto) 19 % (24-48) 20 % (24-48) Monocytes (%) (Auto) 11 % (0-9) 12 % (0-9) Eosinophils (%) (Auto) 3 % (0-3) 3 % (0-3) Basophils (%) (Auto) 1 % (0-3) 1 % (0-3) Neutrophils # (Auto) 3.7 x10^3uL (1.8-7.7) 4.7 x10^3uL (1.8-7.7) Lymphocytes # (Auto) 1.1 x10^3/uL (1.0-4.8) 1.5 x10^3/uL (1.0-4.8) Monocytes # (Auto) 0.6 x10^3/uL (0.0-1.1) 0.9 x10^3/uL (0.0-1.1) Eosinophils # (Auto) 0.2 x10^3/uL (0.0-0.7) 0.2 x10^3/uL (0.0-0.7) Basophils # (Auto) 0.0 x10^3/uL (0.0-0.2) 0.1 x10^3/uL (0.0-0.2) Sodium Level 140 mmol/L (136-145) 140 mmol/L (136-145) Potassium Level 3.9 mmol/L (3.5-5.1) 4.1 mmol/L (3.5-5.1) Chloride Level 103 mmol/L (98-107) 103 mmol/L (98-107) Carbon Dioxide Level 27 mmol/L (21-32) 27 mmol/L (21-32) Anion Gap 10 (6-14) 10 (6-14) Blood Urea Nitrogen 30 mg/dL (8-26) 31 mg/dL (8-26) Creatinine 3.9 mg/dL (0.7-1.3) 4.0 mg/dL (0.7-1.3) Estimated GFR (Cockcroft-Gault) 20.0 19.4 BUN/Creatinine Ratio 8 (6-20) 8 (6-20) Glucose Level 113 mg/dL (70-99) 111 mg/dL (70-99) Calcium Level 8.8 mg/dL (8.5-10.1) 9.0 mg/dL (8.5-10.1) Total Bilirubin 0.2 mg/dL (0.2-1.0) 0.3 mg/dL (0.2-1.0) Aspartate Amino Transf (AST/SGOT) 18 U/L (15-37) 29 U/L (15-37) Alanine Aminotransferase (ALT/SGPT) 20 U/L (16-63) 32 U/L (16-63) Alkaline Phosphatase 60 U/L (46-116) 61 U/L (46-116) Total Protein 6.7 g/dL (6.4-8.2) 7.0 g/dL (6.4-8.2) Albumin 2.7 g/dL (3.4-5.0) 2.8 g/dL (3.4-5.0) Albumin/Globulin Ratio 0.7 (1.0-1.7) 0.7 (1.0-1.7) Glucose (Fingerstick) 90 mg/dL (70-99) 97 mg/dL (70-99) Test 03/08/19 07:07 03/08/19 08:25 Glucose (Fingerstick) 126 mg/dL (70-99) Prothrombin Time 13.2 SEC (11.7-14.0) Prothromb Time International Ratio 1.0 (0.8-1.1) Activated Partial Thromboplast Time 27 SEC (24-38) Laboratory Tests Test 03/07/19 12:22 03/07/19 21:01 03/08/19 05:15 03/08/19 07:07 Glucose (Fingerstick) 90 mg/dL (70-99) 97 mg/dL (70-99) 126 mg/dL (70-99) White Blood Count 7.3 x10^3/uL (4.0-11.0) Red Blood Count 3.80 x10^6/uL (4.30-5.70) Hemoglobin 10.3 g/dL (13.0-17.5) Hematocrit 31.7 % (39.0-53.0) Mean Corpuscular Volume 83 fL (79-100) Mean Corpuscular Hemoglobin 27 pg (25-35) Mean Corpuscular Hemoglobin Concent 33 g/dL (31-37) Red Cell Distribution Width 14.0 % (11.5-14.5) Platelet Count 108 x10^3/uL (140-400) Neutrophils (%) (Auto) 65 % (31-73) Lymphocytes (%) (Auto) 20 % (24-48) Monocytes (%) (Auto) 12 % (0-9) Eosinophils (%) (Auto) 3 % (0-3) Basophils (%) (Auto) 1 % (0-3) Neutrophils # (Auto) 4.7 x10^3uL (1.8-7.7) Lymphocytes # (Auto) 1.5 x10^3/uL (1.0-4.8) Monocytes # (Auto) 0.9 x10^3/uL (0.0-1.1) Eosinophils # (Auto) 0.2 x10^3/uL (0.0-0.7) Basophils # (Auto) 0.1 x10^3/uL (0.0-0.2) Sodium Level 140 mmol/L (136-145) Potassium Level 4.1 mmol/L (3.5-5.1) Chloride Level 103 mmol/L (98-107) Carbon Dioxide Level 27 mmol/L (21-32) Anion Gap 10 (6-14) Blood Urea Nitrogen 31 mg/dL (8-26) Creatinine 4.0 mg/dL (0.7-1.3) Estimated GFR (Cockcroft-Gault) 19.4 BUN/Creatinine Ratio 8 (6-20) Glucose Level 111 mg/dL (70-99) Calcium Level 9.0 mg/dL (8.5-10.1) Total Bilirubin 0.3 mg/dL (0.2-1.0) Aspartate Amino Transf (AST/SGOT) 29 U/L (15-37) Alanine Aminotransferase (ALT/SGPT) 32 U/L (16-63) Alkaline Phosphatase 61 U/L (46-116) Total Protein 7.0 g/dL (6.4-8.2) Albumin 2.8 g/dL (3.4-5.0) Albumin/Globulin Ratio 0.7 (1.0-1.7) Test 03/08/19 08:25 Prothrombin Time 13.2 SEC (11.7-14.0) Prothromb Time International Ratio 1.0 (0.8-1.1) Activated Partial Thromboplast Time 27 SEC (24-38) Microbiology 03/04/19 Blood Culture - Preliminary, Resulted NO GROWTH AFTER 4 DAYS Medications Current Medications Albuterol/ Ipratropium (Duoneb) 3 ml 1X ONCE NEB Last administered on 03/04/19at 04:20; Start 03/04/19 at 04:15; Stop 03/04/19 at 04:26; Status DC Nitroglycerin (Nitro-Bid Oint) 1 inch 1X ONCE TP Last administered on 9at 04:31; Start 03/04/19 at 04:30; Stop 03/04/19 at 04:31; Status DC Aspirin (Karime Aspirin) 325 mg 1X ONCE PO Last administered on 03/04/19at 04:30; Start 03/04/19 at 04:30; Stop 03/04/19 at 04:31; Status DC Labetalol HCl (Normodyne Iv Push) 10 mg 1X ONCE IVP Last administered on 03/04/19at 05:40; Start 03/04/19 at 05:00; Stop 03/04/19 at 05:01; Status DC Ondansetron HCl (Zofran) 4 mg PRN Q8HRS PRN IV NAUSEA/VOMITING; Start 03/04/19 at 05:00; Stop 03/05/19 at 04:59; Status DC Fentanyl Citrate (Fentanyl 2ml Vial) 50 mcg PRN Q2HR PRN IV PAIN Last administered on 03/08/19at 09:19; Start 03/04/19 at 05:00 Albuterol/ Ipratropium (Duoneb) 3 ml RTQID NEB Last administered on 03/04/19at 07:57; Start 03/04/19 at 08:00; Stop 03/04/19 at 12:15; Status DC Insulin Human Lispro (HumaLOG) 0-5 UNITS TIDWMEALS SQ ; Start 03/04/19 at 08:00 Dextrose (Dextrose 50%-Water Syringe) 12.5 gm PRN Q15MIN PRN IV SEE COMMENTS; Start 03/04/19 at 05:00 Hydralazine HCl (Apresoline Inj) 20 mg 1X ONCE IVP Last administered on 02/15 06/05at 06:09; Start 03/04/19 at 05:15; Stop 03/04/19 at 05:16; Status DC Heparin Sodium (Porcine) (Heparin Sodium) 4,000 unit 1X ONCE IV Last administered on 03/04/19at 05:24; Start 03/04/19 at 05:15; Stop 03/04/19 at 05:16; Status DC Heparin Sodium/ Dextrose 500 ml @ 0 mls/hr CONT PRN IV SEE I/O RECORD Last administered on 03/06/19at 08:23; Start 03/04/19 at 05:15; Stop 03/06/19 at 15:54; Status DC Potassium Chloride (Klor-Con) 20 meq 1X ONCE PO Last administered on 03/04/19at 05:25; Start 03/04/19 at 05:15; Stop 03/04/19 at 05:16; Status DC Bumetanide (Bumex) 1 mg 1X ONCE IV Last administered on 03/04/19at 05:23; Start 03/04/19 at 05:15; Stop 03/04/19 at 05:16; Status DC Amlodipine Besylate (Norvasc) 10 mg DAILY PO Last administered on 03/07/19at 1 2:20; Start 03/04/19 at 11:30 Hydralazine HCl (Apresoline Inj) 10 mg PRN Q6HRS PRN IVP ELEVATED BP Last administered on 03/04/19at 17:24; Start 03/04/19 at 11:30; Stop 03/04/19 at 18:28; Status DC Info (Anti-Coagulation Monitoring By Pharmacy) 1 each PRN DAILY PRN MC SEE COMMENTS Last administered on 03/05/19at 14:30; Start 03/04/19 at 12:30; Stop 03/07/19 at 11:18; Status DC Hydralazine HCl (Apresoline Inj) 20 mg PRN Q4HRS PRN IVP ELEVATED BP Last administered on 03/05/19at 08:27; Start 03/04/19 at 18:30 Heparin Sodium (Porcine) (Heparin Sodium) 2,650 unit PRN Q6HRS PRN IV FOR UFH LEVEL LESS THAN 0.2 Last administered on 03/05/19at 05:07; Start 03/05/19 at 05:00; Stop 03/07/19 at 11:17; Status DC Clonidine HCl (Catapres) 0.2 mg Q8HRS PO Last administered on 03/07/19at 20:46; Start 03/05/19 at 14:00 Folic Acid (Folic Acid) 1 mg DAILY PO Last administered on 03/07/19at 12:18; Start 03/06/19 at 09:00 Thiamine HCl 100 mg DAILY IM ; Start 03/06/19 at 09:00; Stop 03/08/19 at 08:08; Status DC Lorazepam (Ativan) 4 mg PRN Q1HR PRN PO For CIWA 8-14; Start 03/05/19 at 11:00 Lorazepam (Ativan Inj) 2 mg PRN Q1HR PRN IV For CIWA 8-14; Start 03/05/19 at 11:00 Lorazepam (Ativan Inj) 2 mg PRN Q15MIN PRN IV SEE COMMENTS; Start 03/05/19 at 11:00 Lorazepam (Ativan Inj) 4 mg PRN Q15MIN PRN IV SEE COMMENTS; Start 03/05/19 at 11:00 Labetalol HCl (Trandate) 200 mg BID PO Last administered on 03/07/19at 20:46; Start 03/05/19 at 11:45 Lidocaine HCl (Xylocaine-Mpf 1% 2ml Vial) 2 ml STK-MED ONCE .ROUTE ; Start 03/06/19 at 07:46; Stop 03/06/19 at 07:47; Status DC Iohexol (Omnipaque 300 Mg/ml) 100 ml STK-MED ONCE .ROUTE ; Start 03/06/19 at 07:46; Stop 03/06/19 at 07:47; Status DC Heparin Sodium/ Sodium Chloride 1,000 ml @ As Directed STK-MED ONCE .ROUTE ; Start 03/06/19 at 07:46; Stop 03/06/19 at 07:47; Status DC Lidocaine/Sodium Bicarbonate (Buffered Lidocaine 1%) 3 ml 1X ONCE INJ Last administered on 03/06/19at 08:37; Start 03/06/19 at 08:15; Stop 03/06/19 at 08:18; Status DC Midazolam HCl (Versed) 5 mg STK-MED ONCE .ROUTE ; Start 03/06/19 at 10:30; Stop 03/06/19 at 10:31; Status DC Fentanyl Citrate (Fentanyl 2ml Vial) 100 mcg STK-MED ONCE .ROUTE ; Start 03/06/19 at 10:30; Stop 03/06/19 at 10:31; Status DC Lidocaine HCl (Lidocaine 1% 20ml Vial) 20 ml STK-MED ONCE .ROUTE ; Start 03/06/19 at 10:44; Stop 03/06/19 at 10:45; Status DC Heparin Sodium/ Sodium Chloride 500 ml @ As Directed STK-MED ONCE .ROUTE ; Start 03/06/19 at 10:44; Stop 03/06/19 at 10:45; Status DC Ondansetron HCl (Zofran) 4 mg PRN Q6HRS PRN IV NAUSEA/VOMITING; Start 03/06/19 at 11:15; Stop 03/06/19 at 21:00; Status DC Fentanyl Citrate (Fentanyl 2ml Vial) 25 mcg PRN Q5MIN PRN IV MILD PAIN 1-3; Start 03/06/19 at 11:15; Stop 03/06/19 at 21:00; Status DC Fentanyl Citrate (Fentanyl 2ml Vial) 50 mcg PRN Q5MIN PRN IV MODERATE TO SEVERE PAIN; Start 03/06/19 at 11:15; Stop 03/06/19 at 21:00; Status DC Morphine Sulfate (Morphine Sulfate) 1 mg PRN Q10MIN PRN IV SEVERE PAIN 7-10; Start 03/06/19 at 11:15; Stop 03/06/19 at 21:00; Status DC Ringer's Solution 1,000 ml @ 30 mls/hr Q24H IV ; Start 03/06/19 at 11:30; Stop 03/06/19 at 15:51; Status DC Hydromorphone HCl (Dilaudid) 0.5 mg PRN Q10MIN PRN IV SEV PAIN, Second choice; Start 03/06/19 at 11:15; Stop 03/06/19 at 21:00; Status DC Prochlorperazine Edisylate (Compazine) 5 mg PACU PRN PRN IV NAUSEA, MRX1; Start 03/06/19 at 11:15; Stop 03/06/19 at 21:00; Status DC Propofol 60 ml @ As Directed STK-MED ONCE IV ; Start 03/06/19 at 11:09; Stop 03/06/19 at 11:10; Status DC Midazolam HCl (Versed) 2 mg STK-MED ONCE .ROUTE ; Start 03/06/19 at 11:10; Stop 03/06/19 at 11:11; Status DC Fentanyl Citrate (Fentanyl 2ml Vial) 100 mcg STK-MED ONCE .ROUTE ; Start 03/06/19 at 11:10; Stop 03/06/19 at 11:11; Status DC Heparin Sodium/ Sodium Chloride (HEPARIN for ARTERIAL LINE FLUSH) 1,000 unit 1X ONCE IART Last administered on 03/06/19at 11:57; Start 03/06/19 at 11:45; Stop 03/06/19 at 11:48; Status DC Heparin Sodium/ Sodium Chloride (HEPARIN for ARTERIAL LINE FLUSH) 1,000 unit 1X ONCE IART Last administered on 03/06/19at 11:58; Start 03/06/19 at 11:45; Stop 03/06/19 at 11:48; Status DC Iohexol (Omnipaque 300 Mg/ml) 100 ml 1X ONCE IART Last administered on 03/06/19at 11:58; Start 03/06/19 at 11:45; Stop 03/06/19 at 11:48; Status DC Lidocaine HCl (Lidocaine 1% 20ml Vial) 20 ml 1X ONCE INJ Last administered on 03/06/19at 11:58; Start 03/06/19 at 11:45; Stop 03/06/19 at 11:48; Status DC Info (CONTRAST GIVEN -- Rx MONITORING) 1 each PRN DAILY PRN MC SEE COMMENTS; Start 03/06/19 at 12:00; Stop 03/08/19 at 11:59 Sodium Chloride (Normal Saline Flush) 3 ml QSHIFT PRN IV AFTER MEDS AND BLOOD DRAWS; Start 03/06/19 at 13:15; Status Cancel Nitroglycerin (Nitrostat) 0.4 mg PRN Q5MIN PRN SL CHEST PAIN; Start 03/06/19 at 13:15 Sodium Chloride 1,000 ml @ 1,000 mls/hr Q1H PRN IV hypotension; Start 03/06/19 at 14:22; Stop 03/06/19 at 20:21; Status DC Albumin Human 200 ml @ 200 mls/hr 1X PRN PRN IV Hypotension; Start 03/06/19 at 14:30; Stop 03/06/19 at 20:29; Status DC Sodium Chloride (Normal Saline Flush) 10 ml 1X PRN PRN IV AP catheter pack; Start 03/06/19 at 14:30; Stop 03/07/19 at 14:29; Status Cancel Sodium Chloride (Normal Saline Flush) 10 ml 1X PRN PRN 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; Start 03/06/19 at 14:30; Stop 03/07/19 at 14:29; Status Cancel Sodium Chloride 1,000 ml @ 400 mls/hr Q2H30M PRN IV PATENCY; Start 03/06/19 at 14:22; Stop 03/07/19 at 02:21; Status DC Info (PHARMACY MONITORING -- do not chart) 1 each PRN DAILY PRN MC SEE COMMENTS; Start 03/06/19 at 14:30; Status UNV Info (PHARMACY MONITORING -- do not chart) 1 each PRN DAILY PRN MC SEE COMMENTS; Start 03/06/19 at 14:30 Sodium Chloride 1,000 ml @ 1,000 mls/hr Q1H PRN IV hypotension; Start 03/07/19 at 07:31; Stop 03/07/19 at 13:30; Status DC Albumin Human 200 ml @ 200 mls/hr 1X PRN PRN IV Hypotension; Start 03/07/19 at 07:45; Stop 03/07/19 at 13:44; Status DC Acetaminophen (Tylenol) 500 mg 1X PRN PRN PO MILD PAIN / TEMP; Start 03/07/19 at 07:45; Stop 03/08/19 at 07:44; Status DC Diphenhydramine HCl (Benadryl) 25 mg 1X PRN PRN IV ITCHING; Start 03/07/19 at 07:45; Stop 03/08/19 at 07:44; Status DC Diphenhydramine HCl (Benadryl) 25 mg 1X PRN PRN IV ITCHING; Start 03/07/19 at 07:45; Stop 03/08/19 at 07:44; Status DC Sodium Chloride (Normal Saline Flush) 10 ml 1X PRN PRN IV AP catheter pack; Start 03/07/19 at 07:45; Stop 03/08/19 at 07:44; Status DC Sodium Chloride (Normal Saline Flush) 10 ml 1X PRN PRN 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; Start 03/07/19 at 07:45; Stop 03/08/19 at 07:44; Status DC Sodium Chloride 1,000 ml @ 400 mls/hr Q2H30M PRN IV PATENCY; Start 03/07/19 at 07:31; Stop 03/07/19 at 19:30; Status DC Info (PHARMACY MONITORING -- do not chart) 1 each PRN DAILY PRN MC SEE COMMENTS; Start 03/07/19 at 07:45; Status UNV Thiamine Mononitrate (Vitamin B-1) 100 mg DAILY PO ; Start 03/08/19 at 09:00 Alprazolam (Xanax) 0.25 mg PRN Q8HRS PRN PO ANXIETY / AGITATION; Start 03/08/19 at 08:15 Vitals/I & O Vital Sign - Last 24 Hours 03/07/19 03/07/19 03/07/19 03/07/19 12:20 12:20 14:54 14:56 Temp 97.6 97.6 Pulse 72 72 74 78 Resp 28 B/P (MAP) 140/96 140/96 125/69 125/69 (87) Pulse Ox 95 O2 Delivery Room Air 03/07/19 03/07/19 03/07/19 03/07/19 16:50 19:55 20:46 20:46 Temp 98.4 97.6 98.4 97.6 Pulse 80 72 72 72 Resp 20 20 B/P (MAP) 109/73 (85) 122/84 (97) 122/84 122/84 Pulse Ox 97 98 O2 Delivery Room Air Room Air 03/07/19 03/07/19 03/07/19 03/08/19 20:47 21:27 23:53 03:10 Temp 98.1 98.1 98.1 98.1 Pulse 82 80 Resp 18 18 18 18 B/P (MAP) 124/86 (99) 132/81 (98) Pulse Ox 96 98 95 95 O2 Delivery Room Air Room Air Room Air Room Air 03/08/19 03/08/19 07:00 09:19 Temp 98.7 98.7 Pulse 80 Resp 18 18 B/P (MAP) 126/91 (103) Pulse Ox 99 99 O2 Delivery Room Air Room Air Intake and Output 03/07/19 03/07/19 03/08/19 14:59 22:59 06:59 Intake Total 900 ml 300 ml 450 ml Balance 900 ml 300 ml 450 ml PAT CASILLAS MD March 08, 2019 09:47
[2019-03-08] MEDS ORDERED: THIA100T22 PO (09:49)
[2019-03-08] MEDS ORDERED: AMLO10TA8 PO (09:49)
[2019-03-08] MEDS ORDERED: NITR0.4T SL (09:49)
[2019-03-08] MEDS ORDERED: LABE200T4 PO (09:49)
[2019-03-08] MEDS ORDERED: FOLI1TAB16 PO (09:49)
[2019-03-08] MEDS ORDERED: CLON0.2T10 PO (09:49)
--- NOTE | 2019-03-08 09:52 | PDOC3 ---
Discharge Summary Visit Information Date of Admission: March 04, 2019 Date of Discharge: March 08, 2019 Admitting Diagnosis Comment: NEW ESRD-outpatient dialysis being set up NSTEMI CHF Tobaccoism Alcohol use Anemia of chronic disease no DM Accelerated hypertension POA-resolved Noncompliance per documentation Final Diagnosis Problems Medical Problems: (1) Elevated serum creatinine Status: Acute (2) Elevated troponin Status: Acute (3) Hypokalemia Status: Acute (4) Shortness of breath Status: Acute Brief Hospital Course Allergies Allergies Coded Allergies Type Severity Reaction Last Updated Verified No Known Drug Allergies 03/04/19 No Vital Signs Vital Signs Date Time Temp Pulse Resp B/P (MAP) Pulse Ox O2 Delivery O2 Flow Rate FiO2 03/08/19 09:19 18 99 Room Air 03/08/19 07:00 98.7 80 126/91 (103) 98.7 03/07/19 08:00 2.0 Lab Results Laboratory Tests Test 03/06/19 13:00 03/06/19 15:21 03/06/19 18:03 03/06/19 20:46 Heparin Anti-Xa Act, Unfractionated 0.13 IU/mL (0.30-0.70) Hepatitis B Surface Antigen Nonreactive (Nonreactive) Hepatitis B Surface Antibody Nonreactive Hepatitis B Core Total Antibody Negative (Negative) Glucose (Fingerstick) 95 mg/dL (70-99) 114 mg/dL (70-99) 104 mg/dL (70-99) Test 03/07/19 04:05 03/07/19 12:22 03/07/19 21:01 03/08/19 05:15 White Blood Count 5.6 x10^3/uL (4.0-11.0) 7.3 x10^3/uL (4.0-11.0) Red Blood Count 3.63 x10^6/uL (4.30-5.70) 3.80 x10^6/uL (4.30-5.70) Hemoglobin 9.8 g/dL (13.0-17.5) 10.3 g/dL (13.0-17.5) Hematocrit 30.5 % (39.0-53.0) 31.7 % (39.0-53.0) Mean Corpuscular Volume 84 fL (79-100) 83 fL (79-100) Mean Corpuscular Hemoglobin 27 pg (25-35) 27 pg (25-35) Mean Corpuscular Hemoglobin Concent 32 g/dL (31-37) 33 g/dL (31-37) Red Cell Distribution Width 14.4 % (11.5-14.5) 14.0 % (11.5-14.5) Platelet Count 108 x10^3/uL (140-400) 108 x10^3/uL (140-400) Neutrophils (%) (Auto) 66 % (31-73) 65 % (31-73) Lymphocytes (%) (Auto) 19 % (24-48) 20 % (24-48) Monocytes (%) (Auto) 11 % (0-9) 12 % (0-9) Eosinophils (%) (Auto) 3 % (0-3) 3 % (0-3) Basophils (%) (Auto) 1 % (0-3) 1 % (0-3) Neutrophils # (Auto) 3.7 x10^3uL (1.8-7.7) 4.7 x10^3uL (1.8-7.7) Lymphocytes # (Auto) 1.1 x10^3/uL (1.0-4.8) 1.5 x10^3/uL (1.0-4.8) Monocytes # (Auto) 0.6 x10^3/uL (0.0-1.1) 0.9 x10^3/uL (0.0-1.1) Eosinophils # (Auto) 0.2 x10^3/uL (0.0-0.7) 0.2 x10^3/uL (0.0-0.7) Basophils # (Auto) 0.0 x10^3/uL (0.0-0.2) 0.1 x10^3/uL (0.0-0.2) Sodium Level 140 mmol/L (136-145) 140 mmol/L (136-145) Potassium Level 3.9 mmol/L (3.5-5.1) 4.1 mmol/L (3.5-5.1) Chloride Level 103 mmol/L (98-107) 103 mmol/L (98-107) Carbon Dioxide Level 27 mmol/L (21-32) 27 mmol/L (21-32) Anion Gap 10 (6-14) 10 (6-14) Blood Urea Nitrogen 30 mg/dL (8-26) 31 mg/dL (8-26) Creatinine 3.9 mg/dL (0.7-1.3) 4.0 mg/dL (0.7-1.3) Estimated GFR (Cockcroft-Gault) 20.0 19.4 BUN/Creatinine Ratio 8 (6-20) 8 (6-20) Glucose Level 113 mg/dL (70-99) 111 mg/dL (70-99) Calcium Level 8.8 mg/dL (8.5-10.1) 9.0 mg/dL (8.5-10.1) Total Bilirubin 0.2 mg/dL (0.2-1.0) 0.3 mg/dL (0.2-1.0) Aspartate Amino Transf (AST/SGOT) 18 U/L (15-37) 29 U/L (15-37) Alanine Aminotransferase (ALT/SGPT) 20 U/L (16-63) 32 U/L (16-63) Alkaline Phosphatase 60 U/L (46-116) 61 U/L (46-116) Total Protein 6.7 g/dL (6.4-8.2) 7.0 g/dL (6.4-8.2) Albumin 2.7 g/dL (3.4-5.0) 2.8 g/dL (3.4-5.0) Albumin/Globulin Ratio 0.7 (1.0-1.7) 0.7 (1.0-1.7) Glucose (Fingerstick) 90 mg/dL (70-99) 97 mg/dL (70-99) Test 03/08/19 07:07 03/08/19 08:25 Glucose (Fingerstick) 126 mg/dL (70-99) Prothrombin Time 13.2 SEC (11.7-14.0) Prothromb Time International Ratio 1.0 (0.8-1.1) Activated Partial Thromboplast Time 27 SEC (24-38) Laboratory Tests Test 03/07/19 12:22 03/07/19 21:01 03/08/19 05:15 03/08/19 07:07 Glucose (Fingerstick) 90 mg/dL (70-99) 97 mg/dL (70-99) 126 mg/dL (70-99) White Blood Count 7.3 x10^3/uL (4.0-11.0) Red Blood Count 3.80 x10^6/uL (4.30-5.70) Hemoglobin 10.3 g/dL (13.0-17.5) Hematocrit 31.7 % (39.0-53.0) Mean Corpuscular Volume 83 fL (79-100) Mean Corpuscular Hemoglobin 27 pg (25-35) Mean Corpuscular Hemoglobin Concent 33 g/dL (31-37) Red Cell Distribution Width 14.0 % (11.5-14.5) Platelet Count 108 x10^3/uL (140-400) Neutrophils (%) (Auto) 65 % (31-73) Lymphocytes (%) (Auto) 20 % (24-48) Monocytes (%) (Auto) 12 % (0-9) Eosinophils (%) (Auto) 3 % (0-3) Basophils (%) (Auto) 1 % (0-3) Neutrophils # (Auto) 4.7 x10^3uL (1.8-7.7) Lymphocytes # (Auto) 1.5 x10^3/uL (1.0-4.8) Monocytes # (Auto) 0.9 x10^3/uL (0.0-1.1) Eosinophils # (Auto) 0.2 x10^3/uL (0.0-0.7) Basophils # (Auto) 0.1 x10^3/uL (0.0-0.2) Sodium Level 140 mmol/L (136-145) Potassium Level 4.1 mmol/L (3.5-5.1) Chloride Level 103 mmol/L (98-107) Carbon Dioxide Level 27 mmol/L (21-32) Anion Gap 10 (6-14) Blood Urea Nitrogen 31 mg/dL (8-26) Creatinine 4.0 mg/dL (0.7-1.3) Estimated GFR (Cockcroft-Gault) 19.4 BUN/Creatinine Ratio 8 (6-20) Glucose Level 111 mg/dL (70-99) Calcium Level 9.0 mg/dL (8.5-10.1) Total Bilirubin 0.3 mg/dL (0.2-1.0) Aspartate Amino Transf (AST/SGOT) 29 U/L (15-37) Alanine Aminotransferase (ALT/SGPT) 32 U/L (16-63) Alkaline Phosphatase 61 U/L (46-116) Total Protein 7.0 g/dL (6.4-8.2) Albumin 2.8 g/dL (3.4-5.0) Albumin/Globulin Ratio 0.7 (1.0-1.7) Test 03/08/19 08:25 Prothrombin Time 13.2 SEC (11.7-14.0) Prothromb Time International Ratio 1.0 (0.8-1.1) Activated Partial Thromboplast Time 27 SEC (24-38) Brief Hospital Course Mr. Cheng is a 48 old these -Stateless male who came in with accelerated hypertension needing 3 blood pressure meds which are rather not small doses to be started. Was in the ICU, also [place] I and now needing to be new dialysis ESRD and we're waiting for chair time. All Rx I have attached on file namely blood pressure meds at least 3 including Norvasc 10, clonidine, and labetalol consults performed: renal cardiology Procedures performed temporary dialysis catheter right subclavian 2 Notes today Patient seen and examined Discharge Information Condition at Discharge: Improved, Stable Follow Up: Weeks (nephro - new HD) Disposition/Orders: D/C to Home Scheduled Amlodipine Besylate (Amlodipine Besylate) 10 Mg Tablet, 10 MG PO DAILY for htn MDD 1, #90 Prescribed by: PAT CASILLAS on 03/08/19 0949 Clonidine Hcl (Catapres) 0.2 Mg Tablet, 0.2 MG PO Q8HRS for htn MDD 1, #90 Prescribed by: PAT CASILLAS on 03/08/19 0949 Folic Acid (Folic Acid) 1 Mg Tablet, 1 MG PO DAILY for mvi MDD 1, #30 Prescribed by: PAT CASILLAS on 03/08/19 0949 Labetalol Hcl (Labetalol Hcl) 200 Mg Tablet, 200 MG PO BID for htn MDD 1, #60 Prescribed by: PAT CASILLAS on 03/08/19 0949 Thiamine Mononitrate (Vitamin B-1) 100 Mg Tablet, 100 MG PO DAILY for mvi MDD 1, #30 Prescribed by: PAT CASILLAS on 03/08/19 0949 Scheduled PRN Nitroglycerin (Nitrostat) 0.4 Mg Tab.subl, 0.4 MG SL PRN Q5MIN PRN for CHEST PAIN MDD 1, #90 Prescribed by: PAT CASILLAS on 03/08/19 0949 PAT CASILLAS MD March 08, 2019 09:52
[2019-03-08] MEDS ORDERED: LIDOCAINE 1%/EPI 1:100,000 20 ML VIAL. ONE (10:09)
[2019-03-08] MEDS ORDERED: PROPOFOL 20 ML IV ONE (10:34)
[2019-03-08] MEDS ORDERED: LIDOCAINE 1%/EPI 1:100,000 20 ML VIAL. IJ ONE (10:45)
--- NOTE | 2019-03-08 10:53 | PDOC ---
SUBJECTIVE ROS Stable, post Tunneled Dialysis catheter earlier today OBJECTIVE Vital Signs Vital Signs Date Time Temp Pulse Resp B/P (MAP) Pulse Ox O2 Delivery O2 Flow Rate FiO2 03/08/19 09:19 18 99 Room Air 03/08/19 07:00 98.7 80 126/91 (103) 98.7 03/07/19 08:00 2.0 I & 0 Intake and Output 03/08/19 07:00 Intake Total 1650 ml Balance 1650 ml Intake Oral 1650 ml # Voids 5 PHYSICAL EXAM Physical Exam GEN: NAD HEN: Om moist NECK: supple CVS: RRR RESP: CTA, No acc muscle use GI: BS + ve, NO Bruit, Non Tender, Non Distended : No Miguel Tunelled Dialysis catheter Rt side DIAGNOSIS/ASSESSMENT Assessment & Plan New Onset ESRD - secondary to hypertension and nephrosclerosis, Initiated HD 03/06, 2 nd Tx 12/08 Continue TTS schedule while inpatient Access - Has Tunnelled Dialysis cath 03/08 SW for OP chair time Pt refusing AV access evaluation at this time He is also not interested in PD Congestive heart failure, most probably acute on chronic, sudden onset. compensated currently NSTEMI- S/P Cardiac cath 03/06 Large coronary arteries with no angiographic evidence of coronary artery disease. Anemia- stable Per primary Accelerated hypertension: Blood pressure continues to be elevated. Start labetalol for better control. Renal arterial duplex report No significant renal artery stenosis Cardiology managing Diabetes mellitus type 2: Per Primary Dw pt and RN COMMENT/RELEVANT DATA Meds Current Medications Medications (Trade) Dose Ordered Sig/Sakshi Start Time Stop Time Status Last Admin Dose Admin Acetaminophen (Tylenol) 500 mg 1X PRN PRN 03/07/19 07:45 03/08/19 07:44 DC Albumin Human 200 ml @ 200 mls/hr 1X PRN PRN 03/07/19 07:45 03/07/19 13:44 DC Albuterol/ Ipratropium (Duoneb) 3 ml RTQID 03/04/19 08:00 03/04/19 12:15 DC 03/04/19 07:57 3 ML Alprazolam (Xanax) 0.25 mg PRN Q8HRS PRN 03/08/19 08:15 Amlodipine Besylate (Norvasc) 10 mg DAILY 03/04/19 11:30 03/07/19 12:20 10 MG Aspirin (Karime Aspirin) 325 mg 1X ONCE 03/04/19 04:30 03/04/19 04:31 DC 03/04/19 04:30 325 MG Bumetanide (Bumex) 1 mg 1X ONCE 03/04/19 05:15 03/04/19 05:16 DC 03/04/19 05:23 1 MG Cefazolin Sodium/ Dextrose 50 ml @ 100 mls/hr 1X ONCE 03/08/19 11:00 03/08/19 11:29 Clonidine HCl (Catapres) 0.2 mg Q8HRS 03/05/19 14:00 03/07/19 20:46 0.2 MG Dextrose (Dextrose 50%-Water Syringe) 12.5 gm PRN Q15MIN PRN 03/04/19 05:00 Diphenhydramine HCl (Benadryl) 25 mg 1X PRN PRN 03/07/19 07:45 03/08/19 07:44 DC Fentanyl Citrate (Fentanyl 2ml Vial) 100 mcg STK-MED ONCE 03/06/19 11:10 03/06/19 11:11 DC Folic Acid (Folic Acid) 1 mg DAILY 03/06/19 09:00 03/07/19 12:18 1 MG Heparin Sodium (Porcine) (Heparin Sodium) 2,650 unit PRN Q6HRS PRN 03/05/19 05:00 03/07/19 11:17 DC 03/05/19 05:07 2,650 UNIT Heparin Sodium/ Dextrose 500 ml @ 0 mls/hr CONT PRN 03/04/19 05:15 03/06/19 15:54 DC 03/06/19 08:23 30 MLS/HR Heparin Sodium/ Sodium Chloride (HEPARIN for ARTERIAL LINE FLUSH) 1,000 unit 1X ONCE 03/06/19 11:45 03/06/19 11:48 DC 03/06/19 11:58 1,000 UNIT Hydralazine HCl (Apresoline Inj) 20 mg PRN Q4HRS PRN 03/04/19 18:30 03/05/19 08:27 20 MG Hydromorphone HCl (Dilaudid) 0.5 mg PRN Q10MIN PRN 03/06/19 11:15 03/06/19 21:00 DC Info (Anti-Coagulation Monitoring By Pharmacy) 1 each PRN DAILY PRN 03/04/19 12:30 03/07/19 11:18 DC 03/05/19 14:30 1 EACH Info (CONTRAST GIVEN -- Rx MONITORING) 1 each PRN DAILY PRN 03/06/19 12:00 03/08/19 11:59 Info (PHARMACY MONITORING -- do not chart) 1 each PRN DAILY PRN 03/07/19 07:45 UNV Insulin Human Lispro (HumaLOG) 0-5 UNITS TIDWMEALS 03/04/19 08:00 Iohexol (Omnipaque 300 Mg/ml) 100 ml 1X ONCE 03/06/19 11:45 03/06/19 11:48 DC 03/06/19 11:58 127 ML Labetalol HCl (Normodyne Iv Push) 10 mg 1X ONCE 03/04/19 05:00 03/04/19 05:01 DC 03/04/19 05:40 10 MG Labetalol HCl (Trandate) 200 mg BID 03/05/19 11:45 03/07/19 20:46 200 MG Lidocaine HCl (Lidocaine 1% 20ml Vial) 20 ml 1X ONCE 03/06/19 11:45 03/06/19 11:48 DC 03/06/19 11:58 18 ML Lidocaine HCl (Xylocaine-Mpf 1% 2ml Vial) 2 ml STK-MED ONCE 03/06/19 07:46 03/06/19 07:47 DC Lidocaine/ Epinephrine (LIDOCAINE 1%-EPI 1:100,000 Multi-Dose) 20 ml 1X ONCE 03/08/19 10:45 03/08/19 10:46 DC Lidocaine/Sodium Bicarbonate (Buffered Lidocaine 1%) 3 ml 1X ONCE 03/06/19 08:15 03/06/19 08:18 DC 03/06/19 08:37 3 ML Lorazepam (Ativan Inj) 4 mg PRN Q15MIN PRN 03/05/19 11:00 Lorazepam (Ativan) 4 mg PRN Q1HR PRN 03/05/19 11:00 Midazolam HCl (Versed) 2 mg STK-MED ONCE 03/06/19 11:10 03/06/19 11:11 DC Morphine Sulfate (Morphine Sulfate) 1 mg PRN Q10MIN PRN 03/06/19 11:15 03/06/19 21:00 DC Nitroglycerin (Nitro-Bid Oint) 1 inch 1X ONCE 03/04/19 04:30 03/04/19 04:31 DC 03/04/19 04:31 1 INCH Nitroglycerin (Nitrostat) 0.4 mg PRN Q5MIN PRN 03/06/19 13:15 Ondansetron HCl (Zofran) 4 mg PRN Q6HRS PRN 03/06/19 11:15 03/06/19 21:00 DC Potassium Chloride (Klor-Con) 20 meq 1X ONCE 03/04/19 05:15 03/04/19 05:16 DC 03/04/19 05:25 20 MEQ Prochlorperazine Edisylate (Compazine) 5 mg PACU PRN PRN 03/06/19 11:15 03/06/19 21:00 DC Propofol 40 ml @ As Directed STK-MED ONCE 03/08/19 10:34 03/08/19 10:35 DC Ringer's Solution 1,000 ml @ 30 mls/hr Q24H 03/06/19 11:30 03/06/19 15:51 DC Sodium Chloride 1,000 ml @ 400 mls/hr Q2H30M PRN 03/07/19 07:31 03/07/19 19:30 DC Sodium Chloride (Normal Saline Flush) 10 ml 1X PRN PRN 03/07/19 07:45 03/08/19 07:44 DC Thiamine Mononitrate (Vitamin B-1) 100 mg DAILY 03/08/19 09:00 Thiamine HCl 100 mg DAILY 03/06/19 09:00 03/08/19 08:08 DC Lab Laboratory Tests Test 03/07/19 12:22 03/07/19 21:01 03/08/19 05:15 03/08/19 07:07 Glucose (Fingerstick) 90 mg/dL (70-99) 97 mg/dL (70-99) 126 mg/dL (70-99) White Blood Count 7.3 x10^3/uL (4.0-11.0) Red Blood Count 3.80 x10^6/uL (4.30-5.70) Hemoglobin 10.3 g/dL (13.0-17.5) Hematocrit 31.7 % (39.0-53.0) Mean Corpuscular Volume 83 fL (79-100) Mean Corpuscular Hemoglobin 27 pg (25-35) Mean Corpuscular Hemoglobin Concent 33 g/dL (31-37) Red Cell Distribution Width 14.0 % (11.5-14.5) Platelet Count 108 x10^3/uL (140-400) Neutrophils (%) (Auto) 65 % (31-73) Lymphocytes (%) (Auto) 20 % (24-48) Monocytes (%) (Auto) 12 % (0-9) Eosinophils (%) (Auto) 3 % (0-3) Basophils (%) (Auto) 1 % (0-3) Neutrophils # (Auto) 4.7 x10^3uL (1.8-7.7) Lymphocytes # (Auto) 1.5 x10^3/uL (1.0-4.8) Monocytes # (Auto) 0.9 x10^3/uL (0.0-1.1) Eosinophils # (Auto) 0.2 x10^3/uL (0.0-0.7) Basophils # (Auto) 0.1 x10^3/uL (0.0-0.2) Sodium Level 140 mmol/L (136-145) Potassium Level 4.1 mmol/L (3.5-5.1) Chloride Level 103 mmol/L (98-107) Carbon Dioxide Level 27 mmol/L (21-32) Anion Gap 10 (6-14) Blood Urea Nitrogen 31 mg/dL (8-26) Creatinine 4.0 mg/dL (0.7-1.3) Estimated GFR (Cockcroft-Gault) 19.4 BUN/Creatinine Ratio 8 (6-20) Glucose Level 111 mg/dL (70-99) Calcium Level 9.0 mg/dL (8.5-10.1) Total Bilirubin 0.3 mg/dL (0.2-1.0) Aspartate Amino Transf (AST/SGOT) 29 U/L (15-37) Alanine Aminotransferase (ALT/SGPT) 32 U/L (16-63) Alkaline Phosphatase 61 U/L (46-116) Total Protein 7.0 g/dL (6.4-8.2) Albumin 2.8 g/dL (3.4-5.0) Albumin/Globulin Ratio 0.7 (1.0-1.7) Test 5/22/19 08:25 Prothrombin Time 13.2 SEC (11.7-14.0) Prothromb Time International Ratio 1.0 (0.8-1.1) Activated Partial Thromboplast Time 27 SEC (24-38) Results All relevant outside records, renal labs, imaging studies, telemetry/EKG's were reviewed. DON PENNINGTON MD March 08, 2019 10:53
[2019-03-08] MEDS ORDERED: MORPHINE SULFATE 2 MG/ML VIAL. ONE (11:31)
[2019-03-08] MEDS ORDERED: IV RINGERS,LACTATED 1000ML 1,000 ML IV SCH (11:32)
--- NOTE | 2019-03-08 11:34 | NUR ---
JOSE following pt. JOSE notified Daysi at [facility] admission Pt is able to dc today if chair time is confirmed. They are working On placing Pt at [facility]. Chair time pending. Will continue to follow.
[2019-03-08] MEDS: MORPHINE SULFATE 2 MG/ML VIAL. IV PRN ×2 (11:41→11:51)
[2019-03-08] MEDS ORDERED: PROCHLORPERAZINE 10 MG/2 ML VIAL. IV PRN (11:45)
[2019-03-08] MEDS ORDERED: fentaNYL PF VIAL 100 MCG/2 ML VIAL IV PRN ×2 (11:45)
[2019-03-08] MEDS ORDERED: HYDROmorphone 2 MG/ML VIAL IV PRN (11:45)
[2019-03-08] MEDS ORDERED: LIDOCAINE 1% PF 2 ML VIAL. ID PRN (11:45)
[2019-03-08] MEDS ORDERED: ONDANSETRON PF 4 MG/2 ML VIAL. IV PRN (11:45)
--- NOTE | 2019-03-08 12:17 | NUR ---
Received report from EMMANUELLE Freeman of PACU at 1140. The patient underwent tunneled catheter insertion for hemodialysis. He was transferred to the unit at 1200, AO x4. Dressing has scant bleeding, catheter in place. Patient reports pain 4/10, morphine was just given prior to transfer.
--- NOTE | 2019-03-08 12:40 | NUR ---
SW following pt. Spoke with Pt with Cristin from [facility] via phone. Cristin discussed available HD schedule and Pt reported he works 12 hour shifts/4 days a week and reports he can not afford to lose his job at this time. Cristin reported Breana in [facility] has yard cleaner and pt stated that would work with his work schedule until he gets his work scheduled changed. SW phoned [facility] admission and left a message for Daysi. Will continue to follow.
[2019-03-08] MEDS: THIAMINE 100 MG TABLET. PO SCH (13:29)
[2019-03-08] MEDS: FOLIC ACID 1 MG TABLET. PO SCH (13:29)
--- NOTE | 2019-03-08 14:59 | RAD ---
Conversion of a right internal jugular temporary dialysis catheter to tunneled catheter 03/08/2019 7:00 AM Indication: Need for longer term dialysis access Discussion: The risks and benefits of the procedure were discussed the patient. Informed consent was obtained. Timeout procedure was performed. The right neck and chest prepped and draped using sterile barrier technique. All elements of maximal sterile barrier technique including the use of a cap, mask, sterile gown, sterile gloves, large sterile sheet, appropriate hand hygiene, and 2% chlorhexidine for cutaneous antisepsis (or acceptable alternative antiseptic per current guidelines) were followed for this procedure. Fluoroscopic evaluation demonstrates the pre-existing catheter to be in the appropriate position. A guidewire was advanced through the pre-existing catheter, into the IVC. A tunneled dialysis catheter was advanced from a small dermatotomy several inches inferior to the right clavicle to the access site. The pre-existing catheter was removed over a wire. A peel-away sheath was placed. The wire was removed and the new catheter was advanced through the peel-away sheath such that its catheter tip was at the mid right atrium with the patient supine. The new catheter was found to flush and aspirate normally. The catheter was secured in place. Sterile dressings were applied. Total fluoroscopy time: 0.6 minutes Dose area product: 2 Gycmn2 Anesthesia: Provided by the anesthesia department Impression: Conversion of a temporary dialysis catheter to a tunneled dialysis catheter as described
[2019-03-08] MEDS ORDERED: oxyCODONE/APAP 5/325 1 TAB TABLET PO PRN (16:30)
[2019-03-09] MEDS: fentaNYL PF VIAL 100 MCG/2 ML VIAL IV PRN (03:06)
[2019-03-09 03:41] VITALS: BP 133/98
[2019-03-09 03:59] LABS: BASO # 0.1 x10^3/uL (0.0-0.2); BASO % 1 % (0-3); EOS # 0.2 x10^3/uL (0.0-0.7); EOS % 3 % (0-3); HEMATOCRIT 32.6 % (39.0-53.0); HEMOGLOBIN 10.3 g/dL (13.0-17.5); LYMPH # 1.4 x10^3/uL (1.0-4.8); LYMPH % 23 % (24-48); MEAN CORPUSCULAR HEMOGLOBIN 27 pg (25-35); MEAN CORPUSCULAR HGB CONC 31 g/dL (31-37); MEAN CORPUSCULAR VOLUME 84 fL (79-100); MONO # 0.7 x10^3/uL (0.0-1.1); MONO % 12 % (0-9); NEUT # 3.7 x10^3uL (1.8-7.7); NEUT % 61 % (31-73); PLATELET COUNT 108 x10^3/uL (140-400); RED BLOOD COUNT 3.88 x10^6/uL (4.30-5.70); RED CELL DISTRIBUTION WIDTH 14.5 % (11.5-14.5); WHITE BLOOD COUNT 6.1 x10^3/uL (4.0-11.0)
[2019-03-09 04:23] LABS: ALBUMIN 2.9 g/dL (3.4-5.0); ALBUMIN/GLOBULIN RATIO 0.7 (1.0-1.7); CALCIUM 8.9 mg/dL (8.5-10.1); CREATININE 4.5 mg/dL (0.7-1.3); GFR 16.9; POTASSIUM 4.1 mmol/L (3.5-5.1); TOTAL BILIRUBIN 0.2 mg/dL (0.2-1.0); TOTAL PROTEIN 7.1 g/dL (6.4-8.2)
[2019-03-09 05:39] VITALS: BP 133/98
[2019-03-09] MEDS: cloNIDine HCL 0.2 MG TABLET PO SCH (05:39)
[2019-03-09] MEDS ORDERED: IV NORMAL SALINE 1000ML BAG 1,000 ML IV PRN ×2 (07:18)
[2019-03-09] MEDS: FOLIC ACID 1 MG TABLET. PO SCH (07:25)
[2019-03-09] MEDS: amLODIPine BESYLATE 10 MG TABLET PO SCH (07:25)
[2019-03-09] MEDS: INSULIN LISPRO 300 UNITS/3 ML INSULN.PEN. SQ SCH ×2 (07:25→12:00)
[2019-03-09] MEDS: LABETALOL HCL 200 MG TABLET PO SCH (07:26)
[2019-03-09] MEDS: THIAMINE 100 MG TABLET. PO SCH (07:26)
[2019-03-09] MEDS ORDERED: DIALYSIS PATIENT. MC PRN ×2 (07:30)
[2019-03-09] MEDS ORDERED: 0.9 % SODIUM CHLORIDE 10 ML DISP.SYRIN. IV PRN ×2 (07:30)
--- NOTE | 2019-03-09 11:06 | PDOC ---
Provider Note Provider Note Pt did not DC yesterday because out patient chair time not yet finalized All Rx on chart No change in meds Seen in dialysis Must be able to dc today per PAT BARKER MD March 09, 2019 11:06
[2019-03-09 11:22] VITALS: BP 137/99
--- NOTE | 2019-03-09 11:26 | NUR ---
JOSE following pt. 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 Pt now wants to dialyze during day time. JOSE phoned Daysi and she is reaching out back to [facility] dialysis. Will continue to follow.
--- NOTE | 2019-03-09 12:02 | PDOC ---
SUBJECTIVE ROS Stable on HD OBJECTIVE Vital Signs Vital Signs Date Time Temp Pulse Resp B/P (MAP) Pulse Ox O2 Delivery O2 Flow Rate FiO2 03/09/19 11:22 98.2 73 20 137/99 (112) 96 Room Air 98.2 I & 0 Intake and Output 03/09/19 06:59 Intake Total 1340 ml Output Total 3 ml Balance 1337 ml Intake Oral 1240 ml IV Total 100 ml Output Urine Total 3 ml PHYSICAL EXAM Physical Exam GEN: NAD HEN: Om moist NECK: supple CVS: RRR RESP: CTA, No acc muscle use GI: BS + ve, NO Bruit, Non Tender, Non Distended : No Miguel Tunnelled Dialysis catheter Rt side DIAGNOSIS/ASSESSMENT Assessment & Plan New Onset ESRD - secondary to hypertension and nephrosclerosis, Initiated HD 03/06, 3 red Treatment today Continue TTS schedule while inpatient Access - Has Tunnelled Dialysis cath 03/08 SW for OP chair time Pt refusing AV access evaluation at this time He is also not interested in PD Congestive heart failure, most probably acute on chronic, sudden onset. compensated currently NSTEMI- S/P Cardiac cath 03/06 Large coronary arteries with no angiographic evidence of coronary artery disease. Anemia- stable Per primary Accelerated hypertension: Blood pressure continues to be elevated. Start labetalol for better control. Renal arterial duplex report No significant renal artery stenosis Cardiology managing Diabetes mellitus type 2: Per Primary COMMENT/RELEVANT DATA Meds Current Medications Medications (Trade) Dose Ordered Sig/Sakshi Start Time Stop Time Status Last Admin Dose Admin Acetaminophen (Tylenol) 500 mg 1X PRN PRN 03/07/19 07:45 03/08/19 07:44 DC Albumin Human 200 ml @ 200 mls/hr 1X PRN PRN 03/07/19 07:45 03/07/19 13:44 DC Albuterol/ Ipratropium (Duoneb) 3 ml RTQID 03/04/19 08:00 03/04/19 12:15 DC 03/04/19 07:57 3 ML Alprazolam (Xanax) 0.25 mg PRN Q8HRS PRN 03/08/19 08:15 Amlodipine Besylate (Norvasc) 10 mg DAILY 03/04/19 11:30 03/07/19 12:20 10 MG Aspirin (Karime Aspirin) 325 mg 1X ONCE 03/04/19 04:30 03/04/19 04:31 DC 03/04/19 04:30 325 MG Bumetanide (Bumex) 1 mg 1X ONCE 03/04/19 05:15 03/04/19 05:16 DC 03/04/19 05:23 1 MG Cefazolin Sodium/ Dextrose 50 ml @ 100 mls/hr 1X ONCE 03/08/19 11:00 03/08/19 11:29 DC 03/08/19 11:04 100 MLS/HR Clonidine HCl (Catapres) 0.2 mg Q8HRS 03/05/19 14:00 03/09/19 05:39 0.2 MG Dextrose (Dextrose 50%-Water Syringe) 12.5 gm PRN Q15MIN PRN 03/04/19 05:00 Diphenhydramine HCl (Benadryl) 25 mg 1X PRN PRN 03/07/19 07:45 03/08/19 07:44 DC Fentanyl Citrate (Fentanyl 2ml Vial) 50 mcg PRN Q5MIN PRN 03/08/19 11:45 03/09/19 11:44 DC Folic Acid (Folic Acid) 1 mg DAILY 03/06/19 09:00 03/08/19 13:29 1 MG Heparin Sodium (Porcine) (Heparin Sodium) 2,650 unit PRN Q6HRS PRN 03/05/19 05:00 03/07/19 11:17 DC 03/05/19 05:07 2,650 UNIT Heparin Sodium/ Dextrose 500 ml @ 0 mls/hr CONT PRN 03/04/19 05:15 03/06/19 15:54 DC 03/06/19 08:23 30 MLS/HR Heparin Sodium/ Sodium Chloride (HEPARIN for ARTERIAL LINE FLUSH) 1,000 unit 1X ONCE 03/06/19 11:45 03/06/19 11:48 DC 03/06/19 11:58 1,000 UNIT Hydralazine HCl (Apresoline Inj) 20 mg PRN Q4HRS PRN 03/04/19 18:30 03/05/19 08:27 20 MG Hydromorphone HCl (Dilaudid) 0.5 mg PRN Q10MIN PRN 03/08/19 11:45 03/09/19 11:44 DC Info (Anti-Coagulation Monitoring By Pharmacy) 1 each PRN DAILY PRN 03/04/19 12:30 03/07/19 11:18 DC 03/05/19 14:30 1 EACH Info (CONTRAST GIVEN -- Rx MONITORING) 1 each PRN DAILY PRN 03/06/19 12:00 03/08/19 11:59 DC Info (PHARMACY MONITORING -- do not chart) 1 each PRN DAILY PRN 03/09/19 07:30 UNV Insulin Human Lispro (HumaLOG) 0-5 UNITS TIDWMEALS 03/04/19 08:00 Iohexol (Omnipaque 300 Mg/ml) 100 ml 1X ONCE 03/06/19 11:45 03/06/19 11:48 DC 03/06/19 11:58 127 ML Labetalol HCl (Normodyne Iv Push) 10 mg 1X ONCE 03/04/19 05:00 03/04/19 05:01 DC 03/04/19 05:40 10 MG Labetalol HCl (Trandate) 200 mg BID 03/05/19 11:45 03/08/19 19:47 200 MG Lidocaine HCl (Lidocaine 1% 20ml Vial) 20 ml 1X ONCE 03/06/19 11:45 03/06/19 11:48 DC 03/06/19 11:58 18 ML Lidocaine HCl (Xylocaine-Mpf 1% 2ml Vial) 2 ml PRN 1X PRN 03/08/19 11:45 03/09/19 11:44 DC Lidocaine/ Epinephrine (LIDOCAINE 1%-EPI 1:100,000 Multi-Dose) 20 ml 1X ONCE 03/08/19 10:45 03/08/19 10:46 DC 03/08/19 11:05 7 ML Lidocaine/Sodium Bicarbonate (Buffered Lidocaine 1%) 3 ml 1X ONCE 03/06/19 08:15 03/06/19 08:18 DC 03/06/19 08:37 3 ML Lorazepam (Ativan Inj) 4 mg PRN Q15MIN PRN 03/05/19 11:00 Lorazepam (Ativan) 4 mg PRN Q1HR PRN 03/05/19 11:00 Midazolam HCl (Versed) 2 mg STK-MED ONCE 03/06/19 11:10 03/06/19 11:11 DC Morphine Sulfate (Morphine Sulfate) 1 mg PRN Q10MIN PRN 03/08/19 11:45 03/09/19 11:44 DC 03/08/19 11:51 1 MG Nitroglycerin (Nitro-Bid Oint) 1 inch 1X ONCE 03/04/19 04:30 03/04/19 04:31 DC 03/04/19 04:31 1 INCH Nitroglycerin (Nitrostat) 0.4 mg PRN Q5MIN PRN 03/06/19 13:15 Ondansetron HCl (Zofran) 4 mg PRN Q6HRS PRN 03/08/19 11:45 03/09/19 11:44 DC Oxycodone/ Acetaminophen (Percocet 5/325) 1 tab PRN Q6HRS PRN 03/08/19 16:30 03/08/19 19:47 1 TAB Potassium Chloride (Klor-Con) 20 meq 1X ONCE 03/04/19 05:15 03/04/19 05:16 DC 03/04/19 05:25 20 MEQ Prochlorperazine Edisylate (Compazine) 5 mg PACU PRN PRN 03/08/19 11:45 03/09/19 11:44 DC Propofol 20 ml @ As Directed STK-MED ONCE 03/08/19 10:34 03/08/19 10:35 DC Ringer's Solution 1,000 ml @ 30 mls/hr Q24H 03/08/19 11:32 03/08/19 23:31 DC Sodium Chloride 1,000 ml @ 400 mls/hr Q2H30M PRN 03/09/19 07:18 03/09/19 19:17 Sodium Chloride (Normal Saline Flush) 10 ml 1X PRN PRN 03/09/19 07:30 03/10/19 07:29 Thiamine Mononitrate (Vitamin B-1) 100 mg DAILY 03/08/19 09:00 03/08/19 13:29 100 MG Thiamine HCl 100 mg DAILY 03/06/19 09:00 03/08/19 08:08 DC Lab Laboratory Tests Test 03/08/19 13:24 03/08/19 17:00 03/08/19 20:08 03/09/19 02:55 Glucose (Fingerstick) 123 mg/dL (70-99) 111 mg/dL (70-99) 111 mg/dL (70-99) White Blood Count 6.1 x10^3/uL (4.0-11.0) Red Blood Count 3.88 x10^6/uL (4.30-5.70) Hemoglobin 10.3 g/dL (13.0-17.5) Hematocrit 32.6 % (39.0-53.0) Mean Corpuscular Volume 84 fL (79-100) Mean Corpuscular Hemoglobin 27 pg (25-35) Mean Corpuscular Hemoglobin Concent 31 g/dL (31-37) Red Cell Distribution Width 14.5 % (11.5-14.5) Platelet Count 108 x10^3/uL (140-400) Neutrophils (%) (Auto) 61 % (31-73) Lymphocytes (%) (Auto) 23 % (24-48) Monocytes (%) (Auto) 12 % (0-9) Eosinophils (%) (Auto) 3 % (0-3) Basophils (%) (Auto) 1 % (0-3) Neutrophils # (Auto) 3.7 x10^3uL (1.8-7.7) Lymphocytes # (Auto) 1.4 x10^3/uL (1.0-4.8) Monocytes # (Auto) 0.7 x10^3/uL (0.0-1.1) Eosinophils # (Auto) 0.2 x10^3/uL (0.0-0.7) Basophils # (Auto) 0.1 x10^3/uL (0.0-0.2) Sodium Level 140 mmol/L (136-145) Potassium Level 4.1 mmol/L (3.5-5.1) Chloride Level 103 mmol/L (98-107) Carbon Dioxide Level 28 mmol/L (21-32) Anion Gap 9 (6-14) Blood Urea Nitrogen 37 mg/dL (8-26) Creatinine 4.5 mg/dL (0.7-1.3) Estimated GFR (Cockcroft-Gault) 16.9 BUN/Creatinine Ratio 8 (6-20) Glucose Level 121 mg/dL (70-99) Calcium Level 8.9 mg/dL (8.5-10.1) Total Bilirubin 0.2 mg/dL (0.2-1.0) Aspartate Amino Transf (AST/SGOT) 31 U/L (15-37) Alanine Aminotransferase (ALT/SGPT) 35 U/L (16-63) Alkaline Phosphatase 59 U/L (46-116) Total Protein 7.1 g/dL (6.4-8.2) Albumin 2.9 g/dL (3.4-5.0) Albumin/Globulin Ratio 0.7 (1.0-1.7) Test 03/09/19 11:46 Glucose (Fingerstick) 93 mg/dL (70-99) Results All relevant outside records, renal labs, imaging studies, telemetry/EKG's were reviewed. DON PENNINGTON MD March 09, 2019 12:02
--- NOTE | 2019-03-09 14:26 | NUR ---
Discharge Note: [facility] [address] [place] [address] Discharge instructions and discharge home medications reviewed with Patient and a copy given. All questions have been answered and understanding verbalized. The following instructions and handouts were given: ESRD, diet changes, follow-up with o/p dialysis chair. Discontinued lines and drains: 1 x PIV tip intact. Patient discharged to home with spouse.
--- NOTE | 2019-03-09 15:04 | NUR ---
late note: Pt has a confirmed chair time at [facility] on , and Sat at 1045. Pt is scheduled for first appointment on Wednesday as they do not have an open chair time this Wednesday. Pt is provided with copy of schedule. Pt verbalized understanding. Pt's spouse present in room. RN notified.
== END 2019-03-09 14:00 | disposition home or self-care (01) | DRG 280 ==
LOC: ER 04:07 → 1 WEST ICU 05:38 → 6 SOUTH 03-07 16:36
PROVIDERS: ADMIT Internal Medicine; ATTEND Internal Medicine
PROC: B2111ZZ Fluoroscopy of Multiple Coronary Arteries using Low Osmolar Contrast (ICD-10-PCS; 2019-03-06)
PROC: B3101ZZ Fluoroscopy of Thoracic Aorta using Low Osmolar Contrast (ICD-10-PCS; 2019-03-06)
PROC: 02HV33Z Insertion of Infusion Device into Superior Vena Cava, Percutaneous Approach (ICD-10-PCS; 2019-03-06)
PROC: B548ZZA Ultrasonography of Superior Vena Cava, Guidance (ICD-10-PCS; 2019-03-06)
PROC: 5A1D70Z Performance of Urinary Filtration, Intermittent, Less than 6 Hours Per Day (ICD-10-PCS; 2019-03-06)
PROC: 4A023N7 Measurement of Cardiac Sampling and Pressure, Left Heart, Percutaneous Approach (ICD-10-PCS; principal; 2019-03-06 12:30)
PROC: 5A1D70Z Performance of Urinary Filtration, Intermittent, Less than 6 Hours Per Day (ICD-10-PCS; 2019-03-07)
PROC: 02PY33Z Removal of Infusion Device from Great Vessel, Percutaneous Approach (ICD-10-PCS; 2019-03-08)
PROC: 0JH63XZ Insertion of Tunneled Vascular Access Device into Chest Subcutaneous Tissue and Fascia, Percutaneous Approach (ICD-10-PCS; 2019-03-08)
PROC: 02H633Z Insertion of Infusion Device into Right Atrium, Percutaneous Approach (ICD-10-PCS; 2019-03-08)
PROC: B2141ZZ Fluoroscopy of Right Heart using Low Osmolar Contrast (ICD-10-PCS; 2019-03-08)
PROC: 5A1D70Z Performance of Urinary Filtration, Intermittent, Less than 6 Hours Per Day (ICD-10-PCS; 2019-03-09)
DX: I21.4 Non-ST elevation (NSTEMI) myocardial infarction (principal); N18.6 End stage renal disease; I13.2 Hypertensive heart and chronic kidney disease with heart failure and with stage 5 chronic kidney disease, or end stage renal disease; N17.9 Acute kidney failure, unspecified; E11.22 Type 2 diabetes mellitus with diabetic chronic kidney disease; F17.210 Nicotine dependence, cigarettes, uncomplicated; E87.6 Hypokalemia; I50.9 Heart failure, unspecified; E66.9 Obesity, unspecified; I16.0 Hypertensive urgency; D63.8 Anemia in other chronic diseases classified elsewhere; I77.810 Thoracic aortic ectasia; R09.02 Hypoxemia; Z91.19 Patient's noncompliance with other medical treatment and regimen; Z82.49 Family history of ischemic heart disease and other diseases of the circulatory system; Z99.2 Dependence on renal dialysis; Z68.31 Body mass index [BMI] 31.0-31.9, adult
CPT/HCPCS: 93458; 93567; 99285; G0269; 36415; 36556; 36581; 71045; 76770; 76937; 77001; 80053; 80061; 80307; 81001; 82553; 82962; 83605; 83735; 83880; 84484; 85025; 85520; 85610; 85730; 86704; 86706; 87040; 87340; 87641; 93005; 93306; 94640; 94760; 96374; 96375; C1750; C1760; C1769; C1892; J0360; J0696; J1644; J1815; J2250; J2270; J2704; J3010; J3490; J7620; Q9967; C1771

== ENCOUNTER 2019-04-10 08:23 | Day surgery (SDC) | payer BC ==
[~2019-04-10] VITALS: Ht 185.4 cm; Wt 106.5 kg
[~2019-04-10 08:23] MED LIST: AMLO10TA8 PO; BUPIVAC MPF-EPI 0.5%-1:200000 30 ML VIAL. ONE; CLON0.2T10 PO; FOLI1TAB16 PO; HEPARIN SODIUM 5,000 UNIT in IV NORMAL SALINE 500ML BAG 500 ML IRR ONE; HYDROmorphone 2 MG/ML VIAL IV PRN; IV NORMAL SALINE 1000ML BAG 1,000 ML IV SCH; IV RINGERS,LACTATED 1000ML 1,000 ML IV SCH; LABE200T4 PO; LIDOCAINE 1% PF 2 ML VIAL. ID PRN; MORPHINE SULFATE 2 MG/ML VIAL. IV PRN; NITR0.4T SL; ONDANSETRON PF 4 MG/2 ML VIAL. IV PRN; PROCHLORPERAZINE 10 MG/2 ML VIAL. IV PRN; THIA100T22 PO; fentaNYL PF VIAL 100 MCG/2 ML VIAL IV PRN
[2019-04-10] MEDS ORDERED: fentaNYL PF VIAL 100 MCG/2 ML VIAL ONE ×2 (08:26→10:20)
[2019-04-10] MEDS ORDERED: DEXAMETHASONE SOD PHOS 4 MG/ML VIAL ONE ×2 (08:26→09:36)
[2019-04-10] MEDS ORDERED: ONDANSETRON PF 4 MG/2 ML VIAL. ONE (08:26)
[2019-04-10] MEDS ORDERED: ROCURONIUM 50 MG/5 ML VIAL. ONE (08:26)
[2019-04-10] MEDS ORDERED: PROPOFOL 20 ML IV ONE (08:26)
[2019-04-10] MEDS ORDERED: LIDOCAINE 2% PF 5 ML VIAL. ONE (08:26)
[2019-04-10 09:13] LABS: BASO # 0.1 x10^3/uL (0.0-0.2); BASO % 1 % (0-3); EOS # 0.2 x10^3/uL (0.0-0.7); EOS % 3 % (0-3); HEMATOCRIT 36.1 % (39.0-53.0); HEMOGLOBIN 11.9 g/dL (13.0-17.5); LYMPH # 1.6 x10^3/uL (1.0-4.8); LYMPH % 24 % (24-48); MEAN CORPUSCULAR HEMOGLOBIN 28 pg (25-35); MEAN CORPUSCULAR HGB CONC 33 g/dL (31-37); MEAN CORPUSCULAR VOLUME 85 fL (79-100); MONO # 0.6 x10^3/uL (0.0-1.1); MONO % 10 % (0-9); NEUT % 62 % (31-73); PLATELET COUNT 167 x10^3/uL (140-400); RED BLOOD COUNT 4.26 x10^6/uL (4.30-5.70); RED CELL DISTRIBUTION WIDTH 15.1 % (11.5-14.5); WHITE BLOOD COUNT 6.6 x10^3/uL (4.0-11.0)
[2019-04-10] MEDS ORDERED: NEOSTIGMINE METHYLSULFATE 5 MG/5 ML SYRINGE. ONE (09:44)
[2019-04-10] MEDS ORDERED: GLYCOPYRROLATE 1 MG/5 ML VIAL. ONE (09:44)
[2019-04-10] MEDS ORDERED: SEVOFLURANE 31 TO 60 MINUTES. IH ONE (09:58)
[2019-04-10] MEDS ORDERED: ceFAZolin 2GM PREMIX 2 GM/50 ML BAG IV ONE (10:00)
[2019-04-10 10:03] LABS: ALBUMIN 3.7 g/dL (3.4-5.0); CALCIUM 9.1 mg/dL (8.5-10.1); CREATININE 5.8 mg/dL (0.7-1.3); GFR 12.6; POTASSIUM 4.4 mmol/L (3.5-5.1)
--- NOTE | 2019-04-10 10:29 | PDOC ---
BRIEF OPERATIVE NOTE Date: Apr 10, 2019 Pre-Op Diagnosis ESRD Post-Op Diagnosis same Procedure Performed l/s placement of PD catheter Surgeon Tree Anesthesia Type: General Blood Loss 5cc IV Fluid 250cc Urine Output 75cc Specimens Obtained none Findings minimal omental adhesions in the LUQ Complications none Operative Note Wk # [id number] WILMER NANCE MD Apr 10, 2019 10:29
[2019-04-10] MEDS ORDERED: OXYC1TAB19 PO (10:45)
[2019-04-10] MEDS ORDERED: DOCU-109 PO (10:45)
[2019-04-10 11:00] VITALS: BP 156/95
[2019-04-10] MEDS ORDERED: oxyCODONE/APAP 7.5/325 1 TAB TABLET PO ONE (11:00)
--- NOTE | 2019-04-10 11:00 | OP ---
DATE OF SURGERY: 04/10/2019 PREOPERATIVE DIAGNOSIS: End-stage renal disease. POSTOPERATIVE DIAGNOSIS: End-stage renal disease. PROCEDURE: Laparoscopic placement of peritoneal dialysis catheter. SURGEON: Ozzy Nance M.D. ANESTHESIA: General endotracheal. ESTIMATED BLOOD LOSS: 5 mL. INTRAVENOUS FLUID: 250 mL. URINE OUTPUT: 75 mL. DESCRIPTION OF PROCEDURE: The patient brought to the operating suite, given a general endotracheal anesthetic and the abdomen prepped and draped after placement of a Miguel catheter to dependent drainage. An epigastric incision was infiltrated with local anesthetic, incised and a 5-mm Visiport used to safely gain access into the abdominal cavity, taking care to avoid injury to abdominal contents. Pneumoperitoneum established. Camera inserted and inspection carried out, with results as noted above. The template was used to susan the course of the catheter and the insertion site was infiltrated with local anesthetic, incised and under direct vision, the Cook needle was placed in the abdomen. Needle removed. Dilator was passed through the sheath and removed. Catheter was threaded through the sheath into the pelvis and the sheath was removed. The Dacron cuff was seated just above the peritoneum. The remaining catheter was tunneled subcutaneously at the access site. Catheter was flushed with 500 mL of normal saline, which readily accepted and drained a similar amount to dependent gravity. Incisions closed with interrupted 3-0 Vicryl subcutaneously and subcuticular 4-0 Monocryl with Steri-Strips in the skin. The catheter was "packed" with 60 mL of heparinized saline. Sterile dressing applied. Miguel catheter removed. The patient awakened from his anesthetic and taken to the recovery room in satisfactory condition. OZZY NANCE MD DR: YOUNG/nkechi JOB#: [id number] / [id number]
== END 2019-04-10 11:30 | disposition home or self-care (01) ==
LOC: SURG 08:23
PROVIDERS: ATTEND Surgery
DX: I13.11 Hypertensive heart and chronic kidney disease without heart failure, with stage 5 chronic kidney disease, or end stage renal disease (principal); N18.6 End stage renal disease; Z87.891 Personal history of nicotine dependence; Z72.89 Other problems related to lifestyle
CPT/HCPCS: 36415; 49324; 80048; 82040; 85025; A7015; J0696; J1100; J1644; J2001; J2405; J2704; J2710; J3010; J3490; J7030; J7040

== ENCOUNTER 2020-07-24 13:42 | Outpatient (CLI) | payer BC ==
[~2020-07-24] VITALS: Ht 185.4 cm; Wt 99.8 kg
[~2020-07-24 13:42] MED LIST changes: +AMLO-187 PO; -AMLO10TA8 PO; -BUPIVAC MPF-EPI 0.5%-1:200000 30 ML VIAL. ONE; +DOCU-109 PO; -HEPARIN SODIUM 5,000 UNIT in IV NORMAL SALINE 500ML BAG 500 ML IRR ONE; -HYDROmorphone 2 MG/ML VIAL IV PRN; -IV NORMAL SALINE 1000ML BAG 1,000 ML IV SCH; -IV RINGERS,LACTATED 1000ML 1,000 ML IV SCH; -LIDOCAINE 1% PF 2 ML VIAL. ID PRN; -MORPHINE SULFATE 2 MG/ML VIAL. IV PRN; -NITR0.4T SL; +NITR0.4T24 SL; -ONDANSETRON PF 4 MG/2 ML VIAL. IV PRN; +OXYC1TAB19 PO; -PROCHLORPERAZINE 10 MG/2 ML VIAL. IV PRN; -fentaNYL PF VIAL 100 MCG/2 ML VIAL IV PRN
[2020-07-24 14:00] VITALS: BP 144/83
[2020-07-24] MEDS ORDERED: IOHEXOL 240 MG/ML 50ML VIAL. ONE (14:10)
[2020-07-24] MEDS ORDERED: IOHEXOL 240 MG/ML 50ML VIAL. IJ ONE (14:15)
[2020-07-24] MEDS ORDERED: CONTRAST GIVEN. MC PRN (14:30)
--- NOTE | 2020-07-24 14:51 | NUR ---
Discharge Note: [facility] Discharge instructions and discharge home medications reviewed with Patient and a copy given. All questions have been answered and understanding verbalized. The following instructions and handouts were given: follow up regarding peritoneal dialysis catheter Discontinued lines and drains: nothing to discontinue. Patient discharged to Home or Self Care with[facility]
--- NOTE | 2020-07-26 10:54 | RAD ---
Fluoroscopic evaluation, peritoneal dialysis catheter July 24, 2020 INDICATION: Catheter will not adequately flush or aspirate Discussion: The procedure was explained in its entirety to the patient or the patients designated advertising representative by a member of the treatment team, including a discussion of the risks, benefits and commonly accepted alternatives to the procedure, as well as the expected consequences of no therapy whatsoever. Discussion of the risks included, but was not limited to, those that are most frequent and those that are rare but possibly severe or life-threatening, as well as the possibility of unforeseen complications. All elements of maximal sterile barrier technique including the use of a cap, mask, sterile gown, sterile gloves, large sterile sheet, appropriate hand hygiene, and 2% chlorhexidine for cutaneous antisepsis (or acceptable alternative antiseptic per current guidelines) were followed for this procedure. Fluoroscopic. The catheter would not aspirate. Heparinized saline was administered through the catheter, which had greater than normal resistance. Contrast was administered demonstrating a probable fibrin sheath around the distal aspect of the catheter levels as well as possible occlusion of the distal catheter. A small amount of contrast was seen exiting the catheter and extending cephalad before freely entering the peritoneum. Catheter was flushed, and sterile dressings were applied. Total fluoroscopy time: 3.8 minutes Dose area product: 2 Gycm2 Impression: Distal catheter occlusion with possible associated fibrin sheath. No significant improvement could be obtained by fluoroscopic manipulation
== END 2020-07-24 14:50 ==
LOC: INTRAD 13:42
PROVIDERS: ATTEND Internal Medicine Nephrology
DX: T85.691A Other mechanical complication of intraperitoneal dialysis catheter, initial encounter (principal); T86.290 Cardiac allograft vasculopathy; I13.2 Hypertensive heart and chronic kidney disease with heart failure and with stage 5 chronic kidney disease, or end stage renal disease; I50.9 Heart failure, unspecified; N18.6 End stage renal disease; E11.22 Type 2 diabetes mellitus with diabetic chronic kidney disease; F17.210 Nicotine dependence, cigarettes, uncomplicated; Z88.8 Allergy status to other drugs, medicaments and biological substances; Z79.899 Other long term (current) drug therapy; Y65.8 Other specified misadventures during surgical and medical care; Z79.84 Long term (current) use of oral hypoglycemic drugs
CPT/HCPCS: 49400; 74190; C1713; C1769; Q9966

== ENCOUNTER → 2020-07-25 | Outpatient (CLI) | payer BC ==
[2020-07-24 14:00] VITALS: BP 144/83
[~2020-07-25] MED LIST changes: -AMLO-187 PO; +AMLO10TA8 PO
== END ==
LOC: LAB 14:53
PROVIDERS: ATTEND Surgery
DX: Z01.812 Encounter for preprocedural laboratory examination (principal); N19 Unspecified kidney failure; Z20.828 Contact with and (suspected) exposure to other viral communicable diseases
CPT/HCPCS: U0003-CS

== ENCOUNTER 2020-07-29 10:02 | Day surgery (SDC) | payer BC ==
[~2020-07-29] VITALS: Ht 182.9 cm; Wt 100.5 kg
[~2020-07-29 10:02] MED LIST changes: +AMLO-187 PO; -AMLO10TA8 PO; +HEPARIN SODIUM 1,000 UNIT in IV NORMAL SALINE 100ML 100 ML IRR ONE; +HYDROmorphone 2 MG/ML VIAL IV PRN; +IV NORMAL SALINE 1000ML BAG 1,000 ML IV ONE; +IV RINGERS,LACTATED 1000ML 1,000 ML IV SCH; +LIDOCAINE 1% PF 2 ML VIAL. ID PRN; +LIDOCAINE 2% PF 5 ML VIAL. ONE; +MORPHINE SULFATE 2 MG/ML VIAL. IV PRN; +ONDANSETRON PF 4 MG/2 ML VIAL. IV PRN; +PROCHLORPERAZINE 10 MG/2 ML VIAL. IV PRN; +PROPOFOL 10 MG/ML (20ML) VIAL. IV ONE; +ROCURONIUM 50 MG/5 ML VIAL. ONE; +fentaNYL PF VIAL 100 MCG/2 ML VIAL IV PRN; +fentaNYL PF VIAL 100 MCG/2 ML VIAL ONE
[2020-07-29] MEDS ORDERED: SUCCINYLCHOLINE 200 MG/10 ML VIAL. ONE (10:03)
[2020-07-29] MEDS ORDERED: DOXA4TAB3 PO (10:28)
[2020-07-29] MEDS ORDERED: LISI-334 PO (10:28)
[2020-07-29] MEDS ORDERED: CALC0.25 PO (10:28)
[2020-07-29] MEDS ORDERED: FOLI0.8T3 PO (10:28)
[2020-07-29] MEDS ORDERED: FURO80TA3 PO (10:28)
[2020-07-29] MEDS ORDERED: NEOSTIGMINE METHYLSULFATE 5 MG/5 ML SYRINGE. ONE (11:30)
[2020-07-29] MEDS ORDERED: GLYCOPYRROLATE 1 MG/5 ML VIAL. ONE (11:30)
[2020-07-29] MEDS ORDERED: DEXAMETHASONE SOD PHOS 4 MG/ML VIAL ONE (11:30)
[2020-07-29] MEDS ORDERED: ONDANSETRON PF 4 MG/2 ML VIAL. ONE (11:30)
[2020-07-29] MEDS ORDERED: PROPOFOL 10 MG/ML (20ML) VIAL. IV ONE (11:51)
[2020-07-29] MEDS ORDERED: fentaNYL PF VIAL 100 MCG/2 ML VIAL ONE (12:10)
[2020-07-29] MEDS ORDERED: SUGAMMADEX SODIUM 200 MG/2 ML VIAL. IVP ONE (12:15)
--- NOTE | 2020-07-29 12:16 | PDOC4 ---
Operative Note Operative Note Operative Note: Preoperative Diagnosis: Malfunctioning peritoneal dialysis catheter Postoperative Diagnosis: Same Procedure: Laparoscopic revision of peritoneal dialysis catheter Surgeon: Darian Information Security Director: John HOLCOMB Anesthesia: General EBL: 10 mL Specimen: None Drains: None Complications: None Indication: The patient is a 49-year-old male who previously had a peritoneal dialysis catheter placed by Dr. Leavitt. The catheter is no longer functional and the plan is to proceed with either revision or replacement. The risks of surgery were discussed with the patient which include bleeding, infection, visceral injury, pain, anesthetic risk, catheter malfunction or dysfunction, potential need for additional surgery procedure. He understands and would like to proceed Description: The patient was taken the operating room and placed supine on the operating table. General anesthesia was performed. The abdomen was prepped with ChloraPrep and draped in a standard surgical manner. A left upper quadrant incision was made the skin through which a visualized 5 mm trocar was inserted. A pneumoperitoneum was created and the laparoscope was introduced. In the left lateral abdomen another 5 mm trocar was inserted. Inspection showed the PD catheter traversing in the left lateral abdomen. There was a tract of the catheter with the coiled portion completely hidden surrounded by adherent bowel. The small bowel had essentially adhered to and surrounded the coiled portion of the catheter causing obstruction to flow. It was readily withdrawn from this position and showed no staining or evidence of infection. There is no inflammatory or infectious process seen within the abdomen. The catheter was positioned back into the lower mid abdomen without difficulty. We tested the catheter and a full liter of saline flushed into the abdomen without difficulty. The bag was placed on the floor and the majority of the fluid was withdrawn without difficulty. The pneumoperitoneum was relieved and laparoscopic ports were removed. The skin at both incisions was closed with 4 Monocryl. Steri- Strips were applied. The patient tolerated the procedure well and sent to recovery room in stable condition. At the end the case all counts were correct. JULIO CARL MD Jul 29, 2020 12:16
[2020-07-29] MEDS ORDERED: SEVOFLURANE 61 TO 120 MINUTES. IH ONE (12:17)
--- NOTE | 2020-07-29 12:18 | DISCH ---
DISCHARGE INSTRUCTIONS Condition on Discharge Condition on Discharge: Stable Activity After Discharge Activity Instructions for Disc: Resume previous activity Diet after Discharge Diet after Discharge: Renal Dialysis Follow-Up Follow up with: Dialysis center JULIO CARL MD Jul 29, 2020 12:18
[2020-07-29] MEDS: fentaNYL PF VIAL 100 MCG/2 ML VIAL IV PRN ×4 (12:38→13:19)
[2020-07-29 13:20] VITALS: BP 112/80
[2020-07-29] MEDS ORDERED: HYDROcodone/APAP 5/325MG 1 TAB TABLET PO ONE (13:30)
== END 2020-07-29 14:04 | disposition home or self-care (01) ==
LOC: SURG 10:02
PROVIDERS: ATTEND Surgery
DX: T85.611A Breakdown (mechanical) of intraperitoneal dialysis catheter, initial encounter (principal); I13.2 Hypertensive heart and chronic kidney disease with heart failure and with stage 5 chronic kidney disease, or end stage renal disease; N18.6 End stage renal disease; I50.9 Heart failure, unspecified; E11.22 Type 2 diabetes mellitus with diabetic chronic kidney disease; Z79.84 Long term (current) use of oral hypoglycemic drugs; Z79.899 Other long term (current) drug therapy; Y65.8 Other specified misadventures during surgical and medical care; Y92.89 Other specified places as the place of occurrence of the external cause
CPT/HCPCS: 36415; 84132; A7015; J0330; J0690; J1100; J1644; J2405; J2704; J2710; J3010; J3490

== ENCOUNTER 2020-08-14 10:13 | Outpatient (CLI) | payer BC ==
[~2020-08-14] VITALS: Ht 185.4 cm; Wt 102.1 kg
[2020-08-14] VITALS (7 sets, daily range): BP systolic 111–133; BP diastolic 69–82
[~2020-08-14 10:13] MED LIST changes: +CALC0.25 PO; +DOXA4TAB3 PO; +FOLI0.8T3 PO; +FURO80TA3 PO; -HEPARIN SODIUM 1,000 UNIT in IV NORMAL SALINE 100ML 100 ML IRR ONE; -HYDROmorphone 2 MG/ML VIAL IV PRN; -IV NORMAL SALINE 1000ML BAG 1,000 ML IV ONE; -IV RINGERS,LACTATED 1000ML 1,000 ML IV SCH; -LIDOCAINE 1% PF 2 ML VIAL. ID PRN; -LIDOCAINE 2% PF 5 ML VIAL. ONE; +LISI-334 PO; -MORPHINE SULFATE 2 MG/ML VIAL. IV PRN; -ONDANSETRON PF 4 MG/2 ML VIAL. IV PRN; -PROCHLORPERAZINE 10 MG/2 ML VIAL. IV PRN; -PROPOFOL 10 MG/ML (20ML) VIAL. IV ONE; -ROCURONIUM 50 MG/5 ML VIAL. ONE; -fentaNYL PF VIAL 100 MCG/2 ML VIAL IV PRN; -fentaNYL PF VIAL 100 MCG/2 ML VIAL ONE
[2020-08-14] MEDS ORDERED: FURO80TA3 PO (10:28)
[2020-08-14] MEDS ORDERED: LISI-334 PO (10:28)
[2020-08-14] MEDS ORDERED: AMLO-187 PO (10:28)
[2020-08-14 10:56] LABS: BASO # 0.1 x10^3/uL (0.0-0.2); BASO % 1 % (0-3); EOS # 0.2 x10^3/uL (0.0-0.7); EOS % 4 % (0-3); HEMATOCRIT 32.3 % (39.0-53.0); HEMOGLOBIN 10.5 g/dL (13.0-17.5); LYMPH # 1.3 x10^3/uL (1.0-4.8); LYMPH % 19 % (24-48); MEAN CORPUSCULAR HEMOGLOBIN 28 pg (25-35); MEAN CORPUSCULAR HGB CONC 32 g/dL (31-37); MEAN CORPUSCULAR VOLUME 85 fL (79-100); MONO # 0.7 x10^3/uL (0.0-1.1); MONO % 10 % (0-9); NEUT # 4.5 x10^3/uL (1.8-7.7); NEUT % 66 % (31-73); PLATELET COUNT 264 x10^3/uL (140-400); RED CELL DISTRIBUTION WIDTH 12.4 % (11.5-14.5); WHITE BLOOD COUNT 6.8 x10^3/uL (4.0-11.0)
[2020-08-14 11:05] LABS: CALCIUM 8.9 mg/dL (8.5-10.1); CREATININE 4.7 mg/dL (0.7-1.3); POTASSIUM 3.9 mmol/L (3.5-5.1); PROTHROMBIN TIME PATIENT 13.5 SEC (11.7-14.0)
[2020-08-14] MEDS ORDERED: LIDOCAINE 1%/EPI 1:100,000 20 ML VIAL. SQ ONE (12:00)
[2020-08-14] MEDS ORDERED: fentaNYL PF VIAL 100 MCG/2 ML VIAL IV ONE (12:00)
[2020-08-14] MEDS ORDERED: MIDAZOLAM HCL/PF 2 MG/2 ML VIAL. IV ONE (12:00)
[2020-08-14] MEDS ORDERED: ceFAZolin SODIUM IV Push 1 GM VIAL. IVP ONE (12:00)
--- NOTE | 2020-08-14 13:50 | NUR ---
Discharge Note: [facility] Discharge instructions and discharge home medications reviewed with Significant Other and a copy given. All questions have been answered and understanding verbalized. Patient ate lunch with no difficulty. The following instructions and handouts were given: Moderate sedation, Renal Dialysis diet and dialysis catheter placement. Discontinued lines and drains: left forearm PIV, dressing clean dry intact. Patient discharged to home with significant other via wheelchair to private vehicle.
--- NOTE | 2020-08-14 14:29 | RAD ---
Procedure: Tunneled hemodialysis catheter placement 08/14/2020 12:25 PM Clinical Indication: Dialysis Access Sterility: All elements of maximal sterile barrier technique including the use of a cap, mask, sterile gown, sterile gloves, large sterile sheet, appropriate hand hygiene, and 2% chlorhexidine for cutaneous antisepsis (or acceptable alternative antiseptic per current guidelines) were followed for this procedure. Consent: The procedure was explained in its entirety to the patient or the patients designated fuels sales representative by a member of the treatment team, including a discussion of the risks, benefits and commonly accepted alternatives to the procedure, as well as the expected consequences of no therapy whatsoever. Discussion of the risks included, but was not limited to, those that are most frequent and those that are rare but possibly severe or life-threatening, as well as the possibility of unforeseen complications. Technique and Findings: Following informed consent, a timeout procedure was performed. The patient was prepped and draped in the usual sterile fashion. Ultrasound interrogation of the right neck revealed patency and compressibility of the right internal jugular vein. A 21-gauge micropuncture was then used to gain access to this vein under ultrasound guidance. A hard copy ultrasound image was recorded. The needle was exchanged over a wire for a 4 Czech sheath which was used to guide an guidewire into the IVC. The skin over the right anterior chest wall was copiously anesthetized with 1% Lidocaine and a small dermatotomy was made. A 23 cm tipped cuff palindrome tunneled hemodialysis catheter was then tunneled subcutaneously towards the neck dermatotomy and deployed through a large caliber peel-away sheath under fluoroscopic guidance such that the distal tip resided in the mid right atrium. Manual flow rates were assessed and found to be within normal limits. The catheter was then flushed, packed with Heparin, capped, and sutured to the skin. The neck dermatotomy was closed with Dermabond. No immediate complications were identified. Sedation: Conscious sedation was administered for 20 minutes. The patient was monitored by a qualified independent observer throughout the time of sedation. Please refer to the medical record for exact doses of medications utilized to achieve moderate sedation. Fluoroscopy time: 1.0 min Dose area product: 3 Gycm2 Impression: Tunneled hemodialysis catheter placement as described
== END 2020-08-14 13:50 | disposition home or self-care (01) ==
LOC: INTRAD 10:13
PROVIDERS: ATTEND Internal Medicine Nephrology
DX: I13.2 Hypertensive heart and chronic kidney disease with heart failure and with stage 5 chronic kidney disease, or end stage renal disease (principal); N18.6 End stage renal disease; I50.9 Heart failure, unspecified; E11.22 Type 2 diabetes mellitus with diabetic chronic kidney disease; F17.210 Nicotine dependence, cigarettes, uncomplicated; Z79.899 Other long term (current) drug therapy; Z79.84 Long term (current) use of oral hypoglycemic drugs
CPT/HCPCS: 36415; 36558; 76937; 77001; 80048; 85025; 85610; 99152; C1750; C1769; C1892; J0690; J2250; J3010; J3490

== ENCOUNTER 2020-10-31 07:36 | Emergency (ER) | payer BC ==
[~2020-10-31] VITALS: Ht 185.4 cm; Wt 102.0 kg
[~2020-10-31 07:36] MED LIST changes: -LISI-334 PO; +LISI20TA18 PO
[2020-10-31 08:24] LABS: BASO # 0.1 x10^3/uL (0.0-0.2); BASO % 1 % (0-3); EOS # 0.3 x10^3/uL (0.0-0.7); EOS % 4 % (0-3); HEMATOCRIT 31.4 % (39.0-53.0); HEMOGLOBIN 10.1 g/dL (13.0-17.5); LYMPH # 1.5 x10^3/uL (1.0-4.8); LYMPH % 25 % (24-48); MEAN CORPUSCULAR HEMOGLOBIN 28 pg (25-35); MEAN CORPUSCULAR HGB CONC 32 g/dL (31-37); MEAN CORPUSCULAR VOLUME 86 fL (79-100); MONO # 0.6 x10^3/uL (0.0-1.1); MONO % 10 % (0-9); NEUT # 3.7 x10^3/uL (1.8-7.7); NEUT % 60 % (31-73); PLATELET COUNT 168 x10^3/uL (140-400); RED BLOOD COUNT 3.67 x10^6/uL (4.30-5.70); RED CELL DISTRIBUTION WIDTH 14.3 % (11.5-14.5); WHITE BLOOD COUNT 6.1 x10^3/uL (4.0-11.0)
[2020-10-31 08:37] LABS: CALCIUM 8.8 mg/dL (8.5-10.1); CREATININE 4.7 mg/dL (0.7-1.3); POTASSIUM 3.9 mmol/L (3.5-5.1)
[2020-10-31 08:42] LABS: ALBUMIN 3.6 g/dL (3.4-5.0); ALBUMIN/GLOBULIN RATIO 0.9 (1.0-1.7); MAGNESIUM 2.3 mg/dL (1.8-2.4); TOTAL BILIRUBIN 0.3 mg/dL (0.2-1.0); TOTAL PROTEIN 7.7 g/dL (6.4-8.2)
[2020-10-31 08:45] VITALS: BP 154/98
--- NOTE | 2020-10-31 09:08 | PHYS DOC ---
Past Medical History Past Medical History: Diabetes-Type II, Hypertension, Renal Disease, Renal Failure Additional Past Medical Histor: DIALYSIS WEDNESDAY//WED Past Surgical History: Other Additional Past Surgical Histo: TEMP DIALYSIS CATH R CHEST Smoking Status: Current Every Day Smoker Alcohol Use: Occasionally Drug Use: None General Adult EDM: Chief Complaint: OTHER COMPLAINTS HPI: HPI: Patient is a 49 year old male with a history of end-stage renal failure on hemodialysis every Wednesday, , Wednesday. For some reason patient had not have any dialysis for about 2 weeks. Patient called his dialysis center today so he can go to have dialysis, they told him to come to ER to have his lab work checked first. They told him that if his potassium level is normal then he can come to the dialysis center to today in the afternoon for his dialysis. Patient denies any headache, no chest pain, no abdominal pain, no cough or fever. Patient denies any trouble breathing, no blurry vision. Review of Systems: Review of Systems: Constitutional: Denies fever or chills. [] Eyes: Denies change in visual acuity. [] HENT: Denies nasal congestion or sore throat. [] Respiratory: Denies cough or shortness of breath. [] Cardiovascular: Denies chest pain or edema. [] GI: Denies abdominal pain, nausea, vomiting, bloody stools or diarrhea. [] : Denies dysuria. [] Musculoskeletal: Denies back pain or joint pain. [] Integument: Denies rash. [] Neurologic: Denies headache, focal weakness or sensory changes. [] Endocrine: Denies polyuria or polydipsia. [] Lymphatic: Denies swollen glands. [] Psychiatric: Denies depression or anxiety. [] Heart Score: Risk Factors: Risk Factors: DM, Current or recent (<one month) smoker, HTN, HLP, family history of CAD, obesity. Risk Scores: Score 0 - 3: 2.5% MACE over next 6 weeks - Discharge Home Score 4 - 6: 20.3% MACE over next 6 weeks - Admit for Clinical Observation Score 7 - 10: 72.7% MACE over next 6 weeks - Early Invasive Strategies Allergies: Allergies: Allergies Coded Allergies Type Severity Reaction Last Updated Verified No Known Drug Allergies 07/29/20 No Physical Exam: PE: Constitutional: Well developed, well nourished, no acute distress, non-toxic appearance. [] HENT: Normocephalic, atraumatic, bilateral external ears normal, oropharynx moist, no oral exudates, nose normal. [] Eyes: PERRLA, EOMI, conjunctiva normal, no discharge. [] Neck: Normal range of motion, no tenderness, supple, no stridor. [] Cardiovascular:Heart rate regular rhythm, no murmur [] Lungs & Thorax: Bilateral breath sounds clear to auscultation [] Abdomen: Bowel sounds normal, soft, no tenderness, no masses, no pulsatile masses. [] Skin: Warm, dry, no erythema, no rash. [] Back: No tenderness, no CVA tenderness. [] Extremities: No tenderness, no cyanosis, no clubbing, ROM intact, no edema. [] Neurologic: Alert and oriented X 3, normal motor function, normal sensory functi on, no focal deficits noted. [] Psychologic: Affect normal, judgement normal, mood normal. [] Current Patient Data: Labs: Laboratory Tests Test 10/31/20 07:53 White Blood Count 6.1 x10^3/uL (4.0-11.0) Red Blood Count 3.67 x10^6/uL (4.30-5.70) L Hemoglobin 10.1 g/dL (13.0-17.5) L Hematocrit 31.4 % (39.0-53.0) L Mean Corpuscular Volume 86 fL (79-100) Mean Corpuscular Hemoglobin 28 pg (25-35) Mean Corpuscular Hemoglobin Concent 32 g/dL (31-37) Red Cell Distribution Width 14.3 % (11.5-14.5) Platelet Count 168 x10^3/uL (140-400) Neutrophils (%) (Auto) 60 % (31-73) Lymphocytes (%) (Auto) 25 % (24-48) Monocytes (%) (Auto) 10 % (0-9) H Eosinophils (%) (Auto) 4 % (0-3) H Basophils (%) (Auto) 1 % (0-3) Neutrophils # (Auto) 3.7 x10^3/uL (1.8-7.7) Lymphocytes # (Auto) 1.5 x10^3/uL (1.0-4.8) Monocytes # (Auto) 0.6 x10^3/uL (0.0-1.1) Eosinophils # (Auto) 0.3 x10^3/uL (0.0-0.7) Basophils # (Auto) 0.1 x10^3/uL (0.0-0.2) Sodium Level 142 mmol/L (136-145) Potassium Level 3.9 mmol/L (3.5-5.1) Chloride Level 108 mmol/L (98-107) H Carbon Dioxide Level 24 mmol/L (21-32) Anion Gap 10 (6-14) Blood Urea Nitrogen 48 mg/dL (8-26) H Creatinine 4.7 mg/dL (0.7-1.3) H Estimated GFR (Cockcroft-Gault) 16.0 BUN/Creatinine Ratio 10 (6-20) Glucose Level 105 mg/dL (70-99) H Calcium Level 8.8 mg/dL (8.5-10.1) Magnesium Level 2.3 mg/dL (1.8-2.4) Total Bilirubin 0.3 mg/dL (0.2-1.0) Aspartate Amino Transferase (AST) 20 U/L (15-37) Alanine Aminotransferase (ALT) 37 U/L (16-63) Alkaline Phosphatase 72 U/L (46-116) Total Protein 7.7 g/dL (6.4-8.2) Albumin 3.6 g/dL (3.4-5.0) Albumin/Globulin Ratio 0.9 (1.0-1.7) L Laboratory Tests 10/31/20 07:53 Laboratory Tests 10/31/20 07:53 Vital Signs: Vital Signs Date Time Temp Pulse Resp B/P (MAP) Pulse Ox O2 Delivery O2 Flow Rate FiO2 10/31/20 07:45 98.3 80 18 161/102 (121) 96 Room Air 98.3 EKG: EKG: [] Radiology/Procedures: Radiology/Procedures: [] Course & Med Decision Making: Course & Med Decision Making Pertinent Labs and Imaging studies reviewed. (See chart for details) Patient is a 49-year-old male with history of end-stage renal failure, his potassium level is okay here in the ER, his blood pressure was slightly elevated, patient will be discharged from the ER, patient said he will go to his dialysis center today in this afternoon for his dialysis. Ariadne Disclaimer: Ariadne Disclaimer: This electronic medical record was generated, in whole or in part, using a voice recognition dictation system. Departure Departure Impression: Primary Impression: Renal failure Additional Impression: HTN (hypertension) Disposition: 01 DC HOME SELF CARE/HOMELESS Condition: STABLE Referrals: NO PCP (PCP) ADRIÁN DE LOS SANTOS MD PLEASE CALL YOUR [facility] REGISTERED NURSE FOR FOLLOW UP THIS WEEK. YOU NEED TO RESUME YOUR DIALYSIS [facility] Patient Instructions: End Stage Kidney Disease, Hypertension Additional Instructions: Thank you for visiting our Emergency Department. We appreciate you trusting us with your care. If any additional problems come up don't hesitate to return to visit us. Please follow up with your primary care provider so they can plan additional care if needed and know about the problem that you had. If symptoms worsen come back to the Emergency Department. Any concerning symptoms that start such as chest pain, shortness of air, weakness or numbness on one side of the body, running high fevers or any other concerning symptoms return to the ER. TERRENCE SAGE DO Oct 31, 2020 09:08
== END 2020-10-31 09:20 | disposition home or self-care (01) ==
LOC: ER 07:36
DX: N18.6 End stage renal disease (principal); I10 Essential (primary) hypertension; E11.9 Type 2 diabetes mellitus without complications; F17.200 Nicotine dependence, unspecified, uncomplicated; Z98.890 Other specified postprocedural states
CPT/HCPCS: 36415; 80053; 83735; 85025; 99284